=== PATIENT | male | born 1960 | race Two or more races ===

== ENCOUNTER 2025-03-27 11:31 | Inpatient (IN) | payer MEDICARE, SELFPAY ==
[2025-03-27] VITALS (13 sets, daily range): BP systolic 87–161; BP diastolic 63–97; PULSE 86–103; RESP 14–98; TEMP 36.4–36.8; O2SAT 95–99; BMI 26.6
--- NOTE | 2025-03-27 | XR_ITS ---
Examination: MRI brain without intravenous contrast. Date and time of exam: March 27, 2025 1407 hours INDICATIONS: Sudden onset weakness in the legs nausea altered mental status confusion decreased responsiveness today Technique: Multiple axial and sagittal images of the brain obtained. Siemens high-resolution 1.5 Maria Elena short bore scanners utilized. Sagittal sections, T1-weighted, TR 500, TE 14, are performed. Axial sections proton-density and T2-weighted have been obtained. Inversion recovery axial images, TR 9, 260, TE 111, TI 2500. Diffusion weighted images, axial sections, TR 4800, TE 128, B value 1000 Axial sections, ADC map, TR 4800, TE 128 Findings: Enlargement of the sella turcica is not present. The optic chiasm and infundibular are not remarkable. Prepontine and interpeduncular cisterns are not enlarged. There is no localized enlargement of the medulla or mary. Fourth ventricle and cerebellar tonsils appear normal in position. No subacute area of hemorrhage density is seen. Mass in the cerebellopontine angle region is not evident. Globes symmetrical. Orbital musculature including medial lateral rectus muscles do not exhibit abnormality. Diffusion-weighted images demonstrate 17 mm focus restricted diffusion right temporal lobe. Increased white matter signal present in the right temporal lobe Mass effect upon the ventricular system is not identified. Impression: 17 mm acute infarct right temporal lobe
--- NOTE | 2025-03-27 11:54 | EKG_ITS ---
[facility] Test Date: 2025-03-27 Pat Name: LUCIA PELAYO Department: Room: - Gender: Male [employer] Helper: : 1960 Requested By: Kristine Baptiste Order Number: [id number] Reading MD: Kristine Baptiste Measurements Intervals [place] Rate: 81 P: VA: QRS: 69 QRSD: 123 T: 54 QT: 347 QTc: 404 Interpretive Statements ATRIAL FIBRILLATION MODERATE INTRAVENTRICULAR CONDUCTION DELAY [110+ ms QRS DURATION] ABNORMAL RHYTHM ECG No previous ECG available for comparison /store/S0/[id number].pdf
--- NOTE | 2025-03-27 11:54 | XR_ITS ---
Examination: CTA carotids with intravenous contrast CTA brain, head with intravenous contrast. 2-D sagittal, coronal reconstructions. 3-D reconstructions. Exam date and time: March 27, 2025 1203 hours INDICATIONS: Generalized weakness beginning 6:00 AM this morning CTDI: vol (mGy) 27 DLP: (mGycm) 460 Technique: Multiple CTA axial brain, head carotid images post intravenous contrast injection 75 cc, Isovue-370. 2-D sagittal, coronal reconstructions. 3-D reconstructions, 3-D post processing including vascular maximum intensity projection images. Low dose protocols were performed. One or more of the following dose reduction techniques were used; automated exposure control, adjustment of the mA and/or KV according to patient size, use of iterative reconstruction technique. Findings: No significant common carotid carotid bifurcation or internal carotid artery stenoses Codominant vertebral arteries with no critical stenoses Juxtasellar supraclinoid portions both internal carotid arteries do fill Occlusion M1 segment right middle cerebral artery with decreased filling right middle cerebral artery trifurcation vessels Basilar artery posterior cerebral branches and anterior cerebral arteries fill IMPRESSION: No significant neck arterial stenoses Occlusion M1 segment right middle cerebral artery Consider MRI MRA without contrast Protocol follow-up
--- NOTE | 2025-03-27 11:58 | PD.EDAMS ---
Altered Mental Status RME/HPI General Chief Complaint: Altered Mental Status Stated Complaint: AMS Time Seen by Provider: 03/27/25 11:52 Source: patient and family Arrival date/time: 03/27/25 11:31 Mode of arrival: wheelchair Limitations: no limitations RME / HPI RME / HPI narrative: DR. HEAD MAIN ED EVALUATION: Patient was hiking and felt suddenly weak and could not walk anymore and felt nauseated but did not vomit. There was no fever. No cough. No fall or accident. Denies any chest pain or shortness of breath. This happened about an hour prior to the emergency room arrival. Patient came in with family by private vehicle. MD complaint: confusion, decreased responsiveness and weakness Onset (ago): minute(s) Time: 11:59 Timing confirmed by: spouse Severity: mild Consistency of symptoms: constant Associated symptoms: denies other symptoms Related Data Allergies Allergy/AdvReac Type Severity Reaction Status Date / Time No Known Allergies Allergy Verified 03/27/25 11:43 Review of Systems Review of Systems Systems Reviewed: All systems reviewed, normal except as documented Narrative Review of Systems: GEN: No fever, no chills, no weight loss EYES: No discharge, no visual changes, no pain HEENT: No ear pain, no congestion, no sore throat PULM: No shortness of breath, no cough, no congestion CV: No chest pain, no dyspnea on exertion, no palpitations GI: + nausea, no vomiting, no diarrhea, no pain, no constipation : No frequency, no urgency and no dysuria MUSC/SKEL: No joint pain, no back pain SKIN: No rash PSYCH: No hallucinations, no depression HEME/LYMPH: No easy bleeding or bruising tendencies NEURO: + confusion, + decreased responsiveness, + weakness (could not walk see HPI), no headache Past Medical History Social History SMOKING STATUS: Never smoker SUBSTANCE USE: does not use ALCOHOL: Never Past Medical History Comments PMH COMMENT: History of hypertension ED Exam Narrative Physical exam: General, patient is alert oriented x 4 Not in distress well-nourished Head and neck, atraumatic normocephalic Pupils equal reactive, ENT exam no mucous membranes Neck is supple tracheal stenosis was not large Chest, no chest tenderness Normal air entry bilaterally No added sounds Cardiovascular, normal heart sounds, no murmurs, no gallop, regular rate and rhythm Abdominal, soft nontender no enlarged organs Normal renal angles, bowel sounds are normal no organomegaly Genitourinary, no abdominal hernias, normal genitalia Lower extremity, no edema, no redness, no deformity Musculoskeletal, no joint effusion, no joint tenderness, Neuro, muscle power equal bilaterally, cranial nerves intact, no sensory deficits, no ataxia Skin, no rash no petechiae General Limitations: Present no limitations Course Quality Measures none Orders Category Date Time Status Patient Condition Routine Admission 03/27/25 11:53 Ordered Mule Spinner now Care 03/27/25 11:53 Active Continuous Pulse Oximetry QSHIFT Care 03/27/25 11:53 Completed MRI Screening NOW Care 03/27/25 11:54 Active MRI Screening NOW Care 03/27/25 12:20 Active NIH Stroke Scale NOW Care 03/27/25 11:53 Active Notify provider NEEDED Care 03/27/25 11:53 Active Nurse Swallow Screen x1 Care 03/27/25 11:53 Active Consult to Neurology / Tele-Neurology Stat Cons 03/27/25 11:[address] angio stroke protocol Stat Exams 03/27/25 11:[address] stroke protocol Stat Exams 03/27/25 12:00 Completed MR head/brain wo con Urgent Exams 03/27/25 Completed MR stroke protocol Stat Exams 03/27/25 11:54 Ordered B-Type Natriuretic Peptide Stat Lab 03/27/25 12:00 Completed Basic Metabolic Panel Stat Lab 03/27/25 12:00 Completed C-Reactive Protein Stat Lab 03/27/25 12:00 Completed CBC Stat Lab 03/27/25 12:00 Completed Glycohemoglobin w (eAG) Stat Lab 03/27/25 12:00 Completed Lipid Panel Stat Lab 03/27/25 12:00 Completed MHATP/TP-PA* Stat Lab 03/27/25 12:00 Received Magnesium Stat Lab 03/27/25 12:00 Completed Partial Thromboplastin Time Stat Lab 03/27/25 12:00 Completed Prothrombin Time with INR Stat Lab 03/27/25 12:00 Completed Sed Rate (ESR) Stat Lab 03/27/25 12:00 Completed Syphilis Stat Lab 03/27/25 12:00 Completed Troponin I Stat Lab 03/27/25 12:00 Completed Urinalysis Routine Lab 03/27/25 13:00 Completed Aspirin Med 03/27/25 12:20 Discontinued 325 mg PO X1 ONE Labetalol IV [Trandate IV] Med 03/27/25 11:53 Active 10 mg IVP Q15M PRN Ondansetron Inj [Zofran Inj] Med 03/27/25 11:53 Active 4 mg IV Q4HR PRN Sodium Chloride 0.9% 1000 ml [Ns] 1,000 ml Med 03/27/25 11:53 Active IV 100 mls/hr Code Status Routine Oth 03/27/25 11:53 Ordered EKG (RT) Stat RT 03/27/25 11:54 Draft Oxygen Delivery NOW RT 03/27/25 11:53 Active Referral Risk Developer NOW SS 03/27/25 11:53 Active Vital Signs Vital signs: Vital Signs Temperature 98.2 F 03/27/25 11:47 Pulse Rate 90 03/27/25 11:47 Respiratory Rate 18 03/27/25 11:47 Blood Pressure 157/83 H 03/27/25 11:47 Pulse Oximetry (%) 98 03/27/25 11:47 Oxygen Delivery Method Room Air 03/27/25 11:47 Procedures -ED EKG Interpretation #1: Date of EK03/27/25 Time of EK:22 Rate: 81 Interpretation: Interpreted by me Additional EKG comment: atrial fibrillation, rate 81, no ischemia Altered Mental Status MDM Narrative MDM Narrative:: I, Irma Jara, abraham scribing for and in the presence of Dr. Head. Syphilis is positive. Will wait on the MRI and consider LP if needed. Head CT is negative, see full report below. CT angio showed no significant neck arterial stenoses but there is an occlusion M1 segment right middle cerebral artery, see full report below. MRI shows 17 mm acute infarct right temporal lobe. Hospitalist admitted the patient for acute infarct right temporal lobe and neurologist consulted. patient had MRI which showed presence of right temporal lobe stroke Patient is right-handed however his stroke area does coincide with speech but it does not coincide with the correct dominance of hemisphere However he does not qualify for tPA or TNKase due to the fact that he is already almost 10 hours after the onset of his symptoms This started at 7 AM I spoke with the teleneurologist about her possibility of doing thrombectomy and he is also not in the right NIH score to obtain this intervention as is her NIH score barely makes him at 2 and it should be 4 and above Patient will be admitted to the hospital medicine team for management of stroke and further workup Patient vital signs were normal Final assessment Right temporal stroke acute Plan Admit to the hospital medicine team Patient data External records reviewed:: None (no previous visits) Clinical information provided by:: patient Social determinants that could affect healthcare access:: none Patient has the following chronic illnesses:: No known PMHx, surgeries, daily medications, or known allergies. How is presenting disease/condition affected by chronic disease/condition?: no chronic disease Evaluation data The following diagnostics were reviewed and interpreted by me:: lab results and radiology exam(s) Lab and/or radiology exams considered but not ordered:: none Interpretation Summary: See above under MDM narrative. RADIOLOGY Procedure(s): CT stroke protocol Accession Number(s): [id number] cc: Neel Martinez DO; Brad Young MD~ Examination: CT brain head without contrast. 2-D sagittal coronal reconstructions Date and time of exam:March 27, 2025 1126 hours INDICATIONS: Stroke alert, onset focal neurologic deficit today Technique: Multiple CT axial sections of the brain have been obtained, 5 mm slice thickness. Contrast has not been administered. 2-D sagittal, coronal reconstructions have been obtained Low dose protocols were performed. One or more of the following dose reduction techniques were used; automated exposure control, adjustment of the mA and/or KV according to patient size, use of iterative reconstruction technique. Findings: No significant ventricular enlargement. Intra-axial or extra-axial hemorrhage density is not seen. No mass effect or midline shift Basal cisterns are not remarkable. Fourth ventricle is midline. Cranial vault intact. Impression: Negative for acute hemorrhage, mass effect or midline shift Dictated By: Brad Young MD Procedure(s): CT angio stroke protocol Accession Number(s): [id number] cc: Neel Martinez DO; Brad Young MD; Jigar Hurley MD~ Examination: CTA carotids with intravenous contrast CTA brain, head with intravenous contrast. 2-D sagittal, coronal reconstructions. 3-D reconstructions. Exam date and time: March 27, 2025 1203 hours INDICATIONS: Generalized weakness beginning 6:00 AM this morning CTDI: vol (mGy) 27 DLP: (mGycm) 460 Technique: Multiple CTA axial brain, head carotid images post intravenous contrast injection 75 cc, Isovue-370. 2-D sagittal, coronal reconstructions. 3-D reconstructions, 3-D post processing including vascular maximum intensity projection images. Low dose protocols were performed. One or more of the following dose reduction techniques were used; automated exposure control, adjustment of the mA and/or KV according to patient size, use of iterative reconstruction technique. Findings: No significant common carotid carotid bifurcation or internal carotid artery stenoses Codominant vertebral arteries with no critical stenoses Juxtasellar supraclinoid portions both internal carotid arteries do fill Occlusion M1 segment right middle cerebral artery with decreased filling right middle cerebral artery trifurcation vessels Basilar artery posterior cerebral branches and anterior cerebral arteries fill IMPRESSION: No significant neck arterial stenoses Occlusion M1 segment right middle cerebral artery Consider MRI MRA without contrast Protocol follow-up Dictated By: Brad Young MD Procedure(s): MR head/brain wo con Accession Number(s): [id number] cc: Neel Martinez DO; Brad Young MD; Jigar Hurley MD~ Examination: MRI brain without intravenous contrast. Date and time of exam: March 27, 2025 1407 hours INDICATIONS: Sudden onset weakness in the legs nausea altered mental status confusion decreased responsiveness today Technique: Multiple axial and sagittal images of the brain obtained. Siemens high-resolution 1.5 Maria Elena short bore scanners utilized. Sagittal sections, T1-weighted, TR 500, TE 14, are performed. Axial sections proton-density and T2-weighted have been obtained. Inversion recovery axial images, TR 9, 260, TE 111, TI 2500. Diffusion weighted images, axial sections, TR 4800, TE 128, B value 1000 Axial sections, ADC map, TR 4800, TE 128 Findings: Enlargement of the sella turcica is not present. The optic chiasm and infundibular are not remarkable. Prepontine and interpeduncular cisterns are not enlarged. There is no localized enlargement of the medulla or mary. Fourth ventricle and cerebellar tonsils appear normal in position. No subacute area of hemorrhage density is seen. Mass in the cerebellopontine angle region is not evident. Globes symmetrical. Orbital musculature including medial lateral rectus muscles do not exhibit abnormality. Diffusion-weighted images demonstrate 17 mm focus restricted diffusion right temporal lobe. Increased white matter signal present in the right temporal lobe Mass effect upon the ventricular system is not identified. Impression: 17 mm acute infarct right temporal lobe Dictated By: Brad Young MD Medications / Prescriptions Medications or Prescriptions considered but not ordered:: none Medication administrations:: Medication Administration History Sodium Chloride (Ns) 1,000 mls @ 100 mls/hr IV .Q10H ONE Stop: 03/27/25 21:52 Last Admin: 03/27/25 12:36 Dose: 100 mls/hr Documented By: KIMBERLY Labetalol HCl (Labetalol Inj 5 Mg/Ml Vial 20 Ml) 10 mg IVP Q15M PRN PRN Reason: HYPER Ondansetron HCl (Ondansetron Inj 2 Mg/Ml Inj 2 Ml) 4 mg IV Q4HR PRN PRN Reason: NAUSEA OR VOMITING Stop: 04/26/25 11:52 Discontinued Medications Aspirin (Aspirin 325 Mg Tablet) 325 mg PO X1 ONE Stop: 03/27/25 12:21 Last Admin: 03/27/25 12:36 Dose: 325 mg Documented By: KIMBERLY see above Consultations Consultation(s) initiated? (list below): Yes Consultation #1 (Physician, Specialty, Details): Discussed test HPI, PMHx, lab, radiology results and/or management with teleneurologist Dr Neel Martinez. No TPA recommended. Recommends ASA. Time: 12:30 Consultation #2 (Physician, Specialty, Details): Discussed test HPI, PMHx, lab, radiology results and/or management with hospitalist. Will admit for further evaluation and management. Accepts patient for admission. Time: 15:55 Consultation #3 (Physician, Specialty, Details): Discussed test HPI, PMHx, lab, radiology results and/or management with teleneurologist Dr Neel Martinez. Same recommendations after MRI results, ASA and plavix to be given but no TPA. Time: 16:20 Diagnosis Differential diagnosis altered mental status: altered mental status, dementia and other (TIA, CVA) Most likely diagnosis given after review of the tests above:: Acute infarct right temporal lobe Admission Indicated Admission indicated?: indicated Admission Request Was there a request for admission?: Yes Admission Attestation Admission request attestation: Discussed case with [] from Hospitalist service regarding admission. Discussed patients ED course, exam findings, labs, and radiology results. The Hospitalist [agrees,declines] to accept the patient for admission. Disposition Plan Disposition Plan: Admit Critical Care Time Critical Care Time Critical Care Time: Yes Total Critical Care Time (min.): 60 Attestation: The high probability of sudden, clinically significant deterioration in the patient?s condition required the highest level of my preparedness to intervene urgently. The services I provided to this patient were to treat and/or prevent clinically significant deterioration. Services included the following: chart data review, reviewing nursing notes and/or old charts, documentation time, device sales consultant collaboration regarding findings and treatment options, medication orders and management, direct patient care, vital sign assessments and ordering, interpreting and reviewing diagnostic studies and lab tests. Aggregate critical care time includes only time during which I was engaged in work directly related to the patient?s care, as described above, whether at bedside or elsewhere in the Emergency Department. It did not include time spent performing other reported procedures or the services of residents, students, nurses or physician assistants. Discharge Plan Plan Patient Disposition: Admit Acute Care w/in Hospital Prescriptions/Referrals Referrals: Jigar Hurley([facility])MD [Primary Care Provider] - In 1 week Problem List Clinical Impression: Right temporal lobe infarction Patient/Caregiver Discharge Instructions Print Language: Serbian Stand Alone Forms: Mimi Award Info., Patient Portal Info Letter
[2025-03-27 12:13] LABS: Basophils # (Auto) 0.1 Thou/mm3 (0.0-0.2); Basophils % (Auto) 1 % (0-2.5); Eosinophils # (Auto) 0.1 Thou/mm3 (0.0-0.5); Eosinophils % (Auto) 1 % (0-10); Hematocrit 47.7 % (41.0-53.0); Hemoglobin 16.8 g/dL (13.5-16.0); Immature Granulocytes % (Auto) 0 % (0-0); Immature Granulocytes Auto 0.01 Thou/mm3 (0.00-0.00); Lymphocytes # (Auto) 1.5 Thou/mm3 (1.0-4.8); Lymphocytes % (Auto) 21 % (10-50); Mean Corpuscular HGB Conc 35.2 g/dl (31.0-37.0); Mean Corpuscular Hemoglobin 28.9 pg (25.0-35.0); Mean Corpuscular Volume 82 fL (80-100); Monocytes # (Auto) 0.7 Thou/mm3 (0.0-0.8); Monocytes % (Auto) 9 % (0-12); Neutrophils % (Auto) 68 % (37-80); Nucleated Red Blood Cell % 0 /100 WBC (0); Platelet Count 233 Thou/mm3 (140-440); RDW Standard Deviation 38.3 fL (35.1-43.9); Red Blood Count 5.82 Miln/mm3 (4.50-5.90); White Blood Count 7.4 Thou/mm3 (3.8-10.6)
[2025-03-27 12:25] LABS: Partial Thromboplastin Time 24.7 Seconds (22.0-36.0); Prothrombin Time 10.6 Seconds (9.0-12.2); Sed Rate (ESR) 14 mm/hr (0-20)
[2025-03-27 12:26] LABS: B-Type Natriuretic Peptide 92 pg/mL (0-100)
--- NOTE | 2025-03-27 12:28 | ESCONSULT_ITS ---
Tele Neuro Consultation Consultation Date 03/27/25 Most Recent Vital Signs Last Vital Signs Temp 98.2 F 03/27/25 11:47 Pulse 90 03/27/25 11:47 Resp 18 03/27/25 11:47 BP 157/83 H 03/27/25 11:47 Pulse Ox 98 03/27/25 11:47 O2 Del Method Room Air 03/27/25 11:47 Laboratory-Coagulation Panel PT 10.6 Seconds (9.0-12.2) 03/27/25 12:00 INR 1.0 (0.9-1.3) 03/27/25 12:00 APTT 24.7 Seconds (22.0-36.0) 03/27/25 12:00 Consultation Narrative [facility] Tele[facility]urology Consult Services Patient Name:???Lawrence Flores Date of :???1960 Identification Number:??? Date of Service:???03/27/2025 11:46:36 Diagnosis:?G93.41 - Encephalopathy Metabolic Impression: ?65YOM with a PMHx of HTN presenting to the [facility] ED in the setting of acute onset blurred vision, lethargy, and word finding difficulty. Exam grossly nonfical with subtle difficulty describing scene card yet able to name objects and with no focal lateralizing deficit. In setting of presentation, suspect acute encephalopathy, unclear as far as source, with a low suspicion for an acute ischemic process, yet would recommend obtaining MRI brain to definitively exclude a small vessel ischemic abnormality prompting subtle aphasia. Our recommendations are outlined below. Recommendations: ? Stroke/Telemetry Floor ? Neuro Checks ? Bedside Swallow Eval ? DVT Prophylaxis ? IV Fluids, Normal Saline ? Head of Bed 30 Degrees ? Euglycemia and Avoid Hyperthermia (PRN Acetaminophen) ? Initiate or continue Aspirin 325 MG daily ?-f/u CTA head/neck, CTP ?-obtain MRI brain w/o contrast (routine) ? --if + for acute stroke = will need full stroke workup (including MRA head/neck w/o contrast, lipid panel, A1c, TTE, asa/atorvastatin, etc) ? --allow for permissive HTN up to 180 systolic while MRI brain pending ? --if MRI negative for stroke = goal of normotension per primary team (if positive for stroke would adjust permissive HTN goal for systolic up to 220) ?-obtain B12, folate, TSH, ammonia ?-obtain UA, CXR ?-obtain UDS, EtOH Level ?-obtain CMP, CBC if not already done ?-When possible, avoid benzodiazepines, opioid pain medications, and anticholinergic medications ?-dvt ppx per primary team ?-PT/OT/ST consults ?-call neurology immediately with significant change in exam Sign Out: ? Discussed with Emergency Department Provider Advanced Imaging: Advanced Imaging Deferred because: Stroke not suspected with clinical presentation and exam Metrics: Last Known Well: 03/27/2025 11:00:00 Dispatch Time: 03/27/2025 11:46:36 Arrival Time: 03/27/2025 11:31:00 Initial Response Time: 03/27/2025 11:47:40Symptoms: Slow responsiveness, word finding difficulty, blurred vision. Initial patient interaction: 03/27/2025 11:56:28 NIHSS Assessment Completed: 03/27/2025 11:56:21Patient is not a candidate for Thrombolytic. Thrombolytic Medical Decision: 03/27/2025 11:56:22Patient was not deemed candidate for Thrombolytic because of following reasons: other diagnosis suspected Suspect metabolic encephalopathy in setting of exam. Stroke severity too mild (non-disabling) . I personally Reviewed the CT Head and it Showed no blood products or early ischemic changes Primary Provider Notified of Diagnostic Impression and Management Plan on: 03/27/2025 12:18:56 History of Present Illness:Patient is a 65 year old Male. Patient was brought by private transportation with symptoms of Slow responsiveness, word finding difficulty, blurred vision. 65YOM with a PMHx of HTN presenting with acute onset of word finding difficulty, confusion, and blurred vision. Per staff an per family, patient was out on a hike with his sister this morning when at 0700 he suddenly became confused, complaining of blurred vision and with slow responses. Family noticed that he was having difficulty getting his words out at that time, and patient complained of mild lightheadedness and nausea. Symptoms resolved after 15-30 minutes; however, they recurred at appx 11am today. Per family, no recent falls or head trauma, and no known history of strokes or seizures. Past Medical History: ?Hypertension ?There is no history of Atrial Fibrillation ?There is no history of Stroke ?There is no history of Seizures Medications: No Anticoagulant use? Antiplatelet use:?Yes?[id number] Reviewed EMR for current medications Allergies:? Reviewed Social History: Drug Use: No Family History: There is no family history of premature cerebrovascular disease pertinent to this consultation ROS : 14 Points Review of Systems was performed and was negative except mentioned in HPI. Past Surgical History: There Is No Surgical History Contributory To Today?s Visit Examination: BP(162/90),?Pulse(102),?Blood Glucose(110) 1A: Level of Consciousness - Alert; keenly responsive?+ 0 1B: Ask Month and Age - Both Questions Right?+ 0 1C: Blink Eyes & Squeeze Hands - Performs Both Tasks?+ 0 2: Test Horizontal Extraocular Movements - Normal?+ 0 3: Test Visual Brice - No Visual Loss?+ 0 4: Test Facial Palsy (Use Grimace if Obtunded) - Normal symmetry?+ 0 5A: Test Left Arm Motor Drift - No Drift for 10 Seconds?+ 0 5B: Test Right Arm Motor Drift - No Drift for 10 Seconds?+ 0 6A: Test Left Leg Motor Drift - No Drift for 5 Seconds?+ 0 6B: Test Right Leg Motor Drift - No Drift for 5 Seconds?+ 0 7: Test Limb Ataxia (FNF/Heel-Sharma) - No Ataxia?+ 0 8: Test Sensation - Normal; No sensory loss?+ 0 9: Test Language/Aphasia - Mild-Moderate Aphasia: Some Obvious Changes, Without Significant Limitation?+ 1 10: Test Dysarthria - Normal?+ 0 11: Test Extinction/Inattention - No abnormality?+ 0 NIHSS Score:?1 NIHSS Free Text :?Some subtle difficulty with describing objects on scene card, yet able to name and repeat with little difficulty Pre-Morbid Modified Barren Scale:1 Points = No significant disability despite symptoms; able to carry out all usual duties and activities Spoke with :?Dr Baptiste This consult was conducted in real time using interactive audio and video technology. Patient was informed of the technology being used for this visit and agreed to proceed. Patient located in hospital and provider located at home/office setting. Patient is being evaluated for possible acute neurologic impairment and high probability of imminent or life-threatening deterioration. I spent total of 25 minutes providing care to this patient, including time for face to face visit via telemedicine, review of medical records, imaging studies and discussion of findings with providers, the patient and/or family. Dr Neel Martinez [facility] For Inpatient follow-up with [facility] physician please call [facility] at . As we are not an outpatient service for any post hospital discharge needs please contact the hospital for assistance. If you have any questions for the [facility] physicians or need to reconsult for clinical or diagnostic changes please contact us via [facility] at .
[2025-03-27 12:33] LABS: Anion Gap 7 (7-16); BUN/Creatinine Ratio 9 Ratio (12-20); Blood Urea Nitrogen 9 mg/dL (9-23); Calcium 9.5 mg/dL (8.3-10.6); Carbon Dioxide 25.9 mMol/L (20.0-31.0); Chloride 105 mMol/L (98-107); Estimated Creatinine Clearance 68.9 mL/min (>60); Glucose 104 mg/dL (74-106); Magnesium 2.2 mg/dL (1.6-2.6); Osmolality,Calculated 274 (275-295); Potassium 3.7 mMol/L (3.4-5.1); Sodium 138 mMol/L (136-145); Troponin I < 0.002 ng/mL (0.0-0.045); eGFR > 60 See Note
[2025-03-27] MEDS: Aspirin 325 MG TABLET PO (12:36)
[2025-03-27] MEDS: SODIUM CHLORIDE 0.9% 1000 ML 1,000 ML 100 ML IV (12:36)
[2025-03-27 12:52] LABS: MHATP/TP-PA* See Sep Rpt; Syphilis Reactive (Nonreactive)
[2025-03-27 13:18] LABS: Collection Type, Urine Clean Catch; Squamous Epithelial Cell,Urine 0 /hpf (0-5); WBC,Urine 0 /hpf (0-5)
[2025-03-27 13:27] LABS: Bilirubin,Urine Negative (Negative); Blood,Urine Negative (Negative); Clarity,Urine Clear (Clear/Hazy); Color,Urine Colorless (Lt Yel-Yel); Glucose, Urine Negative (Negative); Ketones,Urine Negative (Negative); Leukocyte Esterase,Urine Negative (Negative); Nitrite,Urine Negative (Negative); Protein,Urine Negative (Neg - Trace); RBC,Urine < 1 /hpf (0-3); Urobilinogen,Urine Negative mg/dL (0.0-1.0)
[2025-03-27 15:55] LABS: Glucose Estimated Average 114 mg/dL (80-131); Hemoglobin A1C 5.6 % Hgb (4.8-6.0)
[2025-03-27 16:17] LABS: C-Reactive Protein < 0.5 mg/dL (0.0-0.9); Cardiac Risk Estimate 5.3 RATIO (4.0-6.7); Cholesterol 227 mg/dL (132-200); HDL Cholesterol 43 mg/dL (40-60); LDL Cholesterol,Calculated 135 mg/dL (0-130); Triglycerides 243 mg/dL (30-150)
--- NOTE | 2025-03-27 16:25 | PC.NURSE ---
STATED THAT PT WAS GETTING ANXIOUS AND MOVING AROUND IN BED WHEN HE SAT ON HIS IV LINE AND ACCIDENTALLY PULLED OUT IV. IV RESTARTED AT THIS TIME. STATES THAT PT'S SEEMS CONFUSED AND ANXIOUS. PT IS ANSWERING QUESTIONS BUT DOES SEEMS SLOW TO RESPOND. WILL INFORM ER DOCTOR.
--- NOTE | 2025-03-27 16:27 | PC.NURSE ---
DR BOONE INFORMED OF 'S CONCERNED THAT PT IS CONFUSED AND ANXIOUS. HE WILL BE IN TO SEE PT
--- NOTE | 2025-03-27 16:30 | PC.NURSE ---
RESIDENT BISHOP AT BEDSIDE TO SEE PT
--- NOTE | 2025-03-27 18:07 | PD.RESHP ---
Documentation for date of: 03/27/25 HPI History of Present Illness Chief complaint: Difficulty finding words and abnormal behavior History of present illness: HPI: A 65-year-old male patient with past medical history of hypertension, hyperlipidemia, was brought to the ED by his after he was noticed to be having difficulty finding words, abnormal facial expression, and not able to follow command. At 7 AM the patient and his were hiking however has noticed that he was unable to follow command. And when she was asking him and the question he would hesitate to answer and has difficulty to find the word to answer. She also reported that his facial expression changed as he always smiling. However, now he seems unaware of fluid surrounding. However, sometimes he respond to some questions with yes or no or simple questions. She thought that she was having hypoglycemia because he had been hiking at that time and she gave him a glass of water however was unable to hold and dropped it to the floor.?When she decided to bring him to the hospital and noticed when he was walking to the car he was unable to get up into the car. She denied any mouth deviation, however she reported that she give him gum and noticed that there was having drooling of saliva from the left side. Home medications: Pending med reconciliation ED course:NIHSS score was 1 at the ED patient was noticed to have blood pressure of 157/83, pulse rate of 90, respiratory rate of 18, temperature of 98.2, telehealth specialist recommended MRI, CT scan, CTA,. Brain CT scan was negative for any hemorrhage or mass effect MRI showed that the patient has 17 mm acute infarct of the right temporal lobe. 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 Teleneurologist recommended to admit the patient on aspirin and Plavix as his NIHSS score less than 4 no need for thrombectomy at this time. However he recommended that the patient symptoms worsen consider referring for thrombectomy. PMH: As above Social hx: Alcohol: Denied Tobacco: Denied Illicit drugs: Denied Allergies: No known allergies Review of Systems Review of Systems Systems Reviewed: All systems reviewed, normal except as documented Exam Vital Signs Temp Pulse Resp BP Pulse Ox O2 Del Method 98.3 F 88 17 161/97 H 97 Room Air 03/27/25 16:18 03/27/25 16:18 03/27/25 16:18 03/27/25 16:18 03/27/25 16:18 03/27/25 16:18 Narrative Exam GEN: AOx3, No facial asymmetry, HEENT: NC/AC, PERRLA, oral mucosa moist, neck supple CVS: RRR, S1-S2 present, no murmurs appreciated RESP: CTAB GI: soft,non distended, non tender, NBS MSK: able to move all 4 limbs, no lower extremity edema SKIN: warm and dry RECREATION OFFICER: NIH SS score 1, for the aphasia, however it was limited because of patient inability to follow commands. Results: Labs 03/28/25 01:08 03/28/25 05:19 Labs: Short CBC 03/27/25 Range/Units 12:00 WBC 7.4 (3.8-10.6) Thou/mm3 Hgb 16.8 H (13.5-16.0) g/dL Hct 47.7 (41.0-53.0) % Plt Count 233 (140-440) Thou/mm3 BMP 03/27/25 12:00 Sodium 138 Potassium 3.7 Chloride 105 Carbon Dioxide 25.9 BUN 9 Creatinine 1.0 Glucose 104 Calcium 9.5 Cardiac Enzymes 03/27/25 Range/Units 12:00 Troponin I < 0.002 (0.0-0.045) ng/mL Urine 03/27/25 Range/Units 13:00 Urine Color Colorless A (Lt Yel-Yel) Urine Clarity Clear (Clear/Hazy) Urine pH 7.0 (5.0-7.0) Ur Specific Drexel 1.020 (1.001-1.035) Urine Protein Negative (Neg - Trace) Urine Glucose (UA) Negative (Negative) Quality Measures Quality Measures none Advance care planning discussed with:: patient and spouse Medications Home Medications and Allergies Home Medications ?Medication ?Instructions ?Recorded ?Confirmed ?Type amlodipine 10 mg tablet (Norvasc) 10 mg PO QDAY 03/28/25 03/28/25 History ascorbic acid (vitamin C) 1,000 mg 1 g PO QDAY 03/28/25 03/28/25 History tablet (C-1000) aspirin 81 mg tablet 81 mg PO QDAY 03/28/25 03/28/25 History losartan 100 mg tablet 100 mg PO QDAY 03/28/25 03/28/25 History testosterone 100 mg/mL 200 mg .Route .[id number] 03/28/25 03/28/25 History intramuscular suspension Allergies Allergy/AdvReac Type Severity Reaction Status Date / Time No Known Allergies Allergy Verified 03/27/25 11:43 Visit Medications Acetaminophen (Acetaminophen 325 Mg Tablet) 650 mg PO Q6H PRN PRN Reason: Fever >101.5 Stop: 04/26/25 17:55 Acetaminophen (Acetaminophen 325 Mg Tablet) 650 mg PO Q6H PRN PRN Reason: PAIN SCALE 1-3 (mild Stop: 04/26/25 17:55 Aspirin (Aspirin 325 Mg Tablet) 325 mg PO QDAY YU Stop: 04/27/25 08:59 Atorvastatin Calcium (Atorvastatin Calcium 20 Mg Tablet) 80 mg PO HS [facility] Stop: 04/26/25 20:59 Clopidogrel Bisulfate (Clopidogrel Bisulfate 75 Mg Tablet) 75 mg PO QDAY [facility] Stop: 04/26/25 18:14 Docusate Sodium (Docusate Sod 100 Mg Capsule) 100 mg PO QDAY PRN; Protocol PRN Reason: CONSTIPATION Stop: 04/26/25 17:55 Sodium Chloride (Ns) 1,000 mls @ 100 mls/hr IV .Q10H ONE Stop: 03/27/25 21:52 Last Admin: 03/27/25 12:36 Dose: 100 mls/hr Sodium Chloride (Ns) 1,000 mls @ 75 mls/hr IV .[id number] [facility] Stop: 03/28/25 07:19 Labetalol HCl (Labetalol Inj 5 Mg/Ml Vial 20 Ml) 10 mg IVP Q2H PRN PRN Reason: SBP >180 Stop: 04/26/25 18:14 Ondansetron HCl (Ondansetron Inj 2 Mg/Ml Inj 2 Ml) 4 mg IV Q4HR PRN PRN Reason: NAUSEA OR VOMITING Stop: 04/26/25 11:52 Ondansetron HCl (Ondansetron Inj 2 Mg/Ml Inj 2 Ml) 4 mg IV Q6H PRN; Protocol PRN Reason: NAUSEA OR VOMITING Stop: 04/26/25 17:55 Pantoprazole Sodium (Pantoprazole Inj 40 Mg Vial) 40 mg IVP QDAY [facility] [place] Stop: 04/27/25 08:59 Discontinued Medications Aspirin (Aspirin 325 Mg Tablet) 325 mg PO X1 ONE Stop: 03/27/25 12:21 Last Admin: 03/27/25 12:36 Dose: 325 mg Labetalol HCl (Labetalol Inj 5 Mg/Ml Vial 20 Ml) 10 mg IVP Q15M PRN PRN Reason: HYPER Assessment & Plan Plan Summary:A 65-year-old male patient with past medical history of hypertension, hyperlipidemia, was brought to the ED by his after he was noticed to be having difficulty finding words, abnormal facial expression, and not able to follow command. Patient found to have acute ischemic stroke on the left temporal lobe and was admitted for stroke treatment. Assessment and plan #Acute ischemic stroke of the left temporal lobe Patient presented with expressive aphasia, unable to follow complex commands telehealth specialist recommended MRI, CT scan, CTA,. Brain CT scan was negative for any hemorrhage or mass effect MRI showed that the patient has 17 mm acute infarct of the right temporal lobe. 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 Plan ? Admit patient to telemetry ? Echocardiogram ? Seizures precautions ? HOB more than 30 degrees all the time ? PT and speech therapy evaluation ? Start the patient on aspirin 325 mg daily ? Start patient on Plavix 75 mg daily ? Start the patient on atorvastatin 80 mg at bedtime ? Neurochecks every 4 hours ? Monitor patient symptoms of continue to worsen consider thrombectomy option ? Neurologist consultation in house Dr Wheat was ordered, pending recommendation ? Resume diet if the patient passes bedside swallow eval ? TSH, A1c, B12 level tests #Positive syphilis test There was suspicion of associated acute encephalopathy, patient was tested positive for syphilis screening, Plan ? Follow-up on the confirmatory results ? HIV test #History of hypertension Plan ? Will allow permissive hypertension at this time as per neurology's recommendation start the patient on labetalol 10 mg every 2 hours as needed if SBP more than 180 mmHg ?Consider resuming home medications after 24 hours of permissive hypertension and after med reconciliation #History of hyperlipidemia Plan ? Atorvastatin as above Hospital Maintenance: FEN: Resume after passing bedside swallow eval, dysphagia 2 DVT ppx: SCDs GI ppx: Protonix IV lines: PIV Brian: None Code status: Full code Dispo: Telemetry - Patient's plan and care discussed with my attending, Dr. Patricio Trevizo MD Internal Medicine PGY-2 Attending Provider Attestation/Addendum I attest that I was physically present for the evaluation, physical examination, lab and imaging review of the patient with the residents. I discussed the case with the residents and agree with the findings and plans of care as documented above. Patient is a 65 years old male with past medical history of hypertension, hyperlipidemia who presented to the ED after his noticed that he is having difficulty finding words and was not able to follow commands. While patient was hiking this morning with his , she noticed that he was hesitant to answer questions and was having difficulty finding the words to answer. At bedside, patient is alert and awake, but was having hard time understanding and following commands. Also noted to have lower facial droop on left side, decreased sensation on left side. He was not answering questions every time it was asked and was just smiling most of the time. In the ED, stroke alert was called, patient underwent head CT which was negative for acute hemorrhage, mass effect or midline shift. Patient also underwent CTA head/neck which showed occlusion of M1 segment of the right middle cerebral artery. MRI brain was obtained which showed 17 mm acute infarct of the right temporal lobe. Teleneurology was consulted by ED, patient had NIHSS score of 1 on his evaluation, recommended starting statin, antiplatelets. Stated that there is no indication for mechanical thrombectomy at this time. We will admit the patient for management of acute CVA, we will start him on dual antiplatelets, high-dose statin. We will continue with frequent neurochecks, physical therapy and speech therapy. We will obtain TSH, hemoglobin A1c, vitamin B12 levels, echocardiogram and in-house neurology consult. Patient also tested positive for syphilis, we will obtain confirmatory test along with HIV serology. We will allow permissive hypertension at this time, as needed labetalol for systolic blood pressure more than 180. Ramos Gant MD
[2025-03-27 18:51] LABS: Ammonia < 10 uMol/L (11-32)
[2025-03-27] MEDS: CLOPIDOGREL BISULFATE 75 MG TABLET PO (19:01)
[2025-03-27 19:17] LABS: Vitamin B12 441 pg/mL (211-911)
[2025-03-27] MEDS: SODIUM CHLORIDE 0.9% 1000 ML 1,000 ML 75 ML IV (20:30)
[2025-03-27] MEDS: ATORVASTATIN CALCIUM 20 MG TABLET 80 MG PO (23:55)
[2025-03-28] VITALS (7 sets, daily range): BP systolic 129–152; BP diastolic 85–99; PULSE 79–97; RESP 16–98; TEMP 36.1–36.5; O2SAT 97–99; BMI 26.9
[2025-03-28 06:20] LABS: Basophils % (Auto) 1 % (0-2.5); Eosinophils # (Auto) 0.1 Thou/mm3 (0.0-0.5); Eosinophils % (Auto) 2 % (0-10); Hematocrit 49.1 % (41.0-53.0); Hemoglobin 16.6 g/dL (13.5-16.0); Immature Granulocytes % (Auto) 0 % (0-0); Immature Granulocytes Auto 0.01 Thou/mm3 (0.00-0.00); Lymphocytes # (Auto) 1.5 Thou/mm3 (1.0-4.8); Lymphocytes % (Auto) 22 % (10-50); Mean Corpuscular HGB Conc 33.8 g/dl (31.0-37.0); Mean Corpuscular Hemoglobin 28.6 pg (25.0-35.0); Mean Corpuscular Volume 85 fL (80-100); Monocytes # (Auto) 0.7 Thou/mm3 (0.0-0.8); Monocytes % (Auto) 10 % (0-12); Neutrophils # (Auto) 4.5 Thou/mm3 (1.8-7.7); Neutrophils % (Auto) 65 % (37-80); Nucleated Red Blood Cell % 0 /100 WBC (0); Platelet Count 227 Thou/mm3 (140-440); RDW Standard Deviation 39.6 fL (35.1-43.9); White Blood Count 6.9 Thou/mm3 (3.8-10.6)
[2025-03-28 07:13] LABS: Partial Thromboplastin Time 25.9 Seconds (22.0-36.0); Prothrombin Time 11.3 Seconds (9.0-12.2)
[2025-03-28 07:27] LABS: Alanine Aminotransferase 24 U/L (10-49); Albumin, Serum 4.6 gm/dL (3.4-4.8); Albumin/Globulin Ratio 1.8 (1.2-2.2); Alkaline Phosphatase 76 U/L (46-116); Anion Gap 11 (7-16); Aspartate Amino Transferase 22 U/L (0-34); BUN/Creatinine Ratio 8 Ratio (12-20); Bilirubin,Total 0.9 mg/dL (0.3-1.2); Blood Urea Nitrogen 7 mg/dL (9-23); Calcium 8.8 mg/dL (8.3-10.6); Calcium (Corrected) 8.8 mg/dL (8.5-10.1); Chloride 108 mMol/L (98-107); Creatinine (Component) 0.9 mg/dL (0.6-1.3); Estimated Creatinine Clearance 76.5 mL/min (>60); Globulin 2.6 gm/dL (2.3-3.5); Glucose 98 mg/dL (74-106); Osmolality,Calculated 281 (275-295); Phosphorous 2.6 mg/dL (2.4-5.1); Potassium 3.6 mMol/L (3.4-5.1); Sodium 142 mMol/L (136-145); Thyroid Stimulating Hormone 0.48 uIU/mL (0.55-4.78); Total Protein 7.2 gm/dL (5.7-8.2); eGFR > 60 See Note
[2025-03-28] MEDS: ONDANSETRON INJ 2 MG/ML INJ 2 ML 4 MG IV (08:04)
[2025-03-28 08:42] LABS: HIV (1&2) Antibody Rapid Non-Reactive
--- NOTE | 2025-03-28 09:03 | PC.SS ---
Follow up note: Pending neurology recommendations.
[2025-03-28] MEDS: PANTOPRAZOLE INJ 40 MG VIAL IVP (10:07)
[2025-03-28] MEDS: CLOPIDOGREL BISULFATE 75 MG TABLET PO (10:08)
[2025-03-28] MEDS: ASPIRIN EC 81 MG TABEC PO (10:08)
[2025-03-28 11:02] LABS: Free T4 (Free Thyroxine) 1.19 ng/dL (0.89-1.76)
[2025-03-28] MEDS: POTASSIUM CHLORIDE 20 mEq TABCR 40 MEQ PO (11:04)
--- NOTE | 2025-03-28 13:15 | ESPR_ITS ---
<Statement entered by Felix Trevizo MD - 03/29/25 17:07> Patient was seen and examined at bedside, agree on the assessment and plan on this note. - Patient's plan and care discussed with my attending, Dr. Patricio Trevizo MD Internal Medicine PGY-2 Documentation for date of: 03/28/25 Subjective Subjective Interval history: Patient examined at bedside today. No acute overnight events. Patient reports that he is feels awake and has energy. Of note, patient's family did confirm that the patient has been less responsive over the past couple of weeks but they did not think anything of it. They also noticed that part of his face has drooped and this is something new. No other complaints at this time. Exam Vital Signs Temp Pulse Resp BP Pulse Ox O2 Del Method 97.7 F 97 18 131/85 H 98 Room Air 03/28/25 08:00 03/28/25 08:23 03/28/25 08:23 03/28/25 08:00 03/28/25 08:00 03/28/25 08:00 Narrative Exam General: AAOx3, NAD, [place]onian-speaking male HEENT: Moist mucous membranes, conjunctiva clear, EOMI, PERRLA, Cardiovascular: S1, S2, radial pulses +2 bilat, irregularly irregular Pulmonary: CTAB bilat no cough, no wheezing GI: No tenderness to light or deep palpitation, no guarding, rigidity, rebound tenderness or distension Extremities: No presence of trace or pitting edema in lower extremities bilaterally, dorsalis pedis pulses +2 bilaterally Neuro: AAOx3, patient has some difficulty with following directions, he is slow to respond with some of his responses and actions, some possible facial droop that is residual on the left side, patient's motor strength in upper and lower extremities appears to be intact 5 out of 5, may be some response delay, also sensation appears to be intact in upper and lower extremities, patient able to discern sensation, able to smile, and move tongue, no apparent deficits with reflexes Objective Labs 03/29/25 05:45 03/29/25 05:45 Labs: Laboratory Results - last 24 hr 03/27/25 03/27/25 03/27/25 12:00 13:00 18:20 WBC RBC Hgb Hct MCV MCH MCHC RDW Std Deviation Plt Count Neut % (Auto) Lymph % (Auto) [place] % (Auto) Eos % (Auto) Baso % (Auto) Neut # (Auto) Lymph # (Auto) [place] # (Auto) Eos # (Auto) Baso # (Auto) Immature Gran # (Auto) Absolute Nucleated RBC Immature Gran % Nucleated RBC % PT INR APTT Sodium Potassium Chloride Carbon Dioxide Anion Gap BUN Creatinine Estim Creat Clear Calc eGFR BUN/Creatinine Ratio Glucose Estimated Ave Glu mg/dL 114 Hemoglobin A1c 5.6 Calculated Osmolality Calcium Corrected Calcium Phosphorus Magnesium Total Bilirubin AST ALT Alkaline Phosphatase Ammonia < 10 L C-Reactive Prot, Quant < 0.5 Total Protein Albumin Globulin Albumin/Globulin Ratio Triglycerides 243 H Cholesterol 227 H LDL Cholesterol, Calc 135 H HDL Cholesterol 43 Cholesterol/HDL Ratio 5.3 Vitamin B12 441 TSH Free T4 Ur Collection Type Clean Catch Urine Color Colorless A Urine Clarity Clear Urine pH 7.0 Ur Specific [place] 1.020 Urine Protein Negative Urine Glucose (UA) Negative Urine Ketones Negative Urine Blood Negative Urine Nitrite Negative Urine Bilirubin Negative Urine Urobilinogen (Auto) Negative Ur Leukocyte Esterase Negative Urine RBC < 1 Urine WBC 0 Ur Squamous Epith Cells 0 Ur Transition Epith Cell Ur Renal Epithelial Cell Calcium Carbonate Cryst Calcium Phosphate Cryst Calcium Oxalate Crystal Leucine Crystals Cystine Crystals Uric Acid Crystals Triple Phos Crystals Tyrosine Crystals Amorphous Crystals Urine Bacteria None Cellular Casts Epithelial Casts Fatty Casts Hyaline Casts Granular Casts Waxy Casts Broad Casts RBC Casts Urine Mucus Urine Trichomonas Ur Yeast w Hyphae Urine Yeast (Budding) Urine Sperm Ur Oval Fat Bodies HIV 1&2 Antibody Rapid 03/28/25 03/28/25 03/28/25 01:08 05:19 08:19 WBC 6.9 RBC 5.80 Hgb 16.6 H Hct 49.1 MCV 85 MCH 28.6 MCHC 33.8 RDW Std Deviation 39.6 Plt Count 227 Neut % (Auto) 65 Lymph % (Auto) 22 [place] % (Auto) 10 Eos % (Auto) 2 Baso % (Auto) 1 Neut # (Auto) 4.5 Lymph # (Auto) 1.5 [place] # (Auto) 0.7 Eos # (Auto) 0.1 Baso # (Auto) 0.0 Immature Gran # (Auto) 0.01 H Absolute Nucleated RBC 0.00 Immature Gran % 0 Nucleated RBC % 0 PT 11.3 INR 1.0 APTT 25.9 Sodium 142 Potassium 3.6 Chloride 108 H Carbon Dioxide 23.0 Anion Gap 11 BUN 7 L Creatinine 0.9 Estim Creat Clear Calc 76.5 eGFR > 60 BUN/Creatinine Ratio 8 L Glucose [address] Glu mg/dL Hemoglobin A1c Calculated Osmolality 281 Calcium 8.8 Corrected Calcium 8.8 Phosphorus 2.6 Magnesium 2.0 Total Bilirubin 0.9 AST 22 ALT 24 Alkaline Phosphatase 76 Ammonia C-Reactive Prot, Quant Total Protein 7.2 Albumin 4.6 Globulin 2.6 Albumin/Globulin Ratio 1.8 Triglycerides Cholesterol LDL Cholesterol, Calc HDL Cholesterol Cholesterol/HDL Ratio Vitamin B12 TSH 0.48 L Free T4 1.19 Ur Collection Type Cancelled Urine Color Cancelled Urine Clarity Cancelled Urine pH Cancelled Ur Specific [place] Cancelled Urine Protein Cancelled Urine Glucose (UA) Cancelled Urine Ketones Cancelled Urine Blood Cancelled Urine Nitrite Cancelled Urine Bilirubin Cancelled Urine Urobilinogen (Auto) Cancelled Ur Leukocyte Esterase Cancelled Urine RBC Cancelled Urine WBC Cancelled Ur Squamous Epith Cells Cancelled Ur Transition Epith Cell Cancelled Ur Renal Epithelial Cell Cancelled Calcium Carbonate Cryst Cancelled Calcium Phosphate Cryst Cancelled Calcium Oxalate Crystal Cancelled Leucine Crystals Cancelled Cystine Crystals Cancelled Uric Acid Crystals Cancelled Triple Phos Crystals Cancelled Tyrosine Crystals Cancelled Amorphous Crystals Cancelled Urine Bacteria Cancelled Cellular Casts Cancelled Epithelial Casts Cancelled Fatty Casts Cancelled Hyaline Casts Cancelled Granular Casts Cancelled Waxy Casts Cancelled Broad Casts Cancelled RBC Casts Cancelled Urine Mucus Cancelled Urine Trichomonas Cancelled Ur Yeast w Hyphae Cancelled Urine Yeast (Budding) Cancelled Urine Sperm Cancelled Ur Oval Fat Bodies Cancelled HIV 1&2 Antibody Rapid Non-Reactive Quality Measures Quality Measures none Advance care planning discussed with:: patient Assessment & Plan Assessment Current Active Medications: Generic Name Dose Route Start Last Admin Trade Name Freq PRN Reason Stop Dose Admin Acetaminophen 650 mg 03/27/25 17:56 Acetaminophen 325 Mg Tablet PO 04/26/25 17:55 Q6H PRN Fever >101.5 Acetaminophen 650 mg 03/27/25 17:56 Acetaminophen 325 Mg Tablet PO 04/26/25 17:55 Q6H PRN PAIN SCALE 1-3 (mild Aspirin 81 mg 03/28/25 09:00 03/28/25 10:08 Aspirin Ec 81 Mg Tabec PO 04/27/25 08:59 81 mg QDAY YU Administration Atorvastatin Calcium 80 mg 03/27/25 21:00 03/27/25 23:55 Atorvastatin Calcium 20 Mg Tablet PO 04/26/25 20:59 80 mg HS YU Administration Clopidogrel Bisulfate 75 mg 03/27/25 18:15 03/28/25 10:08 Clopidogrel Bisulfate 75 Mg Tablet PO 04/26/25 18:14 75 mg QDAY YU Administration Docusate Sodium 100 mg 03/27/25 17:56 Docusate Sod 100 Mg Capsule PO 04/26/25 17:55 QDAY PRN CONSTIPATION Protocol Labetalol HCl 10 mg 03/27/25 18:04 Labetalol Inj 5 Mg/Ml Vial 20 Ml IVP 04/26/25 18:14 Q2H PRN SBP >180 Ondansetron HCl 4 mg 03/27/25 17:56 03/28/25 08:04 Ondansetron Inj 2 Mg/Ml Inj 2 Ml IV 04/26/25 17:55 4 mg Q6H PRN Administration NAUSEA OR VOMITING Protocol Pantoprazole Sodium 40 mg 03/28/25 09:00 03/28/25 10:07 Pantoprazole Inj 40 Mg Vial IVP 04/27/25 08:59 40 mg QDAY YU Administration Plan Assessment 65-year-old male patient with past medical history of hypertension, hyperlipidemia, who is admitted for acute ischemic stroke on the left temporal lobe. #Acute ischemic stroke of the left temporal lobe Patient presented with expressive aphasia, unable to follow complex commands telehealth specialist recommended MRI, CT scan, CTA,. Brain CT scan was negative for any hemorrhage or mass effect MRI showed that the patient has 17 mm acute infarct of the right temporal lobe. CTA occlusion of the M1 segment of the right middle cerebral artery NIHSS score of 1 in the ED, teleneuro had recommended aspirin 325 and Plavix 75 mg daily, at that time no indication mechanical thrombectomy, however did recommend if patient had worsening neurologic symptoms and consider possible mechanical thrombectomy Spoke with in-house neurologist who recommends additional MRI with contrast as there is possible change for infarct, will continue with aspirin Plavix A1c 5.6, TSH 0.48, B12 unremarkable Patient could have had stroke due to new onset A-fib Plan: ? Admit patient to telemetry ? Follow-up read of echocardiogram ? Seizures precautions ? HOB more than 30 degrees all the time ? PT and speech therapy evaluation ? Continue aspirin 81 mg daily ? Continue Plavix 75 mg daily ? Continue Lipitor 80 mg daily ? Start the patient on atorvastatin 80 mg at bedtime ? Neurochecks every 4 hours ? Cardiac diet ? MRI head and brain with contrast #A-fib, new onset, rate controlled [id number]: 4 HAS-BLED: 3 Rate controlled this time, however still irregular Patient is also having ischemic stroke at this time, will follow-up with MRI brain before starting DOAC per neurology Plan: ? Cardiology consulted, appreciate recs ? Follow-up echo ? Potassium and magnesium above 4 and 2 respectively ? Will hold on adding rate control medicines at this time ? Telemetry #Subclinical hyperthyrodisim TSH 0.43, Free T4 1.1 No changes in vitals at this time, pt does not appear symptomatic Plan: ? Recheck TSH within 4-6 weeks outpatient #Positive syphilis test There was suspicion of associated acute encephalopathy, patient was tested positive for syphilis screening HIV negative Plan: ? Follow-up on the treponema pallidum Antibody #History of hypertension Plan: ? Between permissive hypertension #History of hyperlipidemia LDL 135; Total 227 Plan: ? Atorvastatin as above #Health Maintenance Disposition: Telemetry DVT prophylaxis: SCDs GI prophylaxis: Protonix Diet: Cardiac CODE STATUS: Full code Patient seen and care discussed with my senior resident, Dr. Trevizo, and my attending physician, Dr. Alfreda Heaton, PGY-1 Attending Provider Attestation/Addendum I attest that I was physically present for the evaluation, physical examination, lab and imaging review of the patient with the residents. I discussed the case with the residents and agree with the findings and plans of care as documented above. At bedside today, patient appears comfortable and denies any complaints. Family stated that he is speech has been improving and his talking more to the family members. Alert and oriented, has been having hard time following directions and comprehending instructions. Possible mild facial droop on left side, also while checking for touch sensation on left upper and lower extremity, unclear if has decreased sensation on left side as patient is unable to follow direction well. MRI shows 7 mm acute infarct in the right temporal lobe. Continues to be on aspirin and Plavix along with statin. Neurology following, recommended follow- up MRI brain with contrast, order placed. Patient also has new onset A-fib, cardiology consulted, recommended to start anticoagulation after neurology clearance. We will plan on restarting Eliquis after the follow-up brain MRI. Patient noted to have low TSH but free T4 came back at normal level. Confirmatory syphilis test is still pending. Ramos Gant MD
--- NOTE | 2025-03-28 13:45 | PC.CC ---
Pt entered into [facility]
--- NOTE | 2025-03-28 14:27 | PD.IMCONS ---
HPI Data of Consult Requesting Physician: Ramos Gant MD Primary Care Provider: Jigar Hurley MD Consult Narrative History of present illness: This is a 65-year-old male patient with past medical history of hypertension, hyperlipidemia, pt admitted with aphasia EKG afib ;[id number] cardiology conulted MRi showed R temporal acute infarct cc:: cc: Ramos Gant MD Meds Home Medications and Allergies Home Medications ?Medication ?Instructions ?Recorded ?Confirmed ?Type amlodipine 10 mg tablet (Norvasc) 10 mg PO QDAY 03/28/25 03/28/25 History ascorbic acid (vitamin C) 1,000 mg 1 g PO QDAY 03/28/25 03/28/25 History tablet (C-1000) aspirin 81 mg tablet 81 mg PO QDAY 03/28/25 03/28/25 History losartan 100 mg tablet 100 mg PO QDAY 03/28/25 03/28/25 History testosterone 100 mg/mL 200 mg .Route .[id number] 03/28/25 03/28/25 History intramuscular suspension Allergies Allergy/AdvReac Type Severity Reaction Status Date / Time No Known Allergies Allergy Verified 03/27/25 11:43 Exam Vital Signs Temp Pulse Resp BP Pulse Ox O2 Del Method 97.7 F 96 16 129/87 H 97 Room Air 03/28/25 12:00 03/28/25 12:00 03/28/25 12:00 03/28/25 12:00 03/28/25 12:00 03/28/25 12:00 Routine HEENT Exam Head: Present normocephalic and atraumatic Eye: Present EOMI and PERRL ENT: Present mucous membranes moist Routine Neck Exam Neck: Present supple and trachea midline Routine Respiratory Exam Respiratory: Present chest non-tender, lungs clear, normal breath sounds and no resp distress Routine Cardiovascular Exam Cardiovascular: Present RRR Routine Abdominal Exam Abdominal: Present soft and normoactive bowel sounds Routine Extremities Exam Extremities: Present full ROM Routine Skin Exam Skin: Present intact, dry and warm Routine Neurological Exam Neurological: Present alert, oriented X3 and CN II-XII intact Routine Psychiatric Exam Psychiatric: Present normal affect and normal thought process Results Labs 03/28/25 01:08 03/28/25 05:19 Labs: Short CBC 03/28/25 Range/Units 01:08 WBC 6.9 (3.8-10.6) Thou/mm3 Hgb 16.6 H (13.5-16.0) g/dL Hct 49.1 (41.0-53.0) % Plt Count 227 (140-440) Thou/mm3 BMP 03/28/25 05:19 Sodium 142 Potassium 3.6 Chloride 108 H Carbon Dioxide 23.0 BUN 7 L Creatinine 0.9 Glucose 98 Calcium 8.8 Liver Function 03/28/25 Range/Units 05:19 Total Bilirubin 0.9 (0.3-1.2) mg/dL AST 22 (0-34) U/L ALT 24 (10-49) U/L Alkaline Phosphatase 76 (46-116) U/L Albumin 4.6 (3.4-4.8) gm/dL Urine 03/28/25 Range/Units 01:08 Urine Color Cancelled Urine Clarity Cancelled Urine pH Cancelled Ur Specific [place] Cancelled Urine Protein Cancelled Urine Glucose (UA) Cancelled Assessment and Plan Assessment and plan (1) Right temporal lobe infarction: Status: Acute (2) Afib: Status: Acute Additional Assessment & Plan Additional Plan: pt will benefit form press tender long goods anticoagulation neurology clearance needef
--- NOTE | 2025-03-28 14:41 | ESCONSULT_ITS ---
HPI Data of Consult Requesting Physician: Ramos Gant MD Admitting Provider: Ramos Gant MD Attending Provider: Ramos Gant MD Primary Care Provider: Jigar Hurley MD Consult Narrative History of present illness: The patient is a 65-year-old male with a previous medical history of hypertension, hyperlipidemia on testosterone who was brought to the hospital due to difficulty finding words, blurry vision, confusion that started yesterday at approximately 7 AM when his symptoms started, they resolved after 15 to 30 minutes however reoccurred at 11 AM. In the ED he was hemodynamically stable, imaging showed distal right M1 severe occlusion with distal filling of the right MCA territory and 17 mm right temporal infarct. Teleneuro was consulted, NIHSS was 1, patient was recommended to be started on aspirin. EKG showed atrial fibrillation. Patient was admitted for acute stroke treatment and management. Labs were remarkable for erythrocytosis, positive VDRL. HIV rapid antigen test was negative. 03/28/25: Patient was seen and examined by the bedside. Family members providing translation. Patient still has aphasia, however family reports that it has improved. Follow-up commands after repeating. Denies chest pain, palpitations. Social history: former smoker, quit at 40, used to drink alcohol, quit in the 40s, denies recreations substances. Medications: reports taking testosterone prescribed by PCP due to borderline low testosterone levels. cc:: cc: Ramos Gant MD Review of Systems Review of Systems Systems Reviewed: All systems reviewed, normal except as documented Exam Vital Signs Temp Pulse Resp BP Pulse Ox O2 Del Method 97.7 F 96 16 129/87 H 97 Room Air 03/28/25 12:00 03/28/25 12:00 03/28/25 12:00 03/28/25 12:00 03/28/25 12:03/28/25 12:00 Narrative Exam Physical Exam General: Awake and in no acute distress. Conversational and non-toxic appearing. HEENT: Normocephalic, atraumatic, mucous membranes moist. Heart: Regular rate and rhythm, no murmurs. Lungs: Clear to auscultation with no wheezing or crackles. Abdomen: Soft, nondistended, nontender, positive bowel sounds. ?No guarding or rebound tenderness. Neurologic: Alert, awake and oriented x3. Cranial nerves: II through XII grossly intact. Speech and language: slow, aphasia. Motor system: Tone and bulk: Normal: Strength: 5 out of 5 in all 4 extremities; No pronator drift noted. Deep tendon reflexes: 2+ bilaterally symmetrical. Sensory system: Intact to all modalities of sensation bilaterally. Coordination: Intact to [id number] and [id number] test bilaterally. No ataxia, no dysmetria, or dysdiadochokinesia noted. No intention tremors noted. Gait: Not tested. [place]: Not tested. No signs of meningeal irritation noted. Extremities: No edema. Skin: No rash or ecchymoses. Results Labs 03/28/25 01:08 03/28/25 05:19 Labs: Short CBC 03/28/25 Range/Units 01:08 WBC 6.9 (3.8-10.6) Thou/mm3 Hgb 16.6 H (13.5-16.0) g/dL Hct 49.1 (41.0-53.0) % Plt Count 227 (140-440) Thou/mm3 BMP 03/28/25 05:19 Sodium 142 Potassium 3.6 Chloride 108 H Carbon Dioxide 23.0 BUN 7 L Creatinine 0.9 Glucose 98 Calcium 8.8 Liver Function 03/28/25 Range/Units 05:19 Total Bilirubin 0.9 (0.3-1.2) mg/dL AST 22 (0-34) U/L ALT 24 (10-49) U/L Alkaline Phosphatase 76 (46-116) U/L Albumin 4.6 (3.4-4.8) gm/dL Urine 03/28/25 Range/Units 01:08 Urine Color Cancelled Urine Clarity Cancelled Urine pH Cancelled Ur Specific [place] Cancelled Urine Protein Cancelled Urine Glucose (UA) Cancelled Quality Measures Quality Measures VTE prophylaxis Advance care planning discussed with:: other Medications Home Medications and Allergies Home Medications ?Medication ?Instructions ?Recorded ?Confirmed ?Type amlodipine 10 mg tablet (Norvasc) 10 mg PO QDAY 03/28/25 History ascorbic acid (vitamin C) 1,000 mg 1 g PO QDAY 5 03/28/25 History tablet (C-1000) aspirin 81 mg tablet 81 mg PO QDAY 03/28/2503/28 History losartan 100 mg tablet 100 mg PO QDAY 03/28/25 0506/15 History testosterone 100 mg/mL 200 mg .Route .[id number] 03/2803/28/25 History intramuscular suspension Allergies Allergy/AdvReac Type Severity Reaction Status Date / Time No Known Allergies Allergy Verified 03/27/25 11:43 Visit Medications Acetaminophen (Acetaminophen 325 Mg Tablet) 650 mg PO Q6H PRN PRN Reason: Fever >101.5 Stop: 04/26/25 17:55 Acetaminophen (Acetaminophen 325 Mg Tablet) 650 mg PO Q6H PRN PRN Reason: PAIN SCALE 1-3 (mild Stop: 04/26/25 17:55 Aspirin (Aspirin Ec 81 Mg Tabec) 81 mg PO QDAY [facility] Stop: 04/27/25 08:59 Last Admin: 03/28/25 10:08 Dose: 81 mg Atorvastatin Calcium (Atorvastatin Calcium 20 Mg Tablet) 80 mg PO HS [facility] Stop: 04/26/25 20:59 Last Admin: 03/27/25 23:55 Dose: 80 mg Clopidogrel Bisulfate (Clopidogrel Bisulfate 75 Mg Tablet) 75 mg PO QDAY [facility] Stop: 04/26/25 18:14 Last Admin: 03/28/25 10:08 Dose: 75 mg Docusate Sodium (Docusate Sod 100 Mg Capsule) 100 mg PO QDAY PRN; Protocol PRN Reason: CONSTIPATION Stop: 04/26/25 17:55 Labetalol HCl (Labetalol Inj 5 Mg/Ml Vial 20 Ml) 10 mg IVP Q2H PRN PRN Reason: SBP >180 Stop: 04/26/25 18:14 Ondansetron HCl (Ondansetron Inj 2 Mg/Ml Inj 2 Ml) 4 mg IV Q6H PRN; Protocol PRN Reason: NAUSEA OR VOMITING Stop: 04/26/25 17:55 Last Admin: 03/28/25 08:04 Dose: 4 mg Pantoprazole Sodium (Pantoprazole Inj 40 Mg Vial) 40 mg IVP QDAY [facility] Stop: 04/27/25 08:59 Last Admin: 03/28/25 10:07 Dose: 40 mg Discontinued Medications Aspirin (Aspirin 325 Mg Tablet) 325 mg PO X1 ONE Stop: 03/27/25 12:21 Last Admin: 03/27/25 12:36 Dose: 325 mg Aspirin (Aspirin 325 Mg Tablet) 325 mg PO QDAY [facility] Stop: 04/27/25 08:59 Sodium Chloride (Ns) 1,000 mls @ 100 mls/hr IV .Q10H ONE Stop: 03/27/25 21:52 Last Infusion: 03/27/25 23:54 Dose: Infused Sodium Chloride (Ns) 1,000 mls @ 75 mls/hr IV .[id number] Stop: 03/28/25 07:19 Last Admin: 03/27/25 20:30 Dose: 75 mls/hr Labetalol HCl (Labetalol Inj 5 Mg/Ml Vial 20 Ml) 10 mg IVP Q15M PRN PRN Reason: HYPER Ondansetron HCl (Ondansetron Inj 2 Mg/Ml Inj 2 Ml) 4 mg IV Q4HR PRN PRN Reason: NAUSEA OR VOMITING Stop: 04/26/25 11:52 Potassium Chloride (Potassium Chloride 20 Meq Tabcr) 40 meq PO X1 ONE Stop: 03/28/25 09:53 Last Admin: 03/28/25 11:04 Dose: 40 meq Assessment & Plan Plan The patient is a 65-year-old male with a previous medical history of hypertension, hyperlipidemia who was brought to the hospital due to difficulty finding words, blurry vision, confusion that started yesterday at approximately 7 AM when his symptoms started, they resolved after 15 to 30 minutes however reoccurred at 11 AM. #Acute stroke #Right MCA stroke #Hyperlipidemia 03/28/25: Patient was seen and examined by the bedside. Family members providing translation. Patient is still having aphasia. MRI showed 17 mm right temporal lesion, round in shape with hyperintensity of temporal gyri. Plan: -Telemetry Floor -Neuro Checks q4hr - DVT Prophylaxis -Head of Bed 30 Degrees -Euglycemia and Avoid Hyperthermia (PRN Acetaminophen) -Atorvastatin 80 mg qday -Start Eliquis 5 mg BID starting 03/29 - MRI with contrast - physical therapy, speech therapy - BP control - hold testosterone - Echo with bubble study - syphilis confirmatory testing pending #Afib #Polycytemia - management per primary team Plan of care discussed with attending Dr. Wheat. Lovely Aguilar MD, PGY 1. Attending Provider Attestation/Addendum I independently reviewed the patient chart and I agreed with resident's findings, assessment and plan of care. Will start him on Eliquis 5 mg twice a day from tomorrow after the repeat MRI brain with contrast. Noted he has new onset atrial fibrillation. He does not have any focal motor or sensory deficit.
--- NOTE | 2025-03-28 14:44 | PC.PT ---
Patient is safe to ambulate to the bathroom and in the halls with 1 staff and the IV pole. Patient is also safe to shower with a shower chair and family member inside the bathroom with him. RN made aware.
--- NOTE | 2025-03-28 15:45 | PC.SS ---
SS met with patient and regarding his d/c plan.? Pt is alert/oriented.? Pt was admitted for CVA.? confirmed patient's demographic and contact information is correct on facesheet.? Pt resides with .? Pt ambulates independently without assistance or DME.? Pt is ok with all ADLs.? Patient?s pharmacy [facility] choice [facility] [address] , Cinda Feng is patient's medical decision maker if he is unable.? SS spoke to and pt about d/c options. SS explained recommendations from PT to an Acute Rehab Facility or Out Patient PT.? refused SNF, Acute Rehab, and Out Patient PT.? 's choice is for pt to return home upon d/c with Home Health Services.? does not have preference for HH.? Pt followed up with PCP 1 month ago.? Pt does not have an advance directive, SS offered, and was receptive.? SS provided with Advance Directive and [facility]. D/C plan:? Return home with Home Health Next of Kin:? ?Cinda Feng, , phone# [phone] PCP:? Dr. Jason Gonzalez or Daryn Hurley from [facility] in [place] Address:? Correct on facesheet HH:? Does not have prefernce
--- NOTE | 2025-03-28 17:56 | ECHO_ITS ---
Transthoracic Echo Report Ht (in): 67 Wt (lb): 172 Exam Location: Portable Status: Inpatient Sharepoint Architect: KILEY Bartholomew^^^^ Indications: Procedure Performed: BP: / HR: 102 Rhythm: Atrial fibrillation Technical Quality: Fair MEASUREMENTS (Male / Female) Normal Values 2D ECHO LV Diastolic Diameter PLAX 4.5 cm 4.2 - 5.9 / 3.9 - 5.3 cm LV Systolic Diameter PLAX 2.9 cm IVS Diastolic Thickness 1.0 cm 0.6 - 1.0 / 0.6 - 0.9 cm LVPW Diastolic Thickness 0.9 cm 0.6 - 1.0 / 0.6 - 0.9 cm LV Relative Wall Thickness 0.4 LVOT Diameter 1.8 cm Aortic Root Diameter 3.9 cm LA Systolic Diameter LX 4.1 cm 3.0 - 4.0 / 2.7 - 3.8 cm LA Volume Index 47.8 cm?/m? 16 - 28 cm?/m? DOPPLER AV Peak Velocity 108.0 cm/s AV Peak Gradient 4.7 mmHg AV Mean Gradient 3.5 mmHg AV Velocity Time Integral 22.8 cm AI Peak Velocity 261.5 cm/s AI Peak Gradient 27.4 mmHg AI Pressure Half Time 411.5 ms LVOT Peak Velocity 108.0 cm/s LVOT Peak Gradient 4.7 mmHg LVOT Velocity Time Integral 18.1 cm LVOT Cardiac Index 2426.5 cm?/min?m? AV Area Cont Eq vti 2.0 cm? AV Area Cont Eq pk 2.5 cm? MV Peak Velocity 103.0 cm/s MV Peak Gradient 4.2 mmHg MV Mean Velocity 73.4 cm/s MV Mean Gradient 2.0 mmHg MV Area PHT 2.8 cm? MR Peak Velocity 467.0 cm/s MR Peak Gradient 87.2 mmHg Mitral E Point Velocity 81.1 cm/s LV E' Lateral Velocity 14.7 cm/s Mitral E to LV E' Lateral Ratio 5.5 LV E' Septal Velocity 12.3 cm/s Mitral E to LV E' Septal Ratio 6.6 TR Peak Velocity 286.3 cm/s TR Peak Gradient 32.8 mmHg PV Peak Velocity 94.7 cm/s PV Peak Gradient 3.6 mmHg RVOT Peak Velocity 68.0 cm/s FINDINGS Left Ventricle Normal left ventricular size, wall thickness, systolic function with no obvious regional wall motion abnormalities. The left ventricular ejection fraction is normal, estimated at 55-60%. There is grade I diastolic dysfunction of the left ventricle (impaired relaxation pattern). Right Ventricle The right ventricle is normal in size and systolic function. The estimated right ventricular systolic pressure, 35 mmHg. Left Atrium Mildly increased left atrial volume 47.8 mL/m?. Right Atrium The right atrium is normal by two-dimensional imaging, color flow and Doppler imaging with no structural abnormalities, no thrombus formation present. Atrial Septum The interatrial septum is normal to color flow Doppler and agitated saline imaging. Aorta The aorta is normal by two-dimensional, color flow and Doppler interrogation. Mitral Valve [id number] mitral regurgitation. Mild mitral annular calcification. Aortic Valve Mild thickening of the aortic valve leaflets. Aortic valve sclerosis. Tricuspid Valve There is mild tricuspid valve regurgitation. Pulmonic Valve Trivial pulmonic valve regurgitation. Vessels The pulmonary artery appears normal. The inferior vena cava pulmonary and hepatic veins appear normal. Pericardium The pericardium is normal by two-dimensional imaging. There is no significant pericardial effusion. CONCLUSIONS Indication: Stroke Bubble study negative for any PFO or ASD. Consider LUCRETIA if high clinical index of suspicion. Normal LV size and function with an estimated ejection fraction of 60 to 65%. Diastolic dysfunction stage I. Normal RV size and function. Mildly elevated RVSP 35 to 40 mmHg. Mild to moderate TR Mild aortic valve sclerosis without stenosis. Mild MAC. Mild MR. No evidence of any pericardial effusion. Brendan Boss (Electronically Signed) Final Date: 28 Mar 2025 16:41
[2025-03-28] MEDS: ATORVASTATIN CALCIUM 20 MG TABLET 80 MG PO (20:35)
[2025-03-29] VITALS (8 sets, daily range): BP systolic 123–150; BP diastolic 71–96; PULSE 61–102; RESP 16–98; TEMP 36.6–37.2; O2SAT 96–99; BMI 26.9
--- NOTE | 2025-03-29 | XR_ITS ---
Examination: MRI brain with intravenous contrast TECHNIQUE: Multiple axial sagittal coronal brain MRI images post intravenous ministration 13 cc gadolinium INDICATIONS: ER presentation March 27, 2025 slurred speech facial drooping, 17 mm acute infarct right temporal lobe Exam date and time: March 29, 2025 1004 hours FINDINGS: Ventricles normal in size and configuration No mass effect upon the ventricular system Acute infarct in the right temporal lobe noted No abnormal enhancement involving cerebellar region or cerebral hemispheres IMPRESSION: 17 mm acute infarct right temporal lobe No abnormal enhancing cerebellar or cerebral lesions
--- NOTE | 2025-03-29 05:30 | PC.NURSE ---
notified Dr. Leary of patients heart rate going to 43, did not sustain, afib. no new orders at this time
[2025-03-29 06:43] LABS: Basophils % (Auto) 1 % (0-2.5); Eosinophils # (Auto) 0.2 Thou/mm3 (0.0-0.5); Eosinophils % (Auto) 2 % (0-10); Hemoglobin 15.6 g/dL (13.5-16.0); Immature Granulocytes % (Auto) 0 % (0-0); Immature Granulocytes Auto 0.01 Thou/mm3 (0.00-0.00); Lymphocytes # (Auto) 1.7 Thou/mm3 (1.0-4.8); Lymphocytes % (Auto) 26 % (10-50); Mean Corpuscular HGB Conc 33.9 g/dl (31.0-37.0); Mean Corpuscular Hemoglobin 28.7 pg (25.0-35.0); Mean Corpuscular Volume 85 fL (80-100); Monocytes # (Auto) 0.8 Thou/mm3 (0.0-0.8); Monocytes % (Auto) 12 % (0-12); Neutrophils # (Auto) 3.8 Thou/mm3 (1.8-7.7); Neutrophils % (Auto) 60 % (37-80); Nucleated Red Blood Cell % 0 /100 WBC (0); Platelet Count 220 Thou/mm3 (140-440); Red Blood Count 5.43 Miln/mm3 (4.50-5.90); White Blood Count 6.4 Thou/mm3 (3.8-10.6)
[2025-03-29 07:15] LABS: Alanine Aminotransferase 21 U/L (10-49); Albumin, Serum 4.1 gm/dL (3.4-4.8); Albumin/Globulin Ratio 1.7 (1.2-2.2); Alkaline Phosphatase 67 U/L (46-116); Anion Gap 7 (7-16); Aspartate Amino Transferase 20 U/L (0-34); BUN/Creatinine Ratio 10 Ratio (12-20); Bilirubin,Total 0.8 mg/dL (0.3-1.2); Blood Urea Nitrogen 8 mg/dL (9-23); Calcium 8.6 mg/dL (8.3-10.6); Calcium (Corrected) 8.6 mg/dL (8.5-10.1); Carbon Dioxide 24.7 mMol/L (20.0-31.0); Chloride 108 mMol/L (98-107); Creatinine (Component) 0.8 mg/dL (0.6-1.3); Estimated Creatinine Clearance 86.1 mL/min (>60); Globulin 2.4 gm/dL (2.3-3.5); Glucose 90 mg/dL (74-106); Magnesium 1.9 mg/dL (1.6-2.6); Osmolality,Calculated 277 (275-295); Potassium 3.7 mMol/L (3.4-5.1); Sodium 140 mMol/L (136-145); Total Protein 6.5 gm/dL (5.7-8.2); eGFR > 60 See Note
--- NOTE | 2025-03-29 07:53 | PD.IMPROG ---
Documentation for date of: 03/29/25 Subjective Subjective Interval history: pt stable continue eliquis Exam Vital Signs Temp Pulse Resp BP Pulse Ox O2 Del Method 97.9 F 61 19 135/93 H 96 Room Air 03/29/25 00:00 03/29/25 04:00 03/29/25 04:00 03/29/25 00:00 03/29/25 04:00 03/29/25 04:00 Routine HEENT Exam Head: Present normocephalic and atraumatic Eye: Present EOMI and PERRL ENT: Present mucous membranes moist Routine Neck Exam Neck: Present supple and trachea midline Routine Respiratory Exam Respiratory: Present chest non-tender, lungs clear, normal breath sounds and no resp distress Routine Cardiovascular Exam Cardiovascular: Present RRR Routine Abdominal Exam Abdominal: Present soft and normoactive bowel sounds Routine Extremities Exam Extremities: Present full ROM Routine Skin Exam Skin: Present intact, dry and warm Routine Neurological Exam Neurological: Present alert, oriented X3 and CN II-XII intact Routine Psychiatric Exam Psychiatric: Present normal affect and normal thought process Objective Labs 03/29/25 05:45 03/29/25 05:45 Labs: Laboratory Results - last 24 hr 03/27/25 03/28/25 03/28/25 12:00 01:08 08:19 WBC RBC Hgb Hct MCV MCH MCHC RDW Std Deviation Plt Count Neut % (Auto) Lymph % (Auto) [place] % (Auto) Eos % (Auto) Baso % (Auto) Neut # (Auto) Lymph # (Auto) [place] # (Auto) Eos # (Auto) Baso # (Auto) Immature Gran # (Auto) Absolute Nucleated RBC Immature Gran % Nucleated RBC % Sodium Potassium Chloride Carbon Dioxide Anion Gap BUN Creatinine Estim Creat Clear Calc eGFR BUN/Creatinine Ratio Glucose Calculated Osmolality Calcium Corrected Calcium Phosphorus Magnesium Total Bilirubin AST ALT Alkaline Phosphatase Total Protein Albumin Globulin Albumin/Globulin Ratio Free T4 1.19 Ur Collection Type Cancelled Urine Color Cancelled Urine Clarity Cancelled Urine pH Cancelled Ur Specific [place] Cancelled Urine Protein Cancelled Urine Glucose (UA) Cancelled Urine Ketones Cancelled Urine Blood Cancelled Urine Nitrite Cancelled Urine Bilirubin Cancelled Urine Urobilinogen (Auto) Cancelled Ur Leukocyte Esterase Cancelled Urine RBC Cancelled Urine WBC Cancelled Ur Squamous Epith Cells Cancelled Ur Transition Epith Cell Cancelled Ur Renal Epithelial Cell Cancelled Calcium Carbonate Cryst Cancelled Calcium Phosphate Cryst Cancelled Calcium Oxalate Crystal Cancelled Leucine Crystals Cancelled Cystine Crystals Cancelled Uric Acid Crystals Cancelled Triple Phos Crystals Cancelled Tyrosine Crystals Cancelled Amorphous Crystals Cancelled Urine Bacteria Cancelled Cellular Casts Cancelled Epithelial Casts Cancelled Fatty Casts Cancelled Hyaline Casts Cancelled Granular Casts Cancelled Waxy Casts Cancelled Broad Casts Cancelled RBC Casts Cancelled Urine Mucus Cancelled Urine Trichomonas Cancelled Ur Yeast w Hyphae Cancelled Urine Yeast (Budding) Cancelled Urine Sperm Cancelled Ur Oval Fat Bodies Cancelled T.pallidum Ab (MHA) See Jul Rpt HIV 1&2 Antibody Rapid Non-Reactive 03/29/25 05:45 WBC 6.4 RBC 5.43 Hgb 15.6 Hct 46.0 MCV 85 MCH 28.7 MCHC 33.9 RDW Std Deviation 40.0 Plt Count 220 Neut % (Auto) 60 Lymph % (Auto) 26 [place] % (Auto) 12 Eos % (Auto) 2 Baso % (Auto) 1 Neut # (Auto) 3.8 Lymph # (Auto) 1.7 [place] # (Auto) 0.8 Eos # (Auto) 0.2 Baso # (Auto) 0.0 Immature Gran # (Auto) 0.01 H Absolute Nucleated RBC 0.00 Immature Gran % 0 Nucleated RBC % 0 Sodium 140 Potassium 3.7 Chloride 108 H Carbon Dioxide 24.7 Anion Gap 7 BUN 8 L Creatinine 0.8 Estim Creat Clear Calc 86.1 eGFR > 60 BUN/Creatinine Ratio 10 L Glucose 90 Calculated Osmolality 277 Calcium 8.6 Corrected Calcium 8.6 Phosphorus 3.0 Magnesium 1.9 Total Bilirubin 0.8 AST 20 ALT 21 Alkaline Phosphatase 67 Total Protein 6.5 Albumin 4.1 D Globulin 2.4 Albumin/Globulin Ratio 1.7 Free T4 Ur Collection Type Urine Color Urine Clarity Urine pH Ur Specific [place] Urine Protein Urine Glucose (UA) Urine Ketones Urine Blood Urine Nitrite Urine Bilirubin Urine Urobilinogen (Auto) Ur Leukocyte Esterase Urine RBC Urine WBC Ur Squamous Epith Cells Ur Transition Epith Cell Ur Renal Epithelial Cell Calcium Carbonate Cryst Calcium Phosphate Cryst Calcium Oxalate Crystal Leucine Crystals Cystine Crystals Uric Acid Crystals Triple Phos Crystals Tyrosine Crystals Amorphous Crystals Urine Bacteria Cellular Casts Epithelial Casts Fatty Casts Hyaline Casts Granular Casts Waxy Casts Broad Casts RBC Casts Urine Mucus Urine Trichomonas Ur Yeast w Hyphae Urine Yeast (Budding) Urine Sperm Ur Oval Fat Bodies T.pallidum Ab (MHA) HIV 1&2 Antibody Rapid Assessment & Plan A&P Narrative continue eliquis Time Spent With Patient Time: Total time spent is greater than 50% in coordination of care (as documented) at patient's floor/unit and/or counseling patient:
[2025-03-29] MEDS: POTASSIUM CHLORIDE 20 mEq TABCR 40 MEQ PO (09:01)
[2025-03-29] MEDS: Magnesium Sulfate 2 GM Ivpb 2 GM/50 ML BAG IV (09:01)
[2025-03-29] MEDS: PANTOPRAZOLE 40 MG TABLET PO (09:11)
--- NOTE | 2025-03-29 11:03 | PD.RESPRO ---
Documentation for date of: 03/29/25 Subjective Subjective Interval history: Patient was seen and examined by the bedside. No acute overnight events. Patient's speech has improved, but still continues to have elements of aphasia. MRI with contrast was negative for ring enhabncing lesions. RPR was negative, TP-PA test was inconclusive. HIV rapid antigen negative. Will start Eliquis. Exam Vital Signs Temp Pulse Resp BP Pulse Ox O2 Del Method 97.8 F 96 18 147/87 H 98 Room Air 03/29/25 07:59 03/29/25 09:40 03/29/25 09:40 03/29/25 07:59 03/29/25 07:59 03/29/25 07:59 Narrative Exam Physical Exam General: Awake and in no acute distress. Conversational and non-toxic appearing. HEENT: Normocephalic, atraumatic, mucous membranes moist. Heart: Irregular rate and rhythm, no murmurs. Lungs: Clear to auscultation with no wheezing or crackles. Abdomen: Soft, nondistended, nontender, positive bowel sounds. ?No guarding or rebound tenderness. Neurologic: Alert, awake and oriented x3. Cranial nerves: II through XII grossly intact. Speech and language: elements of aphasia. Motor system: Tone and bulk: Normal: Strength: 5 out of 5 in all 4 extremities; No pronator drift noted. Deep tendon reflexes: 2+ bilaterally symmetrical. Coordination: Intact to [id number] and [id number] test bilaterally. No ataxia, no dysmetria, or dysdiadochokinesia noted. No intention tremors noted. Gait: Normal. Toe, heel, tandem walk all are normal. Romberg: Negative. No signs of meningeal irritation noted. Extremities: No edema. Skin: No rash or ecchymoses. Objective Labs 03/29/25 05:45 03/29/25 05:45 Labs: Laboratory Results - last 24 hr 03/27/25 03/28/25 03/29/25 12:00 01:08 05:45 WBC 6.4 RBC 5.43 Hgb 15.6 Hct 46.0 MCV 85 MCH 28.7 MCHC 33.9 RDW Std Deviation 40.0 Plt Count 220 Neut % (Auto) 60 Lymph % (Auto) 26 [place] % (Auto) 12 Eos % (Auto) 2 Baso % (Auto) 1 Neut # (Auto) 3.8 Lymph # (Auto) 1.7 [place] # (Auto) 0.8 Eos # (Auto) 0.2 Baso # (Auto) 0.0 Immature Gran # (Auto) 0.01 H Absolute Nucleated RBC 0.00 Immature Gran % 0 Nucleated RBC % 0 Sodium 140 Potassium 3.7 Chloride 108 H Carbon Dioxide 24.7 Anion Gap 7 BUN 8 L Creatinine 0.8 Estim Creat Clear Calc 86.1 eGFR > 60 BUN/Creatinine Ratio 10 L Glucose 90 Calculated Osmolality 277 Calcium 8.6 Corrected Calcium 8.6 Phosphorus 3.0 Magnesium 1.9 Total Bilirubin 0.8 AST 20 ALT 21 Alkaline Phosphatase 67 Total Protein 6.5 Albumin 4.1 D Globulin 2.4 Albumin/Globulin Ratio 1.7 Ur Collection Type Cancelled Urine Color Cancelled Urine Clarity Cancelled Urine pH Cancelled Ur Specific [place] Cancelled Urine Protein Cancelled Urine Glucose (UA) Cancelled Urine Ketones Cancelled Urine Blood Cancelled Urine Nitrite Cancelled Urine Bilirubin Cancelled Urine Urobilinogen (Auto) Cancelled Ur Leukocyte Esterase Cancelled Urine RBC Cancelled Urine WBC Cancelled Ur Squamous Epith Cells Cancelled Ur Transition Epith Cell Cancelled Ur Renal Epithelial Cell Cancelled Calcium Carbonate Cryst Cancelled Calcium Phosphate Cryst Cancelled Calcium Oxalate Crystal Cancelled Leucine Crystals Cancelled Cystine Crystals Cancelled Uric Acid Crystals Cancelled Triple Phos Crystals Cancelled Tyrosine Crystals Cancelled Amorphous Crystals Cancelled Urine Bacteria Cancelled Cellular Casts Cancelled Epithelial Casts Cancelled Fatty Casts Cancelled Hyaline Casts Cancelled Granular Casts Cancelled Waxy Casts Cancelled Broad Casts Cancelled RBC Casts Cancelled Urine Mucus Cancelled Urine Trichomonas Cancelled Ur Yeast w Hyphae Cancelled Urine Yeast (Budding) Cancelled Urine Sperm Cancelled Ur Oval Fat Bodies Cancelled T.pallidum Ab ([facility]) See Sep Rpt Quality Measures Quality Measures VTE prophylaxis Advance care planning discussed with:: other Assessment & Plan Assessment Current Active Medications: Generic Name Dose Route Start Last Admin Trade Name Freq PRN Reason Stop Dose Admin Acetaminophen 650 mg 03/27/25 17:56 Acetaminophen 325 Mg Tablet PO 04/26/25 17:55 Q6H PRN Fever >101.5 Acetaminophen 650 mg 03/27/25 17:56 Acetaminophen 325 Mg Tablet PO 04/26/25 17:55 Q6H PRN PAIN SCALE 1-3 (mild Atorvastatin Calcium 80 mg 03/27/25 21:00 03/28/25 20:35 Atorvastatin Calcium 20 Mg Tablet PO 04/26/25 20:59 80 mg HS YU Administration Docusate Sodium 100 mg 03/27/25 17:56 Docusate Sod 100 Mg Capsule PO 04/26/25 17:55 QDAY PRN CONSTIPATION Protocol Labetalol HCl 10 mg 03/27/25 18:04 Labetalol Inj 5 Mg/Ml Vial 20 Ml IVP 04/26/25 18:14 Q2H PRN SBP >180 Ondansetron HCl 4 mg 03/27/25 17:56 03/28/25 08:04 Ondansetron Inj 2 Mg/Ml Inj 2 Ml IV 04/26/25 17:55 4 mg Q6H PRN Administration NAUSEA OR VOMITING Protocol Pantoprazole Sodium 40 mg 03/29/25 09:00 03/29/25 09:11 Pantoprazole 40 Mg Tablet PO 04/28/25 08:59 40 mg QDAY YU Administration Plan #Acute stroke #Right MCA stroke #Hyperlipidemia #Afib 03/28/25: Patient was seen and examined by the bedside. Family members providing translation. Patient is still having aphasia. MRI showed 17 mm right temporal lesion, round in shape with hyperintensity of temporal gyri. 03/29/25 repeat MRI negative for ring enhancing lesions. Right temporal infarct. Echo with bubble study was negative for PFO, EF 60-65%. RPR negative, TP-PA incunclusive. HIV rapid antigen negative. Plan: -Telemetry Floor -Neuro Checks q4hr - DVT Prophylaxis -Head of Bed 30 Degrees -Euglycemia and Avoid Hyperthermia (PRN Acetaminophen) -Atorvastatin 80 mg qday -Start Eliquis 5 mg BID - physical therapy, speech therapy - BP control - hold testosterone #Mild polycytemia - management per primary team Plan of care discussed with attending Dr. Wheat. Lovely Aguilar MD, PGY 1. Attending Provider Attestation/Addendum I have seen and examined the patient at the bedside and agree with resident's findings, assessment and plan of care patient is stable for discharge on Eliquis and statin. Will decide about the lumbar puncture as an outpatient to evaluate for neurosyphilis as the RPR was reactive and Treponema pallidum immobilization test was inconclusive.
--- NOTE | 2025-03-29 11:33 | PC.SS ---
Walkers? The diagnosis creates mobility limitation that significantly impairs ability to participate in the patients activities of daily living either in their entirety, or in a reasonable time frame. Also the patient is able to safely use the walker and the patient?s mobility is sufficiently resolved with the use of the walker and cane has been ruled out.?
--- NOTE | 2025-03-29 11:46 | PC.SS ---
SS has faxed DME order for walker using [employer]. Stoke assessment is completed
[2025-03-29] MEDS: APIXABAN 2.5 MG TABLET 5 MG PO (14:03)
--- NOTE | 2025-03-29 16:16 | PC.SS ---
SS received call from [facility] who explained pt and were open to Acute Rehab and requesting more information. SS met with pt and to confirm d/c plan to home or acute rehab.Pt and refused Acute Rehab and their request is for pt to return home with HH for PT. Transfer nurse, Eri is aware. Augustin from PT is aware. SS also received phone call from Shantell from [facility] who states they will reach out to to deliver walker. SS provided Shantell with 's phone#.
--- NOTE | 2025-03-29 16:48 | ESDS_ITS ---
<Statement entered by Felix Trevizo MD - 03/29/25 17:18> Patient is seen and examined at bedside, patient was cleared from neurological standpoint for discharge. Cardiology consultation was ordered for Dr. Koenig secondary to new onset of A-fib. He recommended to continue the patient on Eliquis. Agree on the rest of the assessment and plan in this note. - Patient's plan and care discussed with my attending, Dr. Patricio Trevizo MD Internal Medicine PGY-2 Planned Discharge Date 03/29/25 DS: Providers Provider Date of admission: 03/27/25 17:54 Primary care physician: Jigar Hurley MD Admitting Provider: Ramos Gant MD Attending Provider on Admission: Ramos Gant MD Consults: 03/27/25 11:53 Consult to Neurology / Tele-Neurology Stat Comment: Consulting Provider: Kristine Baptiste 03/27/25 17:59 Referral Physical Therapy Stat Comment: Physician Instructions: 03/27/25 18:00 Consult to Neurology / Tele-Neurology Stat Comment: Dysphagia Consulting Provider: Michael Wheat 03/28/25 10:18 Consult to Cardiology Routine Comment: New onset afib Consulting Provider: Edvin Koenig Attending Provider on DC: Ramos Gant MD Discharging Provider: Ramos Gant MD DS: Diagnosis Problem List Completed Was Problem List Reviewed/Reconciled?: Yes Hospital Course Hospital Course Hospital course: 65-year-old male patient with past medical history of hypertension, hyperlipidemia who was admitted to [facility] on March 27, 2025 for acute ischemic stroke of the left temporal lobe. Patient's NIHSS score was 1 in the ED, and vitals had shown blood pressure 157/83, rate of 90, respiratory rate of 18, temperature 98.2. Teleneurologist was consulted who recommended admission including MRI CT scan and CTA. Head CT was negative for any hemorrhage or mass effect. CTA showed occlusion of the M1 segment of the right MCA. MRI had also shown 17 mm acute infarct of the right temporal lobe. Teleneurologist recommended to admit patient and to start him on aspirin and Plavix and lipitor and did not recommend thrombectomy at the time due to his N IHSS score being below 4. While admitted patient had atrial fibrillation in which she was rate controlled. Manual Control Auger Press Operator was consulted who had evaluated the patient and recommended to start patient on Eliquis. Neurology was consulted who had recommended further imaging including MRI with contrast which did not show any changes on the initial infarct. Neurology then recommended to start patient on just Eliquis and to stop the aspirin and Plavix. Patient was recommended to follow-up with neurology, cardiology both within 1 week. Patient was also recommended to follow-up with their primary care doctor. Inpatient PT had recommended SNF placement however patient refused and wanted home health PT. 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 Patient was recommended to follow-up outpatient in regards to this lab results and to also check TSH as this was low inpatient, likely subclinical hyperthyroidism. Patient was informed to take medicines as prescribed as well. I also held patient's testosterone as this was on the patient's med list and patient just had a stroke and will need to have a discussion with PCP in determining if he will resume it. Discharge Instructions: Follow-up with your PCP within 1 week Follow-up with a engineer intern within 1 week, Dr. Koenig Take your new medicine called Eliquis 5 mg twice a day as this is a blood thinner to prevent any future strokes Follow-up with the neurologist within 1 week as you just had a stroke Take medicines as prescribed Return to ER if symptoms worsen or return I am holding your testosterone, speak with PCP to resume this medicine as you just had a stroke Continue to work with home health PT You tested positive for an infection called syphillis, the confirmatory test came back inconclusive, follow up with your PCP for further testing Follow up with your TSH level outpatient with your PCP as this was low in the hospital Take your cholesterol medicine, Atorvastatin 80 mg as this a medicine after you had a stroke Problem list: #Acute ischemic stroke of the left temporal lobe #A-fib, new onset, rate controlled #Subclinical hyperthyrodisim #Positive syphilis test #History of hypertension #History of hyperlipidemia Discharge summary was reviewed with my attending Dr. Gant and my senior resident Dr. Santhosh Heaton, PGY-1 Time Spent with Patient Time attestation: Total time spent providing and/or coordinating discharge services: Time spent: Greater than 30 minutes Home Health Home Health Referral Orders: 03/28/25 13:25 Home Health Referral Routine Reason For Exam: CVA Home-Bound The patient must either because of illness or injury, need the aid of supportive devices such as crutches, canes, wheelchairs, and walkers; the use of special transportation; or the assistance of another person in order to leave their place of residence; OR have a condition such that leaving his or her home is medically contraindicated. In addition, the patient also meets the following criteria: patient is normally unable to leave the home and leaving home requires considerable taxing effort. Addendum to Home Health Certification Practitioner's Certification: I certify that the patient has been under my care in the hospital and the care of attending physician (see below). We had a vggm-or-epmf encounter on (see date below). My clinical findings indicate that the patient is home bound per the above criteria and the Home Health Services noted in these orders are medically necessary. The primary reason for the roxr-ga-qtry encounter is related to the fact that the patient requires home health services. Date Certifying Vclz-zu-Fyfy Physician Encounter: 03/27/25 Physician's Name who will Assume Oversight for Services: [facility] Mei Physician's Phone No.who will Assume Oversight for Service: TRUCK SALES MANAGER - Community Resources: No PT to Evaluate: Yes: PT/OT and ST PT to evaluate and provide a treatmnet plan to increase patient's mobility and strength. Wound Care: No IV Therapy: No RN Safety Evaluation: Yes RN to evaluate and create a plan of care that will produce positive outcomes. Palliative Treatment: No Palliative treatment and evaluate the need for hospice. Home Health Aide - Personal Care: No Home Health Aide to assist with any ADL's. Exam Vital Signs Temp Pulse Resp BP Pulse Ox O2 Del Method 98.1 F 96 18 136/83 H 98 Room Air 03/29/25 12:00 03/29/25 12:00 03/29/25 12:00 03/29/25 12:00 03/29/25 12:00 03/29/25 12:00 Narrative Exam General: AAOx3, NAD, Citizen Of [place]-speaking male HEENT: Moist mucous membranes, conjunctiva clear, EOMI, PERRLA, Cardiovascular: S1, S2, radial pulses +2 bilat, irregularly irregular Pulmonary: CTAB bilat no cough, no wheezing GI: No tenderness to light or deep palpitation, no guarding, rigidity, rebound tenderness or distension Extremities: No presence of trace or pitting edema in lower extremities bilaterally, dorsalis pedis pulses +2 bilaterally Neuro: AAOx3, patient has some difficulty with following directions, he is slow to respond with some of his responses and actions, some possible facial droop that is residual on the left side, patient's motor strength in upper and lower extremities appears to be intact 5 out of 5, may be some response delay, also sensation appears to be intact in upper and lower extremities, patient able to discern sensation, able to smile, and move tongue, no apparent deficits with reflexes Discharge Plan Plan Patient Disposition: Home w/HOME HEALTH Patient condition on transfer: Stable Care Plan Goals: Discharge Instructions: Follow-up with your PCP within 1 week Follow-up with a engineer intern within 1 week, Dr. Koenig Take your new medicine called Eliquis 5 mg twice a day as this is a blood thinner to prevent any future strokes Follow-up with the neurologist within 1 week as you just had a stroke Take medicines as prescribed Return to ER if symptoms worsen or return I am holding your testosterone, speak with PCP to resume this medicine as you just had a stroke Continue to work with home health PT You tested positive for an infection called syphillis, the confirmatory test came back inconclusive, follow up with your PCP for further testing Follow up with your TSH level outpatient with your PCP as this was low in the hospital Take your cholesterol medicine, Atorvastatin 80 mg as this a medicine after you had a stroke Instrucciones para el mely: Visite cartagena m?dico de cabecera dentro de margo semana. Visite cartagena cardi?logo de cabecera dentro de margo semana, Dr. Koenig. [place] cartagena nuevo medicamento llamado Eliquis 5 mg dos veces al d?a, ya que es un anticoagulante para prevenir futuros accidentes cerebrovasculares. Visite cartagena neur?logo de cabecera dentro de margo semana, ya que acaba de sufrir un accidente cerebrovascular. [place] los medicamentos seg?n lo prescrito. Regrese a urgencias si los s?ntomas empeoran o regresan. Estoy suspendiendo cartagena testosterona; hable con cartagena m?dico de cabecera para reanudar abdirizak medicamento, ya que acaba de sufrir un accidente cerebrovascular. Contin?e trabajando con el fisioterapeuta de atenci?n domiciliaria. Saurav positivo para margo infecci?n llamada s?filis, la prueba de confirmaci?n no fue concluyente; mitch un seguimiento con cartagena m?dico de cabecera para realizar m?s pruebas. Realice un seguimiento con margo prueba de laboratorio de TSH con cartagena m?dico de cabecera, ya que abdirizak nivel era bajo en el hospital [place] cartagena medicamento para el colesterol, Atorvastatina 80 mg, ya que es un medicamento que se bill despu?s de kam sufrido un derrame cerebral. Prescriptions/Referrals Prescriptions/Med Rec: New Eliquis 5 mg tablet 5 mg PO BID 30 Days Qty: 60 2RF Rx Instructions: Take one tablet by mouth twice a day everyday atorvastatin 80 mg tablet 80 mg PO QDAY Qty: 30 3RF Continued losartan 100 mg tablet 100 mg PO QDAY amlodipine [Norvasc] 10 mg tablet 10 mg PO QDAY ascorbic acid (vitamin C) [C-1000] 1,000 mg tablet 1 g PO QDAY Held testosterone 100 mg/mL suspension 200 mg .Route .[id number] Hold Instructions: Resume upon decision with PCP in the setting of recent stroke Rx Instructions: im shot given once every 2 weeks Discontinued aspirin 81 mg tablet 81 mg PO QDAY Referrals: Jigar Hurley([facility])MD [Primary Care Provider] - Patient/Caregiver Discharge Instructions Discharge Activity: as per physical therapy Other Discharge Activity Instructions:: Follow-up with your PCP within 1 week Follow-up with a engineer intern within 1 week, Dr. Koenig Take your new medicine called Eliquis 5 mg twice a day as this is a blood thinner to prevent any future strokes Follow-up with the neurologist within 1 week as you just had a stroke Take medicines as prescribed Return to ER if symptoms worsen or return I am holding your testosterone, speak with PCP to resume this medicine as you just had a stroke Continue to work with home health PT You tested positive for an infection called syphillis, the confirmatory test came back inconclusive, follow up with your PCP for further testing Follow up with your TSH level outpatient with your PCP as this was low in the hospital Take your cholesterol medicine, Atorvastatin 80 mg as this a medicine after you had a stroke Education Materials: Stroke: Taking Medicines, Stroke: Self-Care, ED Atrial Fibrillation, ED Stroke, Completed, Tests to Diagnose a Stroke Print Language: Irish Stand Alone Forms: Mimi Award Info., Patient Portal Info Letter Discharge Order Discharge Orders: Discharge (Routine); Ordered 03/29/25 Ordered By: Jagdish Heaton Quality Discharge Quality Measures VTE prophylaxis (Eliquis) Attestestation Attestation I attest that I was physically present for the evaluation, physical examination, lab and imaging review of the patient with the residents. I discussed the case with the residents and agree with the findings and plans of care as documented above. Ramos Gant MD
--- NOTE | 2025-03-30 10:27 | PC.CC ---
Addendum entered by Black Joseph RN 03/30/25 15:15: [facility] start of care date 04/02/25 Addendum entered by Black Joseph RN 03/30/25 12:22: [facility] accepted pt. Booked [facility], pending insurance auth and start of care date Original Note: HH referral sent, awaiting response, pt has no preference
== END 2025-03-29 18:40 | disposition home health service (06) | DRG 66 ==
LOC: SERX 16:14 → SERHOLD 18:50 → S2NX 23:05
PROVIDERS: Student in an Organized Health Care Education/Training Program; Admitting Provider Student in an Organized Health Care Education/Training Program; Emergency Provider Emergency Medicine; PCP Family Medicine; Visit Provider Student in an Organized Health Care Education/Training Program
DX: I63.511 Cerebral infarction due to unspecified occlusion or stenosis of right middle cerebral artery (principal); A53.0 Latent syphilis, unspecified as early or late; I10 Essential (primary) hypertension; E78.5 Hyperlipidemia, unspecified; R29.701 NIHSS score 1; R47.01 Aphasia; I48.91 Unspecified atrial fibrillation
CPT/HCPCS: 36415; 70450; 70496; 70498; 70551; 70552; 80048; 80053; 80061; 81001; 82140; 82607; 83036; 83735; 83880; 84100; 84439; 84443; 84484; 85025; 85610; 85652; 85730; 86140; 86703; 86780; 92610; 93005; 93306; 97162; 99291; A4649; A9579; J2405; J2470; J3475; J7030; Q9967; A9270

== ENCOUNTER 2025-04-04 13:44 | Inpatient (IN) | payer MEDICARE, MEDICAID, SELFPAY ==
[2025-04-04] VITALS (11 sets, daily range): BP systolic 98–148; BP diastolic 60–98; PULSE 83–101; RESP 12–19; TEMP 36.6–36.8; O2SAT 89–98; BMI 24.5
--- NOTE | 2025-04-04 13:53 | EKG_ITS ---
[facility] Test Date: 2025-04-04 Pat Name: LUCIA PELAYO Department: Room: - Gender: Male Page Designer: : 1960 Requested By: Viola Ha Order Number: [id number] Reading MD: Viola Ha Measurements Intervals [place] Rate: 82 P: NE: QRS: 38 QRSD: 105 T: 70 QT: 348 QTc: 407 Interpretive Statements ATRIAL FIBRILLATION ABNORMAL RHYTHM ECG Compared to ECG 03/27/2025 12:22:34 Intraventricular conduction delay no longer present /store/S0/[id number]/ecg/[id number].pdf
--- NOTE | 2025-04-04 14:01 | XR_ITS ---
Examination: CT brain head without contrast. 2-D sagittal coronal reconstructions Date and time of exam:April 04, 2025 1435 hours Comparison March 27, 2025 INDICATIONS: Stroke alert March 27, 2025, onset focal neurologic deficit, altered mental status today CTDI: vol (mGy):48.4 DLP: (mGycm):963 Technique: Multiple CT axial sections of the brain have been obtained, 5 mm slice thickness. Contrast has not been administered. 2-D sagittal, coronal reconstructions have been obtained Low dose protocols were performed. One or more of the following dose reduction techniques were used; automated exposure control, adjustment of the mA and/or KV according to patient size, use of iterative reconstruction technique. Findings: No significant ventricular enlargement. Infarct in the right posterior temporal right parietal lobe, noted on the MR brain study 03/29/2025 Intra-axial or extra-axial hemorrhage density is not seen. No mass effect or midline shift Basal cisterns are not remarkable. Fourth ventricle is midline. Cranial vault intact. Impression: Infarct in the right middle cerebral artery distribution, noted on the brain MRI March 29, 2025, without hemorrhagic transformation
--- NOTE | 2025-04-04 14:10 | PC.NURSE ---
Upon ems arrival, Kathe BAKING FACTORY WORKER assessed patient and no stroke alert called.
[2025-04-04 15:10] LABS: Basophils # (Auto) 0.1 Thou/mm3 (0.0-0.2); Basophils % (Auto) 1 % (0-2.5); Eosinophils # (Auto) 0.1 Thou/mm3 (0.0-0.5); Eosinophils % (Auto) 1 % (0-10); Hematocrit 50.6 % (41.0-53.0); Hemoglobin 17.3 g/dL (13.5-16.0); Immature Granulocytes % (Auto) 0 % (0-0); Immature Granulocytes Auto 0.01 Thou/mm3 (0.00-0.00); Lymphocytes # (Auto) 1.2 Thou/mm3 (1.0-4.8); Lymphocytes % (Auto) 15 % (10-50); Mean Corpuscular HGB Conc 34.2 g/dl (31.0-37.0); Mean Corpuscular Hemoglobin 28.9 pg (25.0-35.0); Mean Corpuscular Volume 85 fL (80-100); Monocytes # (Auto) 0.7 Thou/mm3 (0.0-0.8); Monocytes % (Auto) 8 % (0-12); Neutrophils # (Auto) 6.1 Thou/mm3 (1.8-7.7); Neutrophils % (Auto) 75 % (37-80); Nucleated Red Blood Cell % 0 /100 WBC (0); Platelet Count 233 Thou/mm3 (140-440); RDW Standard Deviation 39.4 fL (35.1-43.9); Red Blood Count 5.98 Miln/mm3 (4.50-5.90); White Blood Count 8.2 Thou/mm3 (3.8-10.6)
[2025-04-04 15:25] LABS: Collection Type, Urine Clean Catch
[2025-04-04 15:28] LABS: B-Type Natriuretic Peptide 65 pg/mL (0-100)
[2025-04-04 15:32] LABS: Alanine Aminotransferase 32 U/L (10-49); Albumin, Serum 4.5 gm/dL (3.4-4.8); Albumin/Globulin Ratio 1.6 (1.2-2.2); Alkaline Phosphatase 87 U/L (46-116); Anion Gap 9 (7-16); Aspartate Amino Transferase 22 U/L (0-34); BUN/Creatinine Ratio 12 Ratio (12-20); Bilirubin,Total 0.8 mg/dL (0.3-1.2); Blood Urea Nitrogen 12 mg/dL (9-23); Calcium 8.7 mg/dL (8.3-10.6); Calcium (Corrected) 8.7 mg/dL (8.5-10.1); Carbon Dioxide 25.5 mMol/L (20.0-31.0); Chloride 107 mMol/L (98-107); Estimated Creatinine Clearance 78.4 mL/min (>60); Globulin 2.8 gm/dL (2.3-3.5); Glucose 93 mg/dL (74-106); Magnesium 2.2 mg/dL (1.6-2.6); Osmolality,Calculated 280 (275-295); Potassium 4.1 mMol/L (3.4-5.1); Sodium 141 mMol/L (136-145); Total Protein 7.3 gm/dL (5.7-8.2); Troponin I < 0.002 ng/mL (0.0-0.045); eGFR > 60 See Note
[2025-04-04 15:33] LABS: INR 1.1 (0.9-1.3); Partial Thromboplastin Time 27.1 Seconds (22.0-36.0); Prothrombin Time 11.6 Seconds (9.0-12.2)
[2025-04-04 15:42] LABS: Bacteria,Urine Rare; Bilirubin,Urine Negative (Negative); Blood,Urine Negative (Negative); Clarity,Urine Clear (Clear/Hazy); Color,Urine Yellow (Lt Yel-Yel); Glucose, Urine Negative (Negative); Ketones,Urine Negative (Negative); Leukocyte Esterase,Urine Negative (Negative); Nitrite,Urine Negative (Negative); PH,Urine 6.5 (5.0-7.0); Protein,Urine Negative (Neg - Trace); RBC,Urine 2 /hpf (0-3); Specific Gravity,Urine 1.019 (1.001-1.035); Squamous Epithelial Cell,Urine 2 /hpf (0-5); Urobilinogen,Urine Negative mg/dL (0.0-1.0); WBC,Urine 1 /hpf (0-5)
[2025-04-04 15:52] LABS: Amphetamine/Methamp Scrn,U Negative (Negative); Barbiturate Screen,Urine Negative (Negative); Benzodiazepines Screen,Urine Negative (Negative); Benzoylecgonine Screen, Ur Negative (Negative); Fentanyl Screen,Urine Negative (Negative); Opiate Screen,Urine Negative (Negative); THC Screen,Urine Negative (Negative)
--- NOTE | 2025-04-04 19:48 | PC.NURSE ---
report recieved from Adrian ANDRE. pt appears in no distress. family at bedside Pt is A&Ox 4. PERRLA, face is symmetrical. Hand vinyl installer are strong and equal. Speach is normal. family at bedside.
--- NOTE | 2025-04-04 20:14 | PD.EDNEURO ---
Neuro Symptoms Deficit-RME/HPI General Chief Complaint: Neuro Symptoms/Deficit Stated Complaint: POSSIBLE STROKE Time Seen by Provider: 04/04/25 13:52 Arrival date/time: 04/04/25 13:44 65-year-old male presents to the ED via EMS with a complaint of altered mental status, expressive aphasia, and difficulty walking. Family states he had a stroke last week and was recently discharged home. He had been doing much better and then today noticed him to have increased confusion, difficulties speaking as well as difficulty walking and difficulty following commands. Last known well time 1300 today. Mode of arrival: EMS Limitations: altered mental status Related Data Home Medications ?Medication ?Instructions ?Recorded ?Confirmed amlodipine 10 mg tablet (Norvasc) 10 mg PO QDAY 03/28/25 03/28/25 ascorbic acid (vitamin C) 1,000 mg 1 g PO QDAY 03/28/25 03/28/25 tablet (C-1000) losartan 100 mg tablet 100 mg PO QDAY 03/28/25 03/28/25 testosterone 100 mg/mL 200 mg .Route .[id number] 03/28/25 03/28/25 intramuscular suspension Held on 03/29/25. Instructions: Resume upon decision with PCP in the setting of recent stroke Previous Rx's ?Medication ?Instructions ?Recorded apixaban 5 mg tablet (Eliquis) 5 mg PO BID 1 month #60 tabs 03/29/25 atorvastatin 80 mg tablet 80 mg PO QDAY #30 tabs 03/29/25 Allergies Allergy/AdvReac Type Severity Reaction Status Date / Time No Known Allergies Allergy Verified 03/27/25 11:43 Review of Systems Review of Systems Systems Reviewed: All systems reviewed, normal except as documented Past Medical History Social History SMOKING STATUS: Never smoker SUBSTANCE USE: does not use ALCOHOL: Never Past Medical History Comments PMH COMMENT: History of hypertension, hyperlipidemia ED Exam Narrative Physical exam: Alert 65-year-old male, alert but unable to answer questions or follow simple commands, left-sided neglect. He is alert with altered mental status. Head is atraumatic and normocephalic. PERRL, unable to perform EOMs due to confusion. Lung sounds are clear, equal chest rise and fall, no respiratory distress noted. Cardiovascular regular rate with irregularly irregular rhythm. Abdomen is soft and nontender. He is unable to perform or understand sensory or motor exams. He is also unable to perform neuro exam including EOMs, cranial nerves, sensory or motor tests, heel-corea, pronator or Romberg. General Limitations: Present altered mental status General appearance: Present alert; Absent in distress Head Head exam: Present atraumatic and normocephalic Eye Eye exam: Present normal appearance and PERRL; Absent EOMI Chest Chest inspection: Present normal inspection Respiratory Respiratory exam: Present normal lung sounds bilaterally; Absent respiratory distress Cardiovascular Cardiovascular exam: Present regular rate, irregular rhythm and normal heart sounds Abdominal Exam Abdominal exam: Present soft; Absent distention Neurological Exam Neurological exam: Present alert, CN II-XII intact (Unable to follow simple commands for evaluation.), normal gait (Not tested) and motor sensory deficit (Unable to follow simple commands for motor or sensory exam.); Absent oriented X3 Expanded Neurological Exam Speech: Present total aphasia Upper motor neuron exam: Abnormal Left: vanna neglect Coma scale eye opening: spontaneous Coma scale motor response: localizes to pain Coma scale verbal response: confused Coma scale total: 13 Psychiatric Psychiatric exam: Present flat affect Skin Skin exam: Present warm, dry, intact and normal color Course Course Course Narrative: 04/04/25 13:44 65-year-old male presents to the ED via EMS with a complaint of altered mental status, expressive aphasia, and difficulty walking. Family states he had a stroke last week and was recently discharged home. He had been doing much better and then today noticed him to have increased confusion, difficulties speaking as well as difficulty walking and difficulty following commands. Last known well time 1300 today. Alert 65-year-old male, alert but unable to answer questions or follow simple commands, left-sided neglect. He is alert with altered mental status. Head is atraumatic and normocephalic. PERRL, unable to perform EOMs due to confusion. Lung sounds are clear, equal chest rise and fall, no respiratory distress noted. Cardiovascular regular rate with irregularly irregular rhythm. Abdomen is soft and nontender. He is unable to perform or understand sensory or motor exams. He is also unable to perform neuro exam including EOMs, cranial nerves, sensory or motor tests, heel-corea, pronator or Romberg. Initial blood pressure 129/75, P90, RR 16, T97.9, O2 sat 98% on room air. Discussed initial exam with attending physician, does not feel it necessary to call a stroke alert on initial presentation due to patient's recent stroke last week Labs reveal normal white count of 8.2, elevated hemoglobin of 17.3 coags are normal, comprehensive metabolic panel is normal, troponin is less than 0.002, and BNP is normal at 65. Urinalysis and drug screen is normal. Head CT per Dr. Foster: Findings: No significant ventricular enlargement. Infarct in the right posterior temporal right parietal lobe, noted on the MR brain study 03/29/2025. Intra-axial or extra-axial hemorrhage density is not seen. No mass effect or midline shift. Basal cisterns are not remarkable. Fourth ventricle is midline. Cranial vault intact. Impression: Infarct in the right middle cerebral artery distribution, noted on the brain MRI March 29, 2025, without hemorrhagic transformation. Quality Measures Suspected type of Stroke: Acute Ischemic Last known well (date): 04/04/25 Last known well (time): 13:00 Tenecteplase given: Reason(s) TPA not given: Use of NOAC (eliquis, xarelto, or pradaxa) not given stroke Orders Category Date Time Status Bedside Blood Glucose NOW Care 04/04/25 13:[address] Screening NOW Care 04/04/25 21:28 Active Ski Instructor NOW Care 04/04/25 13:53 Active Continuous Pulse Oximetry NOW Care 04/04/25 13:53 Completed EKG (ED ONLY) *Do not use* NOW Care 04/04/25 13:53 Completed In and Out Catheter NEEDED Care 04/04/25 13:53 Active Insert IV NOW Care 04/04/25 13:53 Active Miscellaneous Nursing Order NOW Care 04/04/25 21:12 Active NIH Stroke Scale now Care 04/04/25 13:53 Active NPO NOW Care 04/04/25 13:53 Active Neuro Check Q15MIN Care 04/04/25 13:53 Active Nurse Swallow Screen x1 Care 04/04/25 13:53 Active Consult to Neurology / Tele-Neurology Routine Cons 04/04/25 13:[address] angio carotid w head w Stat Exams 04/04/25 21:[address] head/brain wo con Stat Exams 04/04/25 14:01 Completed EKG (ED Only) Stat Exams 04/04/25 13:53 Draft MR brain wwo MRA brn wo lopez w Stat Exams 04/04/25 Ordered B-Type Natriuretic Peptide Stat Lab 04/04/25 15:03 Completed CBC Stat Lab 04/04/25 15:03 Completed Comprehensive Metabolic Panel Stat Lab 04/04/25 15:03 Completed Drug Screen,Urine Stat Lab 04/04/25 15:14 Completed Magnesium Stat Lab 04/04/25 15:03 Completed Partial Thromboplastin Time Stat Lab 04/04/25 15:03 Completed Prothrombin Time with INR Stat Lab 04/04/25 15:03 Completed Troponin I Stat Lab 04/04/25 15:03 Completed Urinalysis Stat Lab 04/04/25 15:14 Completed Urine Culture Stat Lab 04/04/25 13:53 Received Aspirin Med 04/04/25 21:15 Discontinued 325 mg PO X1 ONE Oxygen Delivery NOW RT 04/04/25 13:53 Active Vital Signs Vital signs: Vital Signs Temperature 97.9 F 04/04/25 13:57 Pulse Rate 90 04/04/25 13:57 Respiratory Rate 16 04/04/25 13:57 Blood Pressure 129/75 04/04/25 13:57 Pulse Oximetry (%) 98 04/04/25 13:57 Oxygen Delivery Method Room Air 04/04/25 13:57 Neuro Symptoms / Deficit MDM Narrative MDM Narrative:: 65-year-old male presents to the ED via EMS with a complaint of altered mental status, expressive aphasia, and difficulty walking. Family states he had a stroke last week and was recently discharged home. He had been doing much better and then today noticed him to have increased confusion, difficulties speaking as well as difficulty walking and difficulty following commands. Last known well time 1300 today. Alert 65-year-old male, alert but unable to answer questions or follow simple commands, left-sided neglect. He is alert with altered mental status. Head is atraumatic and normocephalic. PERRL, unable to perform EOMs due to confusion. Lung sounds are clear, equal chest rise and fall, no respiratory distress noted. Cardiovascular regular rate with irregularly irregular rhythm. Abdomen is soft and nontender. He is unable to perform or understand sensory or motor exams. He is also unable to perform neuro exam including EOMs, cranial nerves, sensory or motor tests, heel-corea, pronator or Romberg. Initial blood pressure 129/75, P90, RR 16, T97.9, O2 sat 98% on room air. Discussed initial exam with attending physician, does not feel it necessary to call a stroke alert on initial presentation due to patient's recent stroke last week Labs reveal normal white count of 8.2, elevated hemoglobin of 17.3 coags are normal, comprehensive metabolic panel is normal, troponin is less than 0.002, and BNP is normal at 65. Urinalysis and drug screen is normal. Head CT per Dr. Foster: Findings: No significant ventricular enlargement. Infarct in the right posterior temporal right parietal lobe, noted on the MR brain study 03/29/2025. Intra-axial or extra-axial hemorrhage density is not seen. No mass effect or midline shift. Basal cisterns are not remarkable. Fourth ventricle is midline. Cranial vault intact. Impression: Infarct in the right middle cerebral artery distribution, noted on the brain MRI March 29, 2025, without hemorrhagic transformation. MRI/MRA ordered for further evaluation. Contacted Admitting physician. He would like a stroke alert initiated to enable faster response by MRI. Unable to have MRI/MRA until tomorrow. TeleNeuro Exam: On my exam patient has no gaze preference, he is awake/alert, follows 1-step commands, able to participate in exam, mild ataxia LUE and LLE, he has left sided neglect as demonstrated by sensory extinction with simultaneous double stimulation.? ?ED PA notes that on arrival he had severe left sided neglect, could not understand commands even with his daughter translating, and that he has now improved significantly.? ?On my review of CT, patient now has a much larger R MCA territory infarct than was present on MRI brain last admission.? ?I suspect patient has fluctuating symptoms due to relative hypoperfusion of collaterals of previously seen occluded R MCA? ?Presentation consistent with new larger acute R MCA infarct with fluctuating symptoms. Patient data External records reviewed:: [facility] previous records Clinical information provided by:: EMS and family Social determinants that could affect healthcare access:: none Patient has the following chronic illnesses:: Atrial fibrillation, right temporal lobe infarction How is presenting disease/condition affected by chronic disease/condition?: caused by Evaluation data The following diagnostics were reviewed and interpreted by me:: lab results and radiology exam(s) Lab and/or radiology exams considered but not ordered:: N/A Interpretation Summary: Labs reveal normal white count of 8.2, elevated hemoglobin of 17.3 coags are normal, comprehensive metabolic panel is normal, troponin is less than 0.002, and BNP is normal at 65. Urinalysis and drug screen is normal. Head CT per Dr. Foster: Findings: No significant ventricular enlargement. Infarct in the right posterior temporal right parietal lobe, noted on the MR brain study 03/29/2025. Intra-axial or extra-axial hemorrhage density is not seen. No mass effect or midline shift. Basal cisterns are not remarkable. Fourth ventricle is midline. Cranial vault intact. Impression: Infarct in the right middle cerebral artery distribution, noted on the brain MRI March 29, 2025, without hemorrhagic transformation. Medications / Prescriptions Medications or Prescriptions considered but not ordered:: N/A Medication administrations:: Medication Administration History Discontinued Medications Aspirin (Aspirin 325 Mg Tablet) 325 mg PO X1 ONE Stop: 04/04/25 21:16 Last Admin: 04/04/25 21:51 Dose: 325 mg Documented By: MADISYN Aspirin 325 mg p.o. Consultations Consultation(s) initiated? (list below): Yes Consultation #1 (Physician, Specialty, Details): Teleneurologist: Reviewed new CT films. She feels the right sided infarction is much larger than on previous CT or MRI or 03/29/25, as well as on previous CT read from today. Recommendations include head of bed flat, hold Eliquis until MRI is complete tomorrow, give aspirin 325 mg if he passes bedside swallow exam otherwise give NH, permissive hypertension up to 180 systolic, hold all hypertensive medications. Impression: ?65M with PMHx HTN, HLD, afib on Eliquis recent stroke presents with abrupt onset aphasia, nausea, unsteady gait. Patient is Urdu-speaking. and daughter and son are at bedside. His tells me he was recovering well from his stroke, then today at 1pm she sat him down and left for a moment, when she came back he was unable to speak, then was nauseous, and his face looked like it was being pulled to the right. She notes with his stroke last Wednesday he had trouble with his speech and would drop things with his left hand. He is on Eliquis, last dose this morning at 0900. ?She notes he is on megace and now seems more depressed, anxious. ?MR brain from 03/29 shows 17mm acute R temporal lobe infarct. CTA showed occlusion of R M1 segment with decreased filling of R MCA trifurcation vessels. He had NIHSS =1 in ED on 03/28. Subsequent note mention aphasia. ? ?On my exam patient has no gaze preference, he is awake/alert, follows 1-step commands, able to participate in exam, mild ataxia LUE and LLE, he has left sided neglect as demonstrated by sensory extinction with simultaneous double stimulation. ? ?ED PA notes that on arrival he had severe left sided neglect, could not understand commands even with his daughter translating, and that he has now improved significantly. ? ?On my review of CT, patient now has a much larger R MCA territory infarct than was present on MRI brain last admission. ? ?I suspect patient has fluctuating symptoms due to relative hypoperfusion of collaterals of previously seen occluded R MCA ? ?Presentation consistent with new larger acute R MCA infarct with fluctuating symptoms. ? Our recommendations are outlined below. Recommendations: ? Stroke/Telemetry Floor ? Neuro Checks (Q4) ? Bedside Swallow Eval ? DVT Prophylaxis ? IV Fluids, Normal Saline ? Head of Bed 30 Degrees ? Euglycemia and Avoid Hyperthermia (PRN Acetaminophen) ?HOB flat; ?Hold Eliquis - reconsult Neuro after MR brain resulted to discuss when it can safely be resumed; ?ASA 325mg PO if passes bedside swallow otherwise ASA 300mg NH; ?MRI brain w/o, this can take place tomorrow; ?Needs repeat CTA head/neck; ?Permissive HTN up 180/100; ?PT/OT/ST; Diagnosis Neuro Differential Diagnosis: subarachnoid hemorrhage, cerebrovascular accident and transient cerebral ischemia Most likely diagnosis given after review of the tests above:: CVA Admission Indicated Admission indicated?: indicated Explain why admission is indicated or not indicated:: Worsening Right MCA Infarct Admission Request Was there a request for admission?: Yes Admission Attestation Admission request attestation: Discussed case with [] from Hospitalist service regarding admission. Discussed patients ED course, exam findings, labs, and radiology results. The Hospitalist [agrees,declines] to accept the patient for admission. Disposition Plan Disposition Plan: Admit Discharge Plan Plan Patient Disposition: Admit Acute Care w/in Hospital Discharge Disposition comment: Stable, mildly Improved Prescriptions/Referrals Prescriptions/Med Rec: No Action losartan 100 mg tablet 100 mg PO QDAY amlodipine [Norvasc] 10 mg tablet 10 mg PO QDAY ascorbic acid (vitamin C) [C-1000] 1,000 mg tablet 1 g PO QDAY testosterone 100 mg/mL suspension 200 mg .Route .[id number] Rx Instructions: im shot given once every 2 weeks Eliquis 5 mg tablet 5 mg PO BID 30 Days Qty: 60 2RF Rx Instructions: Take one tablet by mouth twice a day everyday atorvastatin 80 mg tablet 80 mg PO QDAY Qty: 30 3RF Referrals: Jason Gonzalez [Primary Care Provider] - In 1 week Problem List Clinical Impression: Right temporal lobe infarction, Afib, AMS (altered mental status) Patient/Caregiver Discharge Instructions Print Language: Urdu Stand Alone Forms: Mimi Award Info., Patient Portal Info Letter
--- NOTE | 2025-04-04 20:34 | PC.NURSE ---
Case Consult 04/04/2025 20:34:17 [facility] Case # [id number] has been created.
--- NOTE | 2025-04-04 20:56 | PC.NURSE ---
NATACHA BLAIR CONSULTED WITH PT.
--- NOTE | 2025-04-04 21:19 | ESCONSULT_ITS ---
Tele Neuro Consultation Consultation Date 04/04/25 Most Recent Vital Signs Last Vital Signs Temp 98.2 F 04/04/25 18:00 Pulse 83 04/04/25 21:00 Resp 17 04/04/25 21:00 BP 139/98 H 04/04/25 21:00 Pulse Ox 96 04/04/25 21:00 O2 Del Method Room Air 04/04/25 18:00 Laboratory-Coagulation Panel PT 11.6 Seconds (9.0-12.2) 04/04/25 15:03 INR 1.1 (0.9-1.3) 04/04/25 15:03 APTT 27.1 Seconds (22.0-36.0) 04/04/25 15:03 Consultation Narrative [facility] Tele[facility]urology Consult [facility] Patient Name:???Lawrence Betancur Date of :???1960 Identification Number:??? Date of Service:???04/04/2025 20:34:17 Diagnosis:?R29.818 - Transient neurological symptoms Impression: ?65M with PMHx HTN, HLD, afib on Eliquis recent stroke presents with abrupt onset aphasia, nausea, unsteady gait. Patient is Indonesian-speaking. and daughter and son are at bedside. His tells me he was recovering well from his stroke, then today at 1pm she sat him down and left for a moment, when she came back he was unable to speak, then was nauseous, and his face looked like it was being pulled to the right. She notes with his stroke last Wednesday he had trouble with his speech and would drop things with his left hand. He is on Eliquis, last dose this morning at 0900. ?She notes he is on megace and now seems more depressed, anxious. ?MR brain from 03/29 shows 17mm acute R temporal lobe infarct. CTA showed occlusion of R M1 segment with decreased filling of R MCA trifurcation vessels. He had NIHSS =1 in ED on 03/28. Subsequent note mention aphasia. ? ?On my exam patient has no gaze preference, he is awake/alert, follows 1-step commands, able to participate in exam, mild ataxia LUE and LLE, he has left sided neglect as demonstrated by sensory extinction with simultaneous double stimulation. ? ?ED PA notes that on arrival he had severe left sided neglect, could not understand commands even with his daughter translating, and that he has now improved significantly. ? ?On my review of CT, patient now has a much larger R MCA territory infarct than was present on MRI brain last admission. ? ?I suspect patient has fluctuating symptoms due to relative hypoperfusion of collaterals of previously seen occluded R MCA ? ?Presentation consistent with new larger acute R MCA infarct with fluctuating symptoms. ? Our recommendations are outlined below. Recommendations: ? Stroke/Telemetry Floor ? Neuro Checks (Q4) ? Bedside Swallow Eval ? DVT Prophylaxis ? IV Fluids, Normal Saline ? Head of Bed 30 Degrees ? Euglycemia and Avoid Hyperthermia (PRN Acetaminophen) ?HOB flat; ?Hold Eliquis - reconsult Neuro after MR brain resulted to discuss when it can safely be resumed; ?ASA 325mg PO if passes bedside swallow otherwise ASA 300mg ME; ?MRI brain w/o, this can take place tomorrow; ?Needs repeat CTA head/neck; ?Permissive HTN up 180/100; ?PT/OT/ST; Sign Out: ? Discussed with Emergency Department Provider Advanced Imaging:Advanced Imaging Deferred because: large established infarct Metrics: Last Known Well: 04/04/2025 13:00:00 Dispatch Time: 04/04/2025 20:34:17 Arrival Time: 04/04/2025 13:44:00 Initial Response Time: 04/04/2025 20:39:07Symptoms: aphasia, face contorted, nausea. Initial patient interaction: 04/04/2025 20:39:52 NIHSS Assessment Completed: 04/04/2025 20:52:00Patient is not a candidate for Thrombolytic. Thrombolytic Medical Decision: 04/04/2025 20:52:30Patient was not deemed candidate for Thrombolytic because of following reasons: LKW outside 4.5 hr window. . Use of NOAC in last 48 hrs. . Significant head trauma or stroke in previous [address] Head: I personally reviewed all the CT images that were available to me and it showed: large right MCA infarct, more extensive than seen previously Primary Provider Notified of Diagnostic Impression and Management Plan on: 03/22 21:05:10 History of Present Illness:Patient is a 65 year old Male. Patient was brought by EMS for symptoms of aphasia, face contorted, nausea. 65M with PMHx HTN, HLD, afib on Eliquis recent stroke presents with abrupt onset aphasia, nausea, unsteady gait. Patient is Indonesian-speaking. and daughter and son are at bedside. His tells me he was recovering well from his stroke, then today at 1pm she sat him down and left for a moment, when she came back he was unable to speak, then was nauseous, and his face looked like it was being pulled to the right. She notes with his stroke last Wednesday he had trouble with his speech and would drop things with his left hand. He is on Eliquis, last dose this morning at 0900. She notes he is on megace and now seems more depressed, anxious. MR brain from 03/29 shows 17mm acute R temporal lobe infarct. CTA showed occlusion of R M1 segment with decreased filling of R MCA trifurcation vessels. He had NIHSS =1 in ED on 03/28. Subsequent note mention aphasia. ? Past Medical History: ?Atrial Fibrillation ?Stroke Medications: Anticoagulant use:??Yes?Eliquis No Antiplatelet use Reviewed EMR for current medications Allergies:? Reviewed Social History: Smoking: Former Family History: There is no family history of premature cerebrovascular disease pertinent to this consultation ROS : 14 Points Review of Systems was performed and was negative except mentioned in HPI. Past Surgical History: There Is No Surgical History Contributory To Today?s Visit ? Examination: BP(120/77),?Pulse(93), 1A: Level of Consciousness - Alert; keenly responsive?+ 0 1B: Ask Month and Age - Both Questions Right?+ 0 1C: Blink Eyes & Squeeze Hands - Performs Both Tasks?+ 0 2: Test Horizontal Extraocular Movements - Normal?+ 0 3: Test Visual Brice - Partial Hemianopia?+ 1 4: Test Facial Palsy (Use Grimace if Obtunded) - Normal symmetry?+ 0 5A: Test Left Arm Motor Drift - No Drift for 10 Seconds?+ 0 5B: Test Right Arm Motor Drift - No Drift for 10 Seconds?+ 0 6A: Test Left Leg Motor Drift - No Drift for 5 Seconds?+ 0 6B: Test Right Leg Motor Drift - No Drift for 5 Seconds?+ 0 7: Test Limb Ataxia (FNF/Heel-Sharma) - Ataxia in 2 Limbs?+ 2 8: Test Sensation - Normal; No sensory loss?+ 0 9: Test Language/Aphasia - Normal; No aphasia?+ 0 10: Test Dysarthria - Normal?+ 0 11: Test Extinction/Inattention - Visual/tactile/auditory/spatial/personal inattention?+ 1 NIHSS Score:?4 NIHSS Free Text :?LUE and LLE ataxia, L sided neglect Pre-Morbid Modified Wilfrid Scale:3 Points = Moderate disability; requiring some help, but able to walk without assistance Spoke with :?Viola MOLINA This consult was conducted in real time using interactive audio and video technology. Patient was informed of the technology being used for this visit and agreed to proceed. Patient located in hospital and provider located at home/office setting. Patient is being evaluated for possible acute neurologic impairment and high probability of imminent or life-threatening deterioration. I spent total of 35 minutes providing care to this patient, including time for face to face visit via telemedicine, review of medical records, imaging studies and discussion of findings with providers, the patient and/or family. Dr Yessica [place] [facility] For Inpatient follow-up with [facility] physician please call [facility] at . As we are not an outpatient service for any post hospital discharge needs please contact the hospital for assistance. If you have any questions for the [facility] physicians or need to reconsult for clinical or diagnostic changes please contact us via [facility] at .
--- NOTE | 2025-04-04 21:28 | XR_ITS ---
Examination: CTA carotids with intravenous contrast CTA brain, head with intravenous contrast. 2-D sagittal, coronal reconstructions. 3-D reconstructions. Exam date and time: April 04, 2025 2158 hours INDICATIONS: CVA one week ago, infarct in the right middle cerebral artery distribution on CT brain scan today CTDI: vol (mGy) 10.7 DLP: (mGycm) 411 Technique: Multiple CTA axial brain, head carotid images post intravenous contrast injection 75 cc, [id number]. 2-D sagittal, coronal reconstructions. 3-D reconstructions, 3-D post processing including vascular maximum intensity projection images. Low dose protocols were performed. One or more of the following dose reduction techniques were used; automated exposure control, adjustment of the mA and/or KV according to patient size, use of iterative reconstruction technique. Findings: No significant common carotid carotid bifurcation or internal carotid artery stenoses Codominant vertebral arteries with no critical stenoses Intracranial vertebral arteries artery posterior cerebral branches show no large vessel occlusions [place] alert internal carotid arteries are intact Occlusion M1 segment right middle cerebral artery with minimal filling of right middle cerebral artery trifurcation vessels M1 segment left middle cerebral artery and trifurcation vessels intact as well as anterior cerebral branches IMPRESSION: No significant neck arterial stenoses Occlusion M1 segment right middle cerebral artery with marked decreased filling of right middle cerebral artery trifurcation vessels
[2025-04-04] MEDS: Aspirin 325 MG TABLET PO (21:51)
[2025-04-05] VITALS (11 sets, daily range): BP systolic 108–142; BP diastolic 66–93; PULSE 67–111; RESP 12–98; TEMP 36.2–37.2; O2SAT 97–99; BMI 22.6
--- NOTE | 2025-04-05 | XR_ITS ---
Examinations: MRI Brain without intravenous contrast. MRA brain without intravenous contrast. MRA carotids without intravenous contrast 3-D vascular reconstructions Date and time of exam: 07/06/2025 0852 hours indications Slurred speech left-sided body weakness beginning today Technique: Multiple axial and sagittal images of the brain have been obtained MRA brain carotid images without contrast obtained, including 3-D postprocessing, vascular maximum intensity projection images Findings: [place] is not enlarged. The optic chiasm and infundibular stalk are not remarkable. Prepontine and interpeduncular cisterns are not enlarged. No localized enlargement of the medulla or mary. Fourth ventricle and cerebellar tonsils normal in position. Subacute hemorrhage is not seen. Fourth ventricle is midline. Mass in the cerebellopontine angle region is not evident. 7th and 8th nerve complexes exhibits symmetry. Globes are symmetrical with no retro-orbital mass. Increased white matter signal prominent in the right middle cerebral artery distribution Diffusion-weighted images demonstrate large foci restricted diffusion in the right temporal lobe right posterior parietal lobe Impression: Extensive acute infarcts in the right temporal lobe right parietal lobe
[2025-04-05 00:49] LABS: Cardiac Risk Estimate 3.1 RATIO (4.0-6.7); Cholesterol 137 mg/dL (132-200); HDL Cholesterol 44 mg/dL (40-60); LDL Cholesterol,Calculated 69 mg/dL (0-130); Triglycerides 121 mg/dL (30-150)
--- NOTE | 2025-04-05 01:39 | PD.RESHP ---
Documentation for date of: 04/05/25 HPI History of Present Illness Chief complaint: weakness History of present illness: Lawrence Betancur is 65 yr male with PMH of HTN, HLD, Afib on Eliquis who is presenting to ED by ambulance after experiencing weakness, slurred speech, and left side weakness. Symptoms started earlier this afternoon around 1 PM while at home. Patient was sitting outside when his noticed some slurred speech and left facial dropping. was also at bedside who said it appeared as if his face was getting pulled to the right. Patient tried getting up from his chair when he felt heaviness in b/L LE, also noticing that he was having slurred speech. At that time, family called 911. stated that patient had left hand weakness when paramedics were testing for strength. He was recently discharged from hospital on 03/29/25 after found to have Acute ischemic stroke of the left temporal lobe and new onset atrial fibrillation. Patient was started on Eliquis at that time. He as been getting PT at home. He denies checking his BP regulary since last discharge but is compliant with all medications. stated that these symptoms seemed worse than from last admission. He denies any headache, chest pain, SOB, blurry vision, or difficulty swallowing. In ED, BP stable 129/75, HR 90, RR 16, afebrile. CBC unremarkable. Glucose 93, Cr 1.0. UA negative, Utox negative. Stroke alert was called. CT head showed right MCA infarct (same location from last CT head), CTA head neck showed No significant neck arterial stenoses. Occlusion M1 segment right middle cerebral artery with marked decreased filling of right middle cerebral artery trifurcation vessels (also on previous imaging). EKG showed atrial fibrillation with rate 82, QTc 407. MRI head pending. Teleneuro was consulted. NIHSS score 4, patient not candidate for thrombolytic. Eliquis was held. He received aspirin 325 mg in the ED. Will admit patient for workup of acute CVA. PMH: As above PSH: none Social hx: Denied etoh, Denied smoking, Denied drug use. Allergies: No known drug allergies Meds: Amlodipine 10 mg, Eliquis 5 mg twice daily, atorvastatin 80 mg, losartan 100 mg Review of Systems Review of Systems Systems Reviewed: All systems reviewed, normal except as documented Exam Vital Signs Temp Pulse Resp BP Pulse Ox O2 Del Method 98.2 F 83 17 139/98 H 96 Room Air 04/04/25 18:00 04/04/25 21:00 04/04/25 21:00 04/04/25 21:00 04/04/25 21:00 04/04/25 18:00 Narrative Exam General: Male, well kempt, No acute distress, cooperative HEENT: NCAT, No JVD noted. Mucosa moist. Pupils are equal and reactive to light bilaterally Cardiovascular: Normal S1 and S2. Regular rate and rhythm. Respiratory: Lungs are clear to auscultation bilaterally. No wheezing or crackles heard. Abdomen: Soft, nontender, not distended, normal bowel sounds. Skin: Warm to touch, dry, no rashes noted Musculoskeletal: No gross injuries. Able to move all 4 extremities. No pitting edema Neuro: Alert and oriented x3. No focal neuro deficits. Strength 5 out of 5 upper and lower extremity. No loss in sensation in face or UE/LE. Psych: Normal affect and mood Results: Labs 04/04/25 15:03 04/04/25 15:03 Labs: Short CBC 04/04/25 Range/Units 15:03 WBC 8.2 (3.8-10.6) Thou/mm3 Hgb 17.3 H (13.5-16.0) g/dL Hct 50.6 (41.0-53.0) % Plt Count 233 (140-440) Thou/mm3 BMP 04/04/25 15:03 Sodium 141 Potassium 4.1 Chloride 107 Carbon Dioxide 25.5 BUN 12 Creatinine 1.0 Glucose 93 Calcium 8.7 Cardiac Enzymes 04/04/25 Range/Units 15:03 Troponin I < 0.002 (0.0-0.045) ng/mL Liver Function 04/04/25 Range/Units 15:03 Total Bilirubin 0.8 (0.3-1.2) mg/dL AST 22 (0-34) U/L ALT 32 (10-49) U/L Alkaline Phosphatase 87 (46-116) U/L Albumin 4.5 (3.4-4.8) gm/dL Urine 04/04/25 Range/Units 15:14 Urine Color Yellow (Lt Yel-Yel) Urine Clarity Clear (Clear/Hazy) Urine pH 6.5 (5.0-7.0) Ur Specific [place] 1.019 (1.001-1.035) Urine Protein Negative (Neg - Trace) Urine Glucose (UA) Negative (Negative) Quality Measures Quality Measures stroke Suspected type of Stroke: Acute Ischemic Last known well (date): 04/04/25 Last known well (time): 13:00 Tenecteplase given: Reason(s) Tenecteplase not given: Use of NOAC (eliquis, xarelto, or pradaxa) not given Rehab services: PT evaluation ordered VTE Prophylaxis: mechanical Antithrombotic by day 2:: ordered and contraindicated (describe) Statin ordered: >75 y/o moderate or high intensity dose Anticoagulation ordered for A-fib or flutter (current or hx): ordered Advance care planning discussed with:: patient Medications Home Medications and Allergies Home Medications ?Medication ?Instructions ?Recorded ?Confirmed ?Type amlodipine 10 mg tablet (Norvasc) 10 mg PO QDAY 03/28/25 04/05/25 History ascorbic acid (vitamin C) 1,000 mg 1 g PO QDAY 03/28/25 03/28/25 History tablet (C-1000) losartan 100 mg tablet 100 mg PO QDAY 03/28/25 04/05/25 History testosterone 100 mg/mL 200 mg .Route .[id number] 03/28/25 03/28/25 History intramuscular suspension Held on 03/29/25. Instructions: Resume upon decision with PCP in the setting of recent stroke megestrol 20 mg tablet 20 mg PO BID 04/05/25 04/05/25 History omeprazole 20 mg capsule,delayed 20 mg PO QDAY 04/05/25 04/05/25 History release Allergies Allergy/AdvReac Type Severity Reaction Status Date / Time ondansetron (From Zofran) Allergy Severe Anxiety, Verified 04/05/25 03:24 restlessness, depression megestrol (From Megace) Allergy Intermediate suicidal Verified 04/05/25 03:54 ideation, depression Visit Medications Acetaminophen (Acetaminophen 325 Mg Tablet) 650 mg PO Q6H PRN PRN Reason: Fever >100.3 or pain Stop: 05/04/25 23:57 Ondansetron HCl (Ondansetron Inj 2 Mg/Ml Inj 2 Ml) 4 mg IV Q6H PRN; Protocol PRN Reason: NAUSEA OR VOMITING Stop: 05/04/25 23:57 Sennosides (Senna Tablet) 1 tab PO QDAY PRN; Protocol PRN Reason: constipation Stop: 05/04/25 23:57 Discontinued Medications Aspirin (Aspirin 325 Mg Tablet) 325 mg PO X1 ONE Stop: 04/04/25 21:16 Last Admin: 04/04/25 21:51 Dose: 325 mg Assessment & Plan Plan Lawrence Betancur is 65 yr male with PMH of HTN, HLD, Afib on Eliquis who is presenting to ED by ambulance after experiencing weakness, slurred speech, and left side weakness. Patient was sitting outside when his noticed some slurred speech and left facial dropping. Will admit patient for workup of acute CVA. #r/o acute CVA #Hx right MCA stroke Symptoms started yesterday afternoon around 1 PM while at home. Patient was sitting outside when his noticed some slurred speech and left facial dropping. Tele neuro consulted. NIHSS score 5, patient not candidate for thrombolytic. Eliquis was held. He received aspirin 325 mg in the ED. CT head showed right MCA infarct (same location from last CT head), CTA head neck showed No significant neck arterial stenoses. Occlusion M1 segment right middle cerebral artery with marked decreased filling of right middle cerebral artery trifurcation vessels (also on previous imaging). -Dr. Wheat consulted -MRI pending -Neuro Checks (Q4) -Bedside Swallow Eval (passed) -Head of Bed 30 Degrees -Euglycemia and Avoid Hyperthermia (PRN Acetaminophen) -HOB flat -Hold Eliquis - reconsult Neuro after MR brain resulted to discuss when it can safely be resumed -Permissive HTN up 180/100 -PT eval #Hx HTN #Hx Atrial fibrillation, rate controlled -med rec pending -held Eliquis 5 BID while neuro recs pending ? Potassium >4, and magnesium >2 Health maintenance: Dispo: tele for r/o CVA FEN: cardiac DVT prophylaxis: SCDs CODE STATUS: Full code The patient's management plan was discussed with my attending physician Dr. Bertrand. Neris Leary, PGY-1 Attending Provider Attestation/Addendum I discussed with and supervised the resident physician who took care of this patient. I agree with the assessment and plan as above. This is a 65-year-old male patient with atrial fibrillation, history of CVA was admitted for left-sided weakness and slurred speech. Most likely had TIA. Symptoms have improved since. This morning the patient is able to move his arms and legs equally. He has comprehensible speech. Continue to monitor. Follow teleneuro recommendations.
--- NOTE | 2025-04-05 03:17 | PC.NURSE ---
REPORT CALLED TO NIKUNJ Garcia. PT TAKEN TO [id number] ON PHOTO JOURNALIST.
--- NOTE | 2025-04-05 04:22 | PC.NURSE ---
Pt's Cinda said pt has a bad side effect on zofran and megace, pt has Zofran order PRN for nausea and vomiting, MD Hampton made aware, discontinued Zofran.
[2025-04-05 05:54] LABS: Basophils % (Auto) 1 % (0-2.5); Eosinophils # (Auto) 0.2 Thou/mm3 (0.0-0.5); Eosinophils % (Auto) 2 % (0-10); Hematocrit 45.7 % (41.0-53.0); Hemoglobin 16.1 g/dL (13.5-16.0); Immature Granulocytes % (Auto) 0 % (0-0); Immature Granulocytes Auto 0.02 Thou/mm3 (0.00-0.00); Lymphocytes # (Auto) 1.4 Thou/mm3 (1.0-4.8); Lymphocytes % (Auto) 16 % (10-50); Mean Corpuscular HGB Conc 35.2 g/dl (31.0-37.0); Mean Corpuscular Hemoglobin 29.1 pg (25.0-35.0); Mean Corpuscular Volume 83 fL (80-100); Monocytes # (Auto) 0.9 Thou/mm3 (0.0-0.8); Monocytes % (Auto) 10 % (0-12); Neutrophils # (Auto) 6.1 Thou/mm3 (1.8-7.7); Neutrophils % (Auto) 71 % (37-80); Nucleated Red Blood Cell % 0 /100 WBC (0); Platelet Count 222 Thou/mm3 (140-440); RDW Standard Deviation 38.3 fL (35.1-43.9); Red Blood Count 5.54 Miln/mm3 (4.50-5.90); White Blood Count 8.5 Thou/mm3 (3.8-10.6)
[2025-04-05 06:12] LABS: Alanine Aminotransferase 28 U/L (10-49); Albumin, Serum 4.1 gm/dL (3.4-4.8); Albumin/Globulin Ratio 1.6 (1.2-2.2); Alkaline Phosphatase 80 U/L (46-116); Anion Gap 11 (7-16); Aspartate Amino Transferase 22 U/L (0-34); BUN/Creatinine Ratio 11 Ratio (12-20); Bilirubin,Total 0.9 mg/dL (0.3-1.2); Blood Urea Nitrogen 10 mg/dL (9-23); Calcium 8.7 mg/dL (8.3-10.6); Calcium (Corrected) 8.7 mg/dL (8.5-10.1); Chloride 108 mMol/L (98-107); Creatinine (Component) 0.9 mg/dL (0.6-1.3); Estimated Creatinine Clearance 85.2 mL/min (>60); Globulin 2.6 gm/dL (2.3-3.5); Glucose 87 mg/dL (74-106); Magnesium 2.1 mg/dL (1.6-2.6); Osmolality,Calculated 281 (275-295); Phosphorous 3.5 mg/dL (2.4-5.1); Potassium 3.6 mMol/L (3.4-5.1); Sodium 142 mMol/L (136-145); Total Protein 6.7 gm/dL (5.7-8.2); eGFR > 60 See Note
[2025-04-05] MEDS: ASPIRIN EC 81 MG TABEC PO (08:29)
[2025-04-05] MEDS: PANTOPRAZOLE 40 MG TABLET PO (08:29)
[2025-04-05] MEDS: POTASSIUM CHLORIDE 10% 20 MEQ/15 ML UDC 40 MEQ PO (08:29)
[2025-04-05 08:55] LABS: Misc Send Out* See Sep Rpt
--- NOTE | 2025-04-05 11:30 | PC.SS ---
Patient Lawrence Feng is a 65 Year old male admitted for CVA Workup. Patient lives at home with .? Pt ambulates independently without any DME. Patient is able to complete all ADL's independently.? .0Patient?s [facility] choice [facility] [address] , Cinda Feng is patient's medical decision maker if he is unable.? SS spoke to and pt about d/c options. SS explained recommendations from PT to an Acute Rehab Facility or Out Patient PT.? refused SNF, Acute Rehab, and Out Patient PT.? 's choice is for pt to return home upon d/c with Home Health Services D/C plan:? Return home with Home Health Next of Kin:? ?Cinda Feng, , phone# [phone] PCP:? Dr. Jason Gonzalez or Daryn Hurley from [facility] in [place] Address:? Correct on facesheet HH:? Does not have prefernce
--- NOTE | 2025-04-05 11:37 | PC.SS ---
Patient Lawrence Feng is a 65 Year old male admitted for CVA Workup. Patient lives at home with .? Pt ambulates independently and does not utilize any source of DME. Patient is able to complete all ADL's independently. [facility] [address] , Cinda Feng is patient's medical decision maker. SS spoke to and pt about d/c options. SS explained recommendations from PT to an Acute Rehab Facility or Out Patient PT.? refused SNF, Acute Rehab.? 's choice is for pt to return home upon d/c with Home Health Services D/C plan:? Return home with Home Health Next of Kin:? ?Cinda Feng, , phone# [phone] PCP:? Dr. Jason Gonzalez or Daryn Hurley HH:? Does not have prefernce
--- NOTE | 2025-04-05 13:12 | PD.RESPRO ---
Documentation for date of: 04/05/25 Subjective Subjective Interval history: Patient examined at bedside today. No acute overnight events. Patient reports that he is doing fine. Family reports that he is a bit slower with some of his responses. He does report that some of his weakness has resolved, however he walks with a cane. His son reports that he tested positive for herpes back in the day and got treatment for it, however has ever tested positive for syphilis. No other complaints at this time. Exam Vital Signs Temp Pulse Resp BP Pulse Ox O2 Del Method 97.2 F 92 20 111/81 97 Room Air 04/05/25 08:00 04/05/25 12:00 04/05/25 08:00 04/05/25 08:00 04/05/25 08:00 04/05/25 08:00 Narrative Exam General: AAOx3, NAD, German-speaking male HEENT: Moist mucous membranes, conjunctiva clear, EOMI, PERRLA, Cardiovascular: S1, S2, radial pulses +2 bilat, irregularly irregular Pulmonary: CTAB bilat no cough, no wheezing GI: No tenderness to light or deep palpitation, no guarding, rigidity, rebound tenderness or distension Extremities: No presence of trace or pitting edema in lower extremities bilaterally, dorsalis pedis pulses +2 bilaterally Neuro: Alert, awake and oriented x3. Cranial nerves: II through XII grossly intact. Speech and language: impaired comprehension. Motor system: Tone and bulk: Normal: Strength: 5 out of 5 in all 4 extremities; No pronator drift noted. Deep tendon reflexes: 2+ bilaterally symmetrical. Coordination: Intact to [id number]. No ataxia, no dysmetria, or dysdiadochokinesia noted. No intention tremors noted. Gait: Normal. Romberg: not tested. No signs of meningeal irritation noted. Has cane Objective Labs 04/06/25 04:44 04/06/25 04:44 Labs: Laboratory Results - last 24 hr 04/04/25 04/04/25 04/05/25 15:03 15:14 04:59 WBC 8.2 8.5 RBC 5.98 H 5.54 Hgb 17.3 H 16.1 H Hct 50.6 45.7 MCV 85 83 MCH 28.9 29.1 MCHC 34.2 35.2 RDW Std Deviation 39.4 38.3 Plt Count 233 222 Neut % (Auto) 75 71 Lymph % (Auto) 15 16 Angelina % (Auto) 8 10 Eos % (Auto) 1 2 Baso % (Auto) 1 1 Neut # (Auto) 6.1 6.1 Lymph # (Auto) 1.2 1.4 Angelina # (Auto) 0.7 0.9 H Eos # (Auto) 0.1 0.2 Baso # (Auto) 0.1 0.0 Immature Gran # (Auto) 0.01 H 0.02 H Absolute Nucleated RBC 0.00 0.00 Immature Gran % 0 0 Nucleated RBC % 0 0 PT 11.6 INR 1.1 APTT 27.1 Sodium 141 142 Potassium 4.1 3.6 D Chloride 107 108 H Carbon Dioxide 25.5 23.0 Anion Gap 9 11 BUN 12 10 Creatinine 1.0 0.9 Estim Creat Clear Calc 78.4 85.2 eGFR > 60 > 60 BUN/Creatinine Ratio 12 11 L Glucose 93 87 Calculated Osmolality 280 281 Calcium 8.7 8.7 Corrected Calcium 8.7 8.7 Phosphorus 3.5 Magnesium 2.2 2.1 Total Bilirubin 0.8 0.9 AST 22 22 ALT 32 28 Alkaline Phosphatase 87 80 Troponin I < 0.002 B-Natriuretic Peptide 65 Total Protein 7.3 6.7 Albumin 4.5 4.1 Globulin 2.8 2.6 Albumin/Globulin Ratio 1.6 1.6 Triglycerides 121 Cholesterol 137 LDL Cholesterol, Calc 69 HDL Cholesterol 44 Cholesterol/HDL Ratio 3.1 L Ur Collection Type Clean Catch Urine Color Yellow Urine Clarity Clear Urine pH 6.5 Ur Specific [place] 1.019 Urine Protein Negative Urine Glucose (UA) Negative Urine Ketones Negative Urine Blood Negative Urine Nitrite Negative Urine Bilirubin Negative Urine Urobilinogen (Auto) Negative Ur Leukocyte Esterase Negative Urine RBC 2 Urine WBC 1 Ur Squamous Epith Cells 2 Urine Bacteria Rare Urine Opiates Screen Negative Urine Fentanyl Screen Negative Ur Barbiturates Screen Negative U Amphetamin/Meth Scrn Negative U Benzodiazepines Scrn Negative U Cocaine Metab Screen Negative U Marijuana (THC) Screen Negative Quality Measures Quality Measures stroke Suspected type of Stroke: Acute Ischemic Last known well (date): 04/04/25 Last known well (time): 13:00 Tenecteplase given: Reason(s) Tenecteplase not given: Use of NOAC (eliquis, xarelto, or pradaxa) not given Rehab services: PT evaluation ordered and Speech Language Pathology eval ordered VTE Prophylaxis: pharmaceutical Antithrombotic by day 2:: not indicated (describe) Statin ordered: >75 y/o moderate or high intensity dose Anticoagulation ordered for A-fib or flutter (current or hx): ordered Advance care planning discussed with:: patient Assessment & Plan Assessment Current Active Medications: Generic Name Dose Route Start Last Admin Trade Name Freq PRN Reason Stop Dose Admin Acetaminophen 650 mg 04/04/25 23:58 Acetaminophen 325 Mg Tablet PO 05/04/25 23:57 Q6H PRN Fever >100.3 or pain Aspirin 81 mg 04/05/25 09:00 04/05/25 08:29 Aspirin Ec 81 Mg Tabec PO 05/05/25 08:59 81 mg QDAY YU Administration Atorvastatin Calcium 80 mg 04/05/25 21:00 Atorvastatin Calcium 20 Mg Tablet PO 05/05/25 20:59 HS YU Pantoprazole Sodium 40 mg 04/05/25 09:00 04/05/25 08:29 Pantoprazole 40 Mg Tablet PO 05/05/25 08:59 40 mg QDAY YU Administration Sennosides 1 tab 04/04/25 23:58 Senna Tablet PO 05/04/25 23:57 QDAY PRN constipation Protocol Plan Assessment 65-year-old male patient with past medical history of hypertension, hyperlipidemia, who is admitted for acute ischemic stroke on the left temporal lobe. #Acute ischemic stroke of the R parietal lobe #History of recent ischemic stroke of the R temporal lobe Symptoms started yesterday afternoon around 1 PM while at home [employer]. Patient was sitting outside when his noticed some slurred speech and left facial dropping. Tele neuro consulted. NIHSS score 5, patient not candidate for thrombolytic. Eliquis was held. He received aspirin 325 mg in the ED. Head neck CTA shows no significant stenoses however occlusion of the M1 right MCA with decreased filling deficits Patient's MRI on March 29, 2025 shows a 17 mm acute right sided infarct in the temporal lobe Head CT did not show any hemorrhagic conversion from patient's stroke last week Today patient's MRI does show extensive acute infarcts in the right temporal and parietal lobe Due to patient having new stroke within 1 week since last stroke, there could be a possibility that there might be an embolic component to this as this patient has atrial fibrillation PFO was not detected on TTE, and LUCRETIA is definitive to rule out PFO. However this would not exchange underwriting consultant at this time as patient will still need to continue with aspirin, Eliquis and vascular surgery referral outpatient Will have neuro see patient to decide if LUCRETIA is necessary TTE will not be done at this time as this was done on last admission in early March 2025 and did not show PFO Physical therapy recommended acute rehab, however patient's family is refusing this at this time. Recovery improvement with acute rehab was expressed to patient and patient's family, however they are still refusing at this time. Patient will likely need home health with PT Speech therapy is allowing for patient to have oral diet Plan: ? Neurology consulted, appreciate recs ? Telemetry ? Seizures precautions ? HOB more than 30 degrees all the time ? Continue aspirin 81 mg daily ? Continue Lipitor 80 mg daily ? Neurochecks every 4 hours ? Cardiac diet ? Permissive hypertension ? Cardiology consulted for possible LUCRETIA #A-fib, rate controlled [id number]: 4 HAS-BLED: 3 Rate controlled this time, however still irregular Patient was newly diagnosed A-fib last week Plan: ? Cardiology consulted, appreciate recs ? Potassium and magnesium above 4 and 2 respectively ? Will hold on adding rate control medicines at this time ? Telemetry ? Eliquis 5 mg twice daily ? Cardiology consulted for possible LUCRETIA #Positive syphilis test There was suspicion of associated acute encephalopathy, patient was tested positive for syphilis screening HIV negative Patient's RPR was nonreactive, however his confirmatory treponema palladium antibody was inconclusive, will reorder Low suspicion for syphilis as there is multiple stages to syphilis, patient is not presenting with presenting symptoms at this time Plan: ? Syphilis antibody #History of hypertension Plan: ? Permissive hypertension #History of hyperlipidemia LDL 135; Total 227 Plan: ? Atorvastatin as above #Health Maintenance Disposition: Telemetry DVT prophylaxis: Eliquis GI prophylaxis: Protonix Diet: Cardiac CODE STATUS: Full code Patient seen and care discussed with my attending physician, Dr. Dino Heaton, PGY-1 Attending Provider Attestation/Addendum I have examined the patient, reviewed labs and imaging findings, discussed the case with the resident(s), and reviewed entered orders. I agree with the plan of care as outlined in this note, with these additional summaries/recommendations: Patient seen at bedside. Patient reports improvement in his aphasia, nausea, and unsteady gait although he does not feel quite back to baseline. MRI brain completed which showed extensive acute infract's in the right temporal lobe and right parietal lobe. Continue aspirin and Eliquis. In-house neurology following and appreciate recs of patient would benefit from transesophageal echocardiogram. Patient completed transthoracic echocardiogram on 03/28/2025 with negative bubble study and we will defer repeat TTE. Patient was seen by physical therapy who recommends SNF placement although patient and family declined. We will order home health. Continue high intensity statin. Hypokalemia present and replacement given. Patient had a syphilis panel ordered in the emergency room on previous admission as there was concern of altered mental status. Syphilis RPR returned nonreactive and syphilis TP?PA was inconclusive. Low suspicion for syphilis at this time and patient can follow-up for repeat testing if desired or develops symptoms. Patient and family updated at bedside and in agreement. Repeat hematology and chemistry panel in AM. Please see residents note for additional details and management. Dr. Dino MD
--- NOTE | 2025-04-05 13:14 | ESCONSULT_ITS ---
HPI Data of Consult Requesting Physician: Rebel Boyle MD Admitting Provider: Tomás Mathew MD Attending Provider: Rebel Boyle MD Primary Care Provider: Jason Salmeron Consult Narrative Reason for consult: aphasia, facial droop History of present illness: The patient is a 65-year-old male with a previous medical history of hypertension, hyperlipidemia, recent stroke on 03/27/2025, A-fib on Eliquis who was brought in by ambulance on 04/04/2025 with chief complaint of speech impairment, left-sided facial droop and difficulty walking. His symptoms started approximately at 1 PM. He was also reported to experience depression and anxiety. initial vitals were blood pressure 129/75, pulse 90, respiratory rate 16, afebrile, saturating well on room air. Stroke alert was called head CT was negative for hemorrhage, showed subacute infarct in the right middle cerebral artery distribution. Head and neck CTA showed occlusion of M1 segment right middle cerebral artery with decreased filling of right middle cerebral artery trifurcation vessels. Labs showed WBC count 8.5, hemoglobin 16.1, platelets 222, INR 1.1, sodium 142, potassium 3.6, chloride 108 BUN 10, creatinine 0.9. UA was negative for signs of UTI. U tox was negative. Teleneuro was consulted, the clinical picture and review of the CT scanning of the head is consistent with a new large acute right MCA infarct with fluctuating symptoms. NIHSS score initially was 4. Eliquis was held until the results of MRI brain, he was given aspirin 325 mg. Speech therapy evaluated the patient, mild oral phase dysphagia, mechanical dysphagia diet was recommended. Neurology was consulted for acute stroke workup and management. cc:: cc: Rebel Boyle MD Review of Systems Review of Systems Systems Reviewed: All systems reviewed, normal except as documented Exam Vital Signs Temp Pulse Resp BP Pulse Ox O2 Del Method 97.2 F 92 20 111/81 97 Room Air 04/05/25 08:00 04/05/25 12:00 04/05/25 08:00 04/05/25 08:00 04/05/25 08:00 04/05/25 08:00 Narrative Exam Physical Exam General: Awake and in no acute distress. Conversational and non-toxic appearing. HEENT: Normocephalic, atraumatic, mucous membranes moist. Heart: Irregular rate and rhythm, no murmurs. Lungs: Clear to auscultation with no wheezing or crackles. Abdomen: Soft, nondistended, nontender, positive bowel sounds. ?No guarding or rebound tenderness. Neurologic: Alert, awake and oriented x3. Cranial nerves: II through XII grossly intact. Speech and language: impaired comprehension. Motor system: Tone and bulk: Normal: Strength: 5 out of 5 in all 4 extremities; No pronator drift noted. Deep tendon reflexes: 2+ bilaterally symmetrical. Coordination: Intact to [id number]. No ataxia, no dysmetria, or dysdiadochokinesia noted. No intention tremors noted. Gait: Normal. Romberg: not tested. No signs of meningeal irritation noted. Extremities: No edema. Skin: No rash or ecchymoses. Results Labs 04/06/25 04:44 04/06/25 04:44 Labs: Short CBC 04/04/25 04/05/25 Range/Units 15:03 04:59 WBC 8.2 8.5 (3.8-10.6) Thou/mm3 Hgb 17.3 H 16.1 H (13.5-16.0) g/dL Hct 50.6 45.7 (41.0-53.0) % Plt Count 233 222 (140-440) Thou/mm3 BMP 04/04/25 04/05/25 15:03 04:59 Sodium 141 142 Potassium 4.1 3.6 D Chloride 107 108 H Carbon Dioxide 25.5 23.0 BUN 12 10 Creatinine 1.0 0.9 Glucose 93 87 Calcium 8.7 8.7 Cardiac Enzymes 04/04/25 Range/Units 15:03 Troponin I < 0.002 (0.0-0.045) ng/mL Liver Function 04/04/25 04/05/25 Range/Units 15:03 04:59 Total Bilirubin 0.8 0.9 (0.3-1.2) mg/dL AST 22 22 (0-34) U/L ALT 32 28 (10-49) U/L Alkaline Phosphatase 87 80 (46-116) U/L Albumin 4.5 4.1 (3.4-4.8) gm/dL Urine 04/04/25 Range/Units 15:14 Urine Color Yellow (Lt Yel-Yel) Urine Clarity Clear (Clear/Hazy) Urine pH 6.5 (5.0-7.0) Ur Specific [place] 1.019 (1.001-1.035) Urine Protein Negative (Neg - Trace) Urine Glucose (UA) Negative (Negative) Quality Measures Quality Measures stroke Suspected type of Stroke: Acute Ischemic Last known well (date): 04/04/25 Last known well (time): 13:00 Tenecteplase given: Reason(s) Tenecteplase not given: Use of NOAC (eliquis, xarelto, or pradaxa) not given Rehab services: PT evaluation ordered VTE Prophylaxis: pharmaceutical Antithrombotic by day 2:: ordered Statin ordered: <75 y/o high intensity dose Anticoagulation ordered for A-fib or flutter (current or hx): ordered Advance care planning discussed with:: other Medications Home Medications and Allergies Home Medications ?Medication ?Instructions ?Recorded ?Confirmed ?Type amlodipine 10 mg tablet (Norvasc) 10 mg PO QDAY 04/05/25 History Held on 04/06/25. Instructions: resume with PCP, your blood pressure has been low in hospital losartan 100 mg tablet 100 mg PO QDAY 03/28/2503/22 History megestrol 20 mg tablet 20 mg PO BID 04/05/25 History omeprazole 20 mg capsule,delayed 20 mg PO QDAY 04/05/25 History release Allergies Allergy/AdvReac Type Severity Reaction Status Date / Time ondansetron (From Zofran) Allergy Severe Anxiety, Verified 04/05/25 03:24 restlessness, depression megestrol (From Megace) Allergy Intermediate suicidal Verified 04/05/25 03:54 ideation, depression Visit Medications Acetaminophen (Acetaminophen 325 Mg Tablet) 650 mg PO Q6H PRN PRN Reason: Fever >100.3 or pain Stop: 05/04/25 23:57 Aspirin (Aspirin Ec 81 Mg Tabec) 81 mg PO QDAY YU Stop: 05/05/25 08:59 Last Admin: 04/05/25 08:29 Dose: 81 mg Atorvastatin Calcium (Atorvastatin Calcium 20 Mg Tablet) 80 mg PO HS [facility] Stop: 05/05/25 20:59 Pantoprazole Sodium (Pantoprazole 40 Mg Tablet) 40 mg PO QDAY YU Stop: 05/05/25 08:59 Last Admin: 04/05/25 08:29 Dose: 40 mg Sennosides (Senna Tablet) 1 tab PO QDAY PRN; Protocol PRN Reason: constipation Stop: 05/04/25 23:57 Discontinued Medications Aspirin (Aspirin 325 Mg Tablet) 325 mg PO X1 ONE Stop: 04/04/25 21:16 Last Admin: 04/04/25 21:51 Dose: 325 mg Lorazepam (Lorazepam 2 Mg/Ml Vial) 0.5 mg IVP X1 ONE Stop: 04/05/25 09:07 Ondansetron HCl (Ondansetron Inj 2 Mg/Ml Inj 2 Ml) 4 mg IV Q6H PRN; Protocol PRN Reason: NAUSEA OR VOMITING Stop: 05/04/25 23:57 Potassium Chloride (Potassium Chloride 10% 20 Meq/15 Ml Udc) 40 meq PO X1 ONE Stop: 04/05/25 08:20 Last Admin: 04/05/25 08:29 Dose: 40 meq Potassium Chloride (Potassium Chloride 20 Meq Tabcr) 40 meq PO X1 ONE Stop: 04/05/25 08:45 Assessment & Plan Plan The patient is a 65-year-old male with a previous medical history of hypertension, hyperlipidemia, recent stroke on 03/27/2025, A-fib on Eliquis who was brought in by ambulance on 04/04/2025 with chief complaint of speech impairment, left-sided facial droop and difficulty walking. #Acute stroke #Subacute stroke 03/27/25 #Right MCA M1 stenosis DDx: new onset stroke vs stroke recrudescence 04/04/25: Head CT was negative for hemorrhage, showed subacute infarct in the right middle cerebral artery distribution. Head and neck CTA showed occlusion of M1 segment right middle cerebral artery with decreased filling of right middle cerebral artery trifurcation vessels. MRI 04/05/25: Extensive acute infarcts in the right temporal lobe right parietal lobe. Negative for hemorrhagic transformation. Plan: - telemetry - restart Eliquis 5 mg BID - aspirin 81 mg qday - physical, speech therapy - BP control - euglycemia and euthermia - Follow-up with Dr. Wheat in 2 weeks - Patient can benefit from endovascular neurology consult for possible revascularization, obtain referral outpatient after following up with Dr. Wheat #HTN #Atrial fibrillation, rate controlled - management per primary team Plan of care discussed with attending Dr. Wheat. Lovely Aguilar MD, PGY 1. Attending Provider Attestation/Addendum I personally have seen and examined the patient at the bedside and agree with resident's findings, assessment and plan of care. Continue with Eliquis and aspirin for now Will see him as an outpatient to decide about referral to interventional for M1 stenosis
--- NOTE | 2025-04-05 14:21 | PC.PT ---
PT eval only. Patient is safe to ambulate to the bathroom and in the halls with a single point cane and 1 person assist either staff or family. RN made aware.
[2025-04-05] MEDS: APIXABAN 2.5 MG TABLET 5 MG PO ×2 (14:58→20:47)
--- NOTE | 2025-04-05 16:42 | PD.RESCONSUL ---
HPI Data of Consult Requesting Physician: Rebel Boyle MD Admitting Provider: Tomás Mathew MD Attending Provider: Rebel Boyle MD Primary Care Provider: Jason Salmeron Consult Narrative History of present illness: This is 65 year-old male with PMHx HTN, HLD, A-fib on ELIQUIS, recently admitted for acute stroke, returning to ER with slurred speech and left-sided weakness. On 04/10/2025, he was admitted for acute ischemic stroke of left lower lobe. Workup then showed occlusion of the M1 segment of the right MCA on CT. MRI showed 70 mm acute infarct of the right temporal lobe. Head/neck CTA showed occlusion of M1 segment of right MCA, no significant neck arterial stenosis. He was found to have new onset atrial fibrillation, rate controlled, he was discharged on ELIQUIS which he is currently taking. TTE then was negative for PFO or ASD, showed normal LV/RV size and function, EF 60-65%, diastolic dysfunction stage I, no evidence of pericardial effusion. His symptoms reportedly improved with physical therapy discharge. However this morning, he was sitting outside his house when his noted he was having speech difficulty, specifically slurred speech, and left facial droop. He reported feeling weak and heaviness in both extremities, unable to get up from chair. On admission workup showed NIHSS score of 5. BP 120/75, HR 90, RR 16. CT head showed right MCA infarct, without evidence of hemorrhagic transformation of previous stroke. CTA head and neck showed occlusion of M1 segment right MCA, no significant neck arterial stenosis. Brain MRI showed extensive acute infarct of the right temporal lobe and right parietal lobe. CHEM panel relatively unremarkable. CBC showed hemoglobin 17.3 > 16.1, otherwise unremarkable. Coag panel WNL. UA and U tox negative. EKG showed a-fib, HR 82. Neurology team is following. He continued on stroke protocol, ELIQUIS 5 mg BID, ASPIRIN 81 mg, and ATORVASTATIN 80 mg. Cardiology team was consulted for LUCRETIA to rule out potential cardiac source of embolism or thrombus, given history of A-fib. PMH: As above PSH: none Social hx: Denied etoh, Denied smoking, Denied drug use. Allergies: No known drug allergies. Meds: AMLODIPINE 10 mg, ELIQUIS 5 mg twice daily, ATORVASTATIN 80 mg, LOSARTAN 100 mg. cc:: cc: Rebel Boyle MD Exam Vital Signs Temp Pulse Resp BP Pulse Ox O2 Del Method 97.5 F 95 23 H 117/69 98 Room Air 04/05/25 12:00 04/05/25 12:00 04/05/25 12:00 04/05/25 12:00 04/05/25 12:00 04/05/25 12:00 Narrative Exam GENERAL Normal appearing, adult male, NAD, ORA HEENT NCAT.?ELOISA. Oral mucosa is moist. Patent Nares NECK Supple, nontender, no thyromegaly, no meningismus, no JVD, no step offs CHEST Irregularly irregular, no m/g/r CTAB, no w/r/r. Symmetrical chest rise. No intercostal subcostal retraction Atraumatic, nontender, no crepitus, symmetrical expansion. ABDOMEN Soft, flat, nontender. No guarding/rebound tenderness/masses. Bowel sounds presents EXTREMITIES No edema/cyanosis.? SKIN Warm and dry, no jaundice/rashes. NEUROMUSCULAR No lumbar or midline, no CVA, no paraspinal muscle spasm or tenderness. Moves all 4 extremities well, with full ROM and good CSM. MALLOY x4, CN II-XII grossly intact. No focal neurologic deficits. PSYCHIATRY Normal mood and affect, cooperative, no SI or HI or hallucinations. Results Labs 04/06/25 04:44 04/06/25 04:44 Labs: Short CBC 04/05/25 Range/Units 04:59 WBC 8.5 (3.8-10.6) Thou/mm3 Hgb 16.1 H (13.5-16.0) g/dL Hct 45.7 (41.0-53.0) % Plt Count 222 (140-440) Thou/mm3 BMP 04/05/25 04:59 Sodium 142 Potassium 3.6 D Chloride 108 H Carbon Dioxide 23.0 BUN 10 Creatinine 0.9 Glucose 87 Calcium 8.7 Liver Function 04/05/25 Range/Units 04:59 Total Bilirubin 0.9 (0.3-1.2) mg/dL AST 22 (0-34) U/L ALT 28 (10-49) U/L Alkaline Phosphatase 80 (46-116) U/L Albumin 4.1 (3.4-4.8) gm/dL Quality Measures Quality Measures stroke Suspected type of Stroke: Acute Ischemic Last known well (date): 04/04/25 Last known well (time): 13:00 Tenecteplase given: Reason(s) Tenecteplase not given: Use of NOAC (eliquis, xarelto, or pradaxa) not given Rehab services: PT evaluation ordered VTE Prophylaxis: pharmaceutical Antithrombotic by day 2:: ordered Statin ordered: >75 y/o moderate or high intensity dose Anticoagulation ordered for A-fib or flutter (current or hx): ordered Advance care planning discussed with:: patient Medications Home Medications and Allergies Home Medications ?Medication ?Instructions ?Recorded ?Confirmed ?Type amlodipine 10 mg tablet (Norvasc) 10 mg PO QDAY 03/28/25 04/05/25 History Held on 04/06/25. Instructions: resume with PCP, your blood pressure has been low in hospital losartan 100 mg tablet 100 mg PO QDAY 03/28/25 04/05/25 History megestrol 20 mg tablet 20 mg PO BID 04/05/25 04/05/25 History omeprazole 20 mg capsule,delayed 20 mg PO QDAY 04/05/25 04/05/25 History release Allergies Allergy/AdvReac Type Severity Reaction Status Date / Time ondansetron (From Zofran) Allergy Severe Anxiety, Verified 04/05/25 03:24 restlessness, depression megestrol (From Megace) Allergy Intermediate suicidal Verified 04/05/25 03:54 ideation, depression Visit Medications Acetaminophen (Acetaminophen 325 Mg Tablet) 650 mg PO Q6H PRN PRN Reason: Fever >100.3 or pain Stop: 05/04/25 23:57 Apixaban (Apixaban 2.5 Mg Tablet) 5 mg PO BID [facility] Stop: 05/05/25 14:29 Last Admin: 04/05/25 14:58 Dose: 5 mg Aspirin (Aspirin Ec 81 Mg Tabec) 81 mg PO QDAY YU Stop: 05/05/25 08:59 Last Admin: 04/05/25 08:29 Dose: 81 mg Atorvastatin Calcium (Atorvastatin Calcium 20 Mg Tablet) 80 mg PO HS [facility] Stop: 05/05/25 20:59 Pantoprazole Sodium (Pantoprazole 40 Mg Tablet) 40 mg PO QDAY YU Stop: 05/05/25 08:59 Last Admin: 04/05/25 08:29 Dose: 40 mg Sennosides (Senna Tablet) 1 tab PO QDAY PRN; Protocol PRN Reason: constipation Stop: 05/04/25 23:57 Discontinued Medications Aspirin (Aspirin 325 Mg Tablet) 325 mg PO X1 ONE Stop: 04/04/25 21:16 Last Admin: 04/04/25 21:51 Dose: 325 mg Lorazepam (Lorazepam 2 Mg/Ml Vial) 0.5 mg IVP X1 ONE Stop: 04/05/25 09:07 Ondansetron HCl (Ondansetron Inj 2 Mg/Ml Inj 2 Ml) 4 mg IV Q6H PRN; Protocol PRN Reason: NAUSEA OR VOMITING Stop: 05/04/25 23:57 Potassium Chloride (Potassium Chloride 10% 20 Meq/15 Ml Udc) 40 meq PO X1 ONE Stop: 04/05/25 08:20 Last Admin: 04/05/25 08:29 Dose: 40 meq Potassium Chloride (Potassium Chloride 20 Meq Tabcr) 40 meq PO X1 ONE Stop: 04/05/25 08:45 Assessment & Plan Plan This is 65 year-old male with PMHx HTN, HLD, A-fib on ELIQUIS, recently admitted for acute stroke, returning to ER with slurred speech and left-sided weakness. Acute, large infarct of right parietal lobe Recent infarct right temporal lobe A-fib, rate controlled HTN Recently admitted 03/28/25 for 7 mm infarct of the right temporal lobe, found to have new onset A-fib, discharged on ELIQUIS which he has been taking as prescribed. Returning to hospital with acute onset dysarthria, left-sided heaviness and weakness. CTA showed occlusion of right MCA, brain MRI showed extensive infarct, electrically moderate, no hemorrhagic history of stroke. TTE done during last admission was was negative for PFO or ASD, showed normal LV/RV size and function, EF 60-65%, diastolic dysfunction stage I, no evidence of pericardial effusion. Continued on ELIQUIS, STATIN, ASA. Currently Normotenssive. EKG showed AFIB, rate controlled. 04/04/25 Lipid panel: TG 121 , cholesterol 137, LDL 69, HDL 44 03/28/25 TSH 0.48, T4 1.19. ? Recommended LUCRETIA to evaluation and identify potential cardiac sources of embolism, such as left atrial thrombi or aortic atheroma, which can cause blood clots to travel to the brain and cause stroke ? Patient NPO for LUCRETIA tomorrow ? Continue stroke protocol is per neurology team ? Continue ELIQUIS, STATIN, ASA Management of rest of the medical conditions as per primary team and other consultants. Thank you for the consult and allowing me to participate in the care of the patient. Cardiology will continue to follow. Case was discussed with attending, Dr. Boss. Dannie Guerrero DO PGYI Attending Provider Attestation/Addendum I have personally seen and examined the patient separately on the above date of service and discussed the plan of care with the resident. I reviewed the resident Dr. Dannie Guerrero consultation progress note and agree with the resident findings and plan in the note above and have also edited the documentation to reflect my findings and plan. A 65-year-old male with a past medical history of paroxysmal atrial fibrillation diagnosed in March 2025 on Eliquis, recent acute stroke on March 27, 2025, essential hypertension, hyperlipidemia presented to the emergency department again with slurred speech as well as left-sided weakness. Patient was seen by neurology and CTh showed right MCA infarct without any hemorrhagic transformation of the previous stroke. CTA head and neck showed occlusion of M1 right segment MCA which was also shown during the previous study. The recent brain MRI from this admission showed extensive acute infarct of the right temporal lobe as well as the right parietal lobe. Rest of the blood work appeared to be in the normal range. UA and U tox was negative. EKG showed atrial fibrillation but rate controlled at 82 bpm. Cardiology was consulted for further evaluation of LUCRETIA to rule out any cardiac source of embolism. Assessment and plan: 1. Acute stroke involving the right parietal and temporal lobe. Previous old right MCA infarct a week ago 2. Paroxysmal atrial fibrillation rate controlled diagnosed in March 2025 3. Essential hypertension 4. Hyperlipidemia Patient with a history of recurrent acute stroke as noted above did have an echocardiogram done during last admission in March 27, 2025 showed normal LVEF at 60 to 60% stage I diastolic dysfunction, normal LV size and function and no pericardial effusion with trace to mild valvular abnormalities. Patient already on Eliquis, aspirin as well as statin which we recommend to continue Patient should be on a beta-chhaya for rate control if required given his history of paroxysmal atrial fibrillation. Chest Vascor is definitely elevated at 3-4 LDL was 69 cholesterol 137 and TG 121 and normal thyroid functions. Check A1c. Primary team requesting a LUCRETIA to rule out any cardioembolic source and is an appropriate indication for the LUCRETIA. Patient denies any kind of swallowing problems or any kind of esophageal interventions or previous surgeries. Patient denies any kind of gastric ulcers bleeding and any other hematemesis or hematochezia. Patient denies any issues with anesthesia previously. Patient explained all the risks, benefits and alternatives of LUCRETIA including the risk of perforation, bleeding, respiratory failure secondary to sedation, injury to teeth gums esophagus and stomach. Patient understands all risks and benefits and provided consent for the procedure. We will keep him n.p.o. overnight and plan for LUCRETIA in the morning. Management of rest of the medical conditions as per primary team and other consultants. Thank you for the consult and allowing me to participate in the care of the patient. Cardiology will continue to follow. Brendan Boss M.D. Interventional Cardiology
[2025-04-05] MEDS: ATORVASTATIN CALCIUM 20 MG TABLET 80 MG PO (20:47)
[2025-04-06] VITALS (16 sets, daily range): BP systolic 97–150; BP diastolic 56–95; PULSE 67–98; RESP 12–26; TEMP 36.6–37.4; O2SAT 95–99; BMI 23.2; BMI 23.3
[2025-04-06 06:20] LABS: Basophils # (Auto) 0.1 Thou/mm3 (0.0-0.2); Basophils % (Auto) 1 % (0-2.5); Eosinophils # (Auto) 0.2 Thou/mm3 (0.0-0.5); Eosinophils % (Auto) 2 % (0-10); Hematocrit 45.9 % (41.0-53.0); Hemoglobin 15.7 g/dL (13.5-16.0); Immature Granulocytes % (Auto) 0 % (0-0); Immature Granulocytes Auto 0.01 Thou/mm3 (0.00-0.00); Lymphocytes # (Auto) 1.5 Thou/mm3 (1.0-4.8); Lymphocytes % (Auto) 20 % (10-50); Mean Corpuscular HGB Conc 34.2 g/dl (31.0-37.0); Mean Corpuscular Hemoglobin 28.9 pg (25.0-35.0); Mean Corpuscular Volume 84 fL (80-100); Monocytes # (Auto) 0.8 Thou/mm3 (0.0-0.8); Monocytes % (Auto) 10 % (0-12); Neutrophils # (Auto) 4.9 Thou/mm3 (1.8-7.7); Neutrophils % (Auto) 66 % (37-80); Nucleated Red Blood Cell % 0 /100 WBC (0); Platelet Count 208 Thou/mm3 (140-440); Red Blood Count 5.44 Miln/mm3 (4.50-5.90); White Blood Count 7.4 Thou/mm3 (3.8-10.6)
[2025-04-06 06:48] LABS: Alanine Aminotransferase 23 U/L (10-49); Albumin, Serum 3.9 gm/dL (3.4-4.8); Albumin/Globulin Ratio 1.6 (1.2-2.2); Alkaline Phosphatase 78 U/L (46-116); Anion Gap 12 (7-16); Aspartate Amino Transferase 22 U/L (0-34); BUN/Creatinine Ratio 10 Ratio (12-20); Bilirubin,Total 1.2 mg/dL (0.3-1.2); Blood Urea Nitrogen 9 mg/dL (9-23); Calcium 8.4 mg/dL (8.3-10.6); Calcium (Corrected) 8.5 mg/dL (8.5-10.1); Carbon Dioxide 20.2 mMol/L (20.0-31.0); Chloride 109 mMol/L (98-107); Creatinine (Component) 0.9 mg/dL (0.6-1.3); Estimated Creatinine Clearance 87.2 mL/min (>60); Globulin 2.5 gm/dL (2.3-3.5); Glucose 81 mg/dL (74-106); Magnesium 2.1 mg/dL (1.6-2.6); Osmolality,Calculated 278 (275-295); Phosphorous 3.6 mg/dL (2.4-5.1); Potassium 3.9 mMol/L (3.4-5.1); Sodium 141 mMol/L (136-145); Total Protein 6.4 gm/dL (5.7-8.2); eGFR > 60 See Note
--- NOTE | 2025-04-06 09:06 | PC.SS ---
Follow up note: LUCRETIA today. Pt will return home upon d.c.
[2025-04-06] MEDS: APIXABAN 2.5 MG TABLET 5 MG PO (09:07)
[2025-04-06] MEDS: PANTOPRAZOLE 40 MG TABLET PO (09:07)
[2025-04-06] MEDS: ASPIRIN EC 81 MG TABEC PO (09:07)
[2025-04-06] MEDS: POTASSIUM CHL 10 mEq IVPB 10 MEQ/100 ML BAG 100 MEQ IV (09:08)
--- NOTE | 2025-04-06 09:25 | CHAP ---
Patient expressed gratitude for visit and prayer.
--- NOTE | 2025-04-06 09:58 | PC.CM ---
Patient is opened to [facility] health. If patient returns home we will need new home health orders.
[2025-04-06] MEDS: BENZOCAINE 20% (Hurricaine) SPRAY 1 DOSE TOP (12:12)
[2025-04-06] MEDS: fentaNYL CIT INJ 50 mCg/ML AMP 2ML 75 MCG IV (12:13)
[2025-04-06] MEDS: MIDAZOLAM INJ 1 MG/ML VIAL 2 ML 3.5 MG IV (12:15)
--- NOTE | 2025-04-06 13:43 | ESPR_ITS ---
Documentation for date of: 04/06/25 Subjective Subjective Interval history: Patient was seen and examined by the bedside. No acute overnight events. Patient underwent LUCRETIA, negative for intracardiac thrombus. Speech has improved. Patient is stable for discharge. Exam Vital Signs Temp Pulse Resp BP Pulse Ox O2 Del Method O2 Flow Rate 98.2 F 80 17 105/74 97 Room Air 2 04/06/25 10:46 04/06/25 13:09 04/06/25 13:09 04/06/25 13:09 04/06/25 13:04/06/25 13:04/06/25 12:45 Narrative Exam Physical Exam General: Awake and in no acute distress. Conversational and non-toxic appearing. HEENT: Normocephalic, atraumatic, mucous membranes moist. Heart: Irregular rate and rhythm, no murmurs. Lungs: Clear to auscultation with no wheezing or crackles. Abdomen: Soft, nondistended, nontender, positive bowel sounds. ?No guarding or rebound tenderness. Neurologic: Alert, awake and oriented x3. Cranial nerves: II through XII grossly intact. Speech and language: impaired comprehension. Motor system: Tone and bulk: Normal: Strength: 5 out of 5 in all 4 extremities; No pronator drift noted. Deep tendon reflexes: 2+ bilaterally symmetrical. Coordination: Intact to [id number]. No ataxia, no dysmetria, or dysdiadochokinesia noted. No intention tremors noted. Gait: Normal. Romberg: not tested. No signs of meningeal irritation noted. Extremities: No edema. Skin: No rash or ecchymoses. Objective Labs 04/06/25 04:44 04/06/25 04:44 Labs: Laboratory Results - last 24 hr 04/06/25 04:44 WBC 7.4 RBC 5.44 Hgb 15.7 Hct 45.9 MCV 84 MCH 28.9 MCHC 34.2 RDW Std Deviation 39.0 Plt Count 208 Neut % (Auto) 66 Lymph % (Auto) 20 [place] % (Auto) 10 Eos % (Auto) 2 Baso % (Auto) 1 Neut # (Auto) 4.9 Lymph # (Auto) 1.5 [place] # (Auto) 0.8 Eos # (Auto) 0.2 Baso # (Auto) 0.1 Immature Gran # (Auto) 0.01 H Absolute Nucleated RBC 0.00 Immature Gran % 0 Nucleated RBC % 0 Sodium 141 Potassium 3.9 Chloride 109 H Carbon Dioxide 20.2 Anion Gap 12 BUN 9 Creatinine 0.9 Estim Creat Clear Calc 87.2 eGFR > 60 BUN/Creatinine Ratio 10 L Glucose 81 Calculated Osmolality 278 Calcium 8.4 Corrected Calcium 8.5 Phosphorus 3.6 Magnesium 2.1 Total Bilirubin 1.2 AST 22 ALT 23 Alkaline Phosphatase 78 Total Protein 6.4 Albumin 3.9 Globulin 2.5 Albumin/Globulin Ratio 1.6 Quality Measures Quality Measures stroke Suspected type of Stroke: Acute Ischemic Last known well (date): 04/04/25 Last known well (time): 13:00 Tenecteplase given: Reason(s) Tenecteplase not given: Use of NOAC (eliquis, xarelto, or pradaxa) not given Rehab services: PT evaluation ordered VTE Prophylaxis: pharmaceutical Antithrombotic by day 2:: ordered Statin ordered: <75 y/o high intensity dose Anticoagulation ordered for A-fib or flutter (current or hx): ordered Advance care planning discussed with:: other Assessment & Plan Assessment Current Active Medications: Generic Name Dose Route Start Last Admin Trade Name Freq PRN Reason Stop Dose Admin Acetaminophen 650 mg 04/04/25 23:58 Acetaminophen 325 Mg Tablet PO 05/04/25 23:57 Q6H PRN Fever >100.3 or pain Apixaban 5 mg 04/05/25 14:30 04/06/25 09:07 Apixaban 2.5 Mg Tablet PO 05/05/25 14:29 5 mg BID YU Administration Aspirin 81 mg 04/05/25 09:00 04/06/25 09:07 Aspirin Ec 81 Mg Tabec PO 05/05/25 08:59 81 mg QDAY YU Administration Atorvastatin Calcium 80 mg 04/05/25 21:00 04/05/25 20:47 Atorvastatin Calcium 20 Mg Tablet PO 05/05/25 20:59 80 mg HS YU Administration Pantoprazole Sodium 40 mg 04/05/25 09:00 04/06/25 09:07 Pantoprazole 40 Mg Tablet PO 05/05/25 08:59 40 mg QDAY YU Administration Sennosides 1 tab 04/04/25 23:58 Senna Tablet PO 05/04/25 23:57 QDAY PRN constipation Protocol Plan The patient is a 65-year-old male with a previous medical history of hypertension, hyperlipidemia, recent stroke on 03/27/2025, A-fib on Eliquis who was brought in by ambulance on 04/04/2025 with chief complaint of speech impairment, left-sided facial droop and difficulty walking. #Acute stroke #Subacute stroke 03/27/25 #Right MCA M1 stenosis DDx: new onset stroke vs stroke recrudescence 04/04/25: Head CT was negative for hemorrhage, showed subacute infarct in the right middle cerebral artery distribution. Head and neck CTA showed occlusion of M1 segment right middle cerebral artery with decreased filling of right middle cerebral artery trifurcation vessels. MRI 04/05/25: Extensive acute infarcts in the right temporal lobe right parietal lobe. Negative for hemorrhagic transformation. LUCRETIA: negative for intracardiac thrombus. Discharge plan: - Eliquis 5 mg BID - aspirin 81 mg qday - physical, speech therapy - BP control - euglycemia and euthermia - Follow-up with Dr. Wheat in 2 weeks - Patient can benefit from endovascular neurology consult for possible revascularization, obtain referral outpatient after following up with Dr. Wheat #HTN #Atrial fibrillation, rate controlled - management per primary team Plan of care discussed with attending Dr. Wheat. Lovely Aguilar MD, PGY 1. Attending Provider Attestation/Addendum I personally have seen and examined the patient at the bedside and I agree with resident's findings, assessment and plan of care. Continue with Eliquis and aspirin. Follow-up as an outpatient and decide about the referral to neurointerventional for M1 stenosis
--- NOTE | 2025-04-06 13:57 | ECHO_ITS ---
Transesophageal Echo Report Ht (in): 71 Wt (lb): 166 Exam Location: [facility] Status: Inpatient Senior Stock Plan Administrator: KILEY Bartholomew^^^^ Indications: Procedure Performed: BP: 123 / 85 HR: Rhythm: Atrial fibrillation MEASUREMENTS 2D ECHO Aortic Root Diameter 4.0 cm (Male / Female) Normal Values FINDINGS Left Ventricle Normal left ventricular size, wall thickness, systolic function with no obvious regional wall motion abnormalities. Normal left ventricular diastolic filling pattern for age. The ejection fraction is visually estimated at 55-60 %. Right Ventricle The right ventricle is normal in size and systolic function. The estimated right ventricular systolic pressure, 25 mmHg. Left Atrium The left atrium is normal by two-dimensional, color flow and Doppler imaging with no structural abnormalities, no thrombus formation present. Right Atrium The right atrium is normal by two-dimensional imaging, color flow and Doppler imaging with no structural abnormalities, no thrombus formation present. Atrial Appendages The left atrial appendage appears normal with no evidence for thrombus. Atrial Septum The interatrial septum is normal to color flow Doppler and agitated saline imaging. Aorta Mildly dilated aortic annulus. Mitral Valve Mild mitral regurgitation. Mild mitral annular calcification. Aortic Valve Trace to mild aortic valve regurgitation. Tricuspid Valve There is mild tricuspid valve regurgitation. Pulmonic Valve Trivial pulmonic valve regurgitation. Vessels The pulmonary artery appears normal. The inferior vena cava pulmonary and hepatic veins appear normal. Pericardium The pericardium is normal by two-dimensional imaging. There is no significant pericardial effusion. CONCLUSIONS Indication: Stroke No evidence of any PFO or ASD. No evidence of any LA or BOBBY thrombus or other cardiogenic source. Normal LV size and function with an estimated EF of 55 to 60%. Normal RV size and function. Mildly dilated ascending aorta. Normal pulmonic vein flow. Mild TR, trace to mild MR and trace AI. Brendan Boss (Electronically Signed) Final Date: 06 Apr 2025 17:45
--- NOTE | 2025-04-06 14:57 | ESPR_ITS ---
Documentation for date of: 04/06/25 Subjective Subjective Interval history: No acute overnight events. Denies new symptoms or worsening of symptoms. Vitals within normal limits. CBC and CHEM panel relatively within normal limits. LUCRETIA today showed no evidence of any PFO or ASD, no evidence of any LA or BOBBY thrombus or other cardiogenic source. Recommended continue management per neurology and primary team. Exam Vital Signs Temp Pulse Resp BP Pulse Ox O2 Del Method O2 Flow Rate 98.2 F 75 22 H 121/65 97 Room Air 2 04/06/25 13:30 04/06/25 13:30 04/06/25 13:30 04/06/25 13:30 04/06/25 13:30 04/06/25 13:30 04/06/25 12:45 Narrative Exam GENERAL * Normal appearing, adult male, NAD, ORA HEENT * NCAT.?ELOISA. Oral mucosa is moist. Patent Nares NECK * Supple, nontender, no thyromegaly, no meningismus, no JVD, no step offs CHEST * Irregularly irregular, no m/g/r * CTAB, no w/r/r. Symmetrical chest rise. No intercostal subcostal retraction * Atraumatic, nontender, no crepitus, symmetrical expansion. ABDOMEN * Soft, flat, nontender. No guarding/rebound tenderness/masses. * Bowel sounds presents EXTREMITIES * No edema/cyanosis.? SKIN * Warm and dry, no jaundice/rashes. NEUROMUSCULAR * No lumbar or midline, no CVA, no paraspinal muscle spasm or tenderness. * Moves all 4 extremities well, with full ROM and good CSM. * MALLOY x4, CN II-XII grossly intact. * No focal neurologic deficits. PSYCHIATRY * Normal mood and affect, cooperative, no SI or HI or hallucinations. Objective Labs 04/06/25 04:44 04/06/25 04:44 Labs: Laboratory Results - last 24 hr 04/06/25 04:44 WBC 7.4 RBC 5.44 Hgb 15.7 Hct 45.9 MCV 84 MCH 28.9 MCHC 34.2 RDW Std Deviation 39.0 Plt Count 208 Neut % (Auto) 66 Lymph % (Auto) 20 Banks % (Auto) 10 Eos % (Auto) 2 Baso % (Auto) 1 Neut # (Auto) 4.9 Lymph # (Auto) 1.5 Banks # (Auto) 0.8 Eos # (Auto) 0.2 Baso # (Auto) 0.1 Immature Gran # (Auto) 0.01 H Absolute Nucleated RBC 0.00 Immature Gran % 0 Nucleated RBC % 0 Sodium 141 Potassium 3.9 Chloride 109 H Carbon Dioxide 20.2 Anion Gap 12 BUN 9 Creatinine 0.9 Estim Creat Clear Calc 87.2 eGFR > 60 BUN/Creatinine Ratio 10 L Glucose 81 Calculated Osmolality 278 Calcium 8.4 Corrected Calcium 8.5 Phosphorus 3.6 Magnesium 2.1 Total Bilirubin 1.2 AST 22 ALT 23 Alkaline Phosphatase 78 Total Protein 6.4 Albumin 3.9 Globulin 2.5 Albumin/Globulin Ratio 1.6 Quality Measures Quality Measures stroke Suspected type of Stroke: Acute Ischemic Last known well (date): 04/04/25 Last known well (time): 13:00 Tenecteplase given: Reason(s) Tenecteplase not given: Use of NOAC (eliquis, xarelto, or pradaxa) not given Rehab services: PT evaluation ordered VTE Prophylaxis: pharmaceutical Antithrombotic by day 2:: ordered Statin ordered: >75 y/o moderate or high intensity dose Anticoagulation ordered for A-fib or flutter (current or hx): ordered Advance care planning discussed with:: patient Assessment & Plan Assessment Current Active Medications: Generic Name Dose Route Start Last Admin Trade Name Freq PRN Reason Stop Dose Admin Acetaminophen 650 mg 04/04/25 23:58 Acetaminophen 325 Mg Tablet PO 05/04/25 23:57 Q6H PRN Fever >100.3 or pain Apixaban 5 mg 04/05/25 14:30 04/06/25 09:07 Apixaban 2.5 Mg Tablet PO 05/05/25 14:29 5 mg BID YU Administration Aspirin 81 mg 04/05/25 09:00 04/06/25 09:07 Aspirin Ec 81 Mg Tabec PO 05/05/25 08:59 81 mg QDAY YU Administration Atorvastatin Calcium 80 mg 04/05/25 21:00 04/05/25 20:47 Atorvastatin Calcium 20 Mg Tablet PO 05/05/25 20:59 80 mg HS YU Administration Pantoprazole Sodium 40 mg 04/05/25 09:00 04/06/25 09:07 Pantoprazole 40 Mg Tablet PO 05/05/25 08:59 40 mg QDAY YU Administration Sennosides 1 tab 04/04/25 23:58 Senna Tablet PO 05/04/25 23:57 QDAY PRN constipation Protocol Plan This is 65 year-old male with PMHx HTN, HLD, A-fib on ELIQUIS, recently admitted for acute stroke, returning to ER with slurred speech and left-sided weakness. Acute, large infarct of right parietal lobe Recent infarct right temporal lobe A-fib, rate controlled HTN Recently admitted 03/28/25 for 7 mm infarct of the right temporal lobe, found to have new onset A-fib, discharged on ELIQUIS which he has been taking as prescribed. Returning to hospital with acute onset dysarthria, left-sided heaviness and weakness. CTA showed occlusion of right MCA, brain MRI showed extensive infarct, electrically moderate, no hemorrhagic history of stroke. TTE done during last admission was was negative for PFO or ASD, showed normal LV/RV size and function, EF 60-65%, diastolic dysfunction stage I, no evidence of pericardial effusion. Continued on ELIQUIS, STATIN, ASA. Currently Normotenssive. EKG showed AFIB, rate controlled. 04/04/25 Lipid panel: TG 121 , cholesterol 137, LDL 69, HDL 44 03/28/25 TSH 0.48, T4 1.19. 04/06/25 LUCRETIA Findings: * No evidence of any PFO or ASD. No evidence of any LA or BOBBY thrombus or other cardiogenic source. * Normal LV size and function with an estimated EF of 55 to 60%. * Normal RV size and function. * Mildly dilated ascending aorta. Normal pulmonic vein flow. * Mild TR, trace to mild MR and trace AI. ? Continue stroke protocol is per neurology team ? Continue ELIQUIS, STATIN, ASA Management of rest of the medical conditions as per primary team and other consultants. Thank you for the consult and allowing me to participate in the care of the patient. Cardiology will continue to follow. Case was discussed with attending, Dr. Boss. Dannie Guerrero DO PGYI Attending Provider Attestation/Addendum I have personally seen and examined the patient separately on the above date of service and discussed the plan of care with the resident. I reviewed the resident Dr. Dannie Guerrero consultation progress note and agree with the resident findings and plan in the note above and have also edited the documentation to reflect my findings and plan. A 65-year-old male with a past medical history of paroxysmal atrial fibrillation diagnosed in March 2025 on Eliquis, recent acute stroke on March 27, 2025, essential hypertension, hyperlipidemia presented to the emergency department again with slurred speech as well as left-sided weakness. Patient was seen by neurology and CTh showed right MCA infarct without any hemorrhagic transformation of the previous stroke. CTA head and neck showed occlusion of M1 right segment MCA which was also shown during the previous study. The recent brain MRI from this admission showed extensive acute infarct of the right temporal lobe as well as the right parietal lobe. Rest of the blood work appeared to be in the normal range. UA and U tox was negative. EKG showed atrial fibrillation but rate controlled at 82 bpm. Cardiology was consulted for further evaluation of LUCRETIA to rule out any cardiac source of embolism. Assessment and plan: 1. Acute stroke involving the right parietal and temporal lobe. Previous old right MCA infarct a week ago 2. Paroxysmal atrial fibrillation rate controlled diagnosed in March 2025 3. Essential hypertension 4. Hyperlipidemia Patient with a history of recurrent acute stroke as noted above did have an echocardiogram done during last admission in March 27, 2025 showed normal LVEF at 60 to 60% stage I diastolic dysfunction, normal LV size and function and no pericardial effusion with trace to mild valvular abnormalities. Patient already on Eliquis, aspirin as well as statin which we recommend to continue Patient should be on a beta-chhaya for rate control if required given his history of paroxysmal atrial fibrillation. Chest Vascor is definitely elevated at 3-4 LDL was 69 cholesterol 137 and TG 121 and normal thyroid functions. Check A1c. Primary team requesting a LUCRETIA to rule out any cardioembolic source and is an appropriate indication for the LUCRETIA. LUCRETIA showed no evidence of LA or LA thrombus and no evidence of any PFO or ASD ruling out any kind of cardiac embolic source. Patient recommended to follow-up in the clinic in the next 1 week. If patient continues to be in atrial fibrillation then patient will need to be cardioverted which can be done later as an outpatient when he recovers adequately from the stroke. Management of rest of the medical conditions as per primary team and other consultants. Thank you for the consult and allowing me to participate in the care of the patient. Cardiology will continue to follow. Brendan Boss M.D. Interventional Cardiology
--- NOTE | 2025-04-06 15:29 | ESDS_ITS ---
Planned Discharge Date 04/06/25 DS: Providers Provider Date of admission: 04/04/25 23:58 Primary care physician: Jason Salmeron Admitting Provider: Tomás Mathew MD Attending Provider on Admission: Rebel Boyle MD Consults: 04/04/25 13:53 Consult to Neurology / Tele-Neurology Routine Comment: Consulting Provider: [facility] 04/05/25 01:55 Consult to Neurology / Tele-Neurology Routine Comment: Consulting Provider: Michael Wheat 04/05/25 08:00 Referral Speech Therapy Urgent Comment: 04/05/25 08:16 Referral Physical Therapy Routine Comment: Physician Instructions: 04/05/25 12:45 Consult to Cardiology Routine Comment: Bal rule out embolic cva Consulting Provider: Brendan Boss Attending Provider on DC: Rashel Sun MD Discharging Provider: Rashel Sun MD DS: Diagnosis Problem List Completed Was Problem List Reviewed/Reconciled?: Yes Hospital Course Hospital Course Hospital course: Lawrence is 65 yr male with PMH of HTN, HLD, Afib on Eliquis was admitted to [facility] on April 05, 2025 for acute ischemic stroke of the right parietal lobe. Patient was recently discharged on March 28, 2025 for an ischemic stroke of the right temporal lobe. Pt arrived to the ED with a BP of 129/75, HR 90, RR 16, afebrile. CBC unremarkable. Glucose 93, Cr 1.0. UA negative, Utox negative. Stroke alert was called. CT head showed right MCA infarct (same location from last CT head), CTA head neck showed No significant neck arterial stenoses. Occlusion M1 segment right middle cerebral artery with marked decreased filling of right middle cerebral artery trifurcation vessels (also on previous imaging). EKG showed atrial fibrillation with rate 82, QTc 407. MRI head pending. Teleneuro was consulted. NIHSS score 4, patient not candidate for thrombolytic and Eliquis was held. He received aspirin 325 mg while in the ED. While admitted in the hospital, patient had additional MRI which showed acute infarct located in the right parietal lobe. Patient had been discharged last week with an ischemic stroke of the right temporal lobe. Neurology was consulted who had recommended to continue with Eliquis, aspirin and high intensity statin of Lipitor 80. It also recommended that patient will likely benefit from vascular referral as patient may need vascular intervention as patient has stenosis in the right MCA with filling defects. Due to patient having atrial fibrillation although rate controlled and having 2 strokes in 1 week, cardiology was consulted for BAL to rule out PFO. BAL was performed which was negative for PFO. Neurology had cleared patient for discharge and had recommended follow-up with Dr. Wheat will refer her for vascular. We recommended patient to continue taking Eliquis, aspirin and high intensity statin. We also recommended patient to continue with home health PT, although patient did refuse physical therapy's recommendation of acute rehab. We also ordered a syphilis test send out again to he will need to follow-up with his primary care doctor for the pending result, as we have low suspicion for any disseminated syphilis. Discharge Instructions: Follow-up with your PCP within 1 week Follow-up with a aluminum can collector within 1 week, Dr. Koenig Continue taking Eliquis 5 mg twice a day as this is a blood thinner to prevent any future strokes Follow-up with the neurologist, Dr. Wheat within 1 week as you just had a stroke. She will refer you to a vascular surgeon for possible intervention of your stenosed MCA Take medicines as prescribed Return to ER if symptoms worsen or return I am holding your amlodipine 10 mg because your blood pressure has been a bit low in the hospital. Continue to take your Losartan, hold if your SBP (the top number) is below 100. Use your blood pressure cuff at home, purchase one if you don't have one. Continue to work with home health PT You tested positive for an infection called syphillis, the confirmatory test came back inconclusive, follow up with your PCP for further testing Follow up with your TSH level outpatient with your PCP as this was low in the hospital Take your cholesterol medicine, Atorvastatin 80 mg as this a medicine after you had a stroke Problem List: #Acute ischemic stroke of the R parietal lobe #History of recent ischemic stroke of the R temporal lobe #A-fib, rate controlled #Positive syphilis test #History of hypertension #History of hyperlipidemia Discharge summary was reviewed with my attending Dr. Dino Heaton, PGY-1 Time Spent with Patient Time attestation: Total time spent providing and/or coordinating discharge services: Time spent: Greater than 30 minutes Home Health Home Health Referral Orders: 04/05/25 15:45 Home Health Referral Routine Reason For Exam: Physical therapy Home-Bound The patient must either because of illness or injury, need the aid of supportive devices such as crutches, canes, wheelchairs, and walkers; the use of special transportation; or the assistance of another person in order to leave their place of residence; OR have a condition such that leaving his or her home is medically contraindicated. In addition, the patient also meets the following criteria: patient is normally unable to leave the home and leaving home requires considerable taxing effort. Addendum to Home Health Certification Practitioner's Certification: I certify that the patient has been under my care in the hospital and the care of attending physician (see below). We had a [id number]-[id number] encounter on (see date below). My clinical findings indicate that the patient is home bound per the above criteria and the Home Health Services noted in these orders are medically necessary. The primary reason for the jlhj-ce-[id number] encounter is related to the fact that the patient requires home health services. Date Certifying Yatx-mc-Mtop Physician Encounter: 04/05/25 Physician's Name who will Assume Oversight for Services: Jason Gonzalez Physician's Phone No.who will Assume Oversight for Service: MILL HELPER - Community Resources: No PT to Evaluate: Yes PT to evaluate and provide a treatmnet plan to increase patient's mobility and strength. Wound Care: No IV Therapy: No RN Safety Evaluation: Yes RN to evaluate and create a plan of care that will produce positive outcomes. Palliative Treatment: No Palliative treatment and evaluate the need for hospice. Home Health Aide - Personal Care: No Home Health Aide to assist with any ADL's. Exam Vital Signs Temp Pulse Resp BP Pulse Ox O2 Del Method O2 Flow Rate 98.2 F 75 22 H 121/65 97 Room Air 2 04/06/25 13:30 04/06/25 13:30 04/06/25 13:30 04/06/25 13:30 04/06/25 13:30 04/06/25 13:30 04/06/25 12:45 Narrative Exam General: AAOx3, NAD, Mexican-speaking male HEENT: Moist mucous membranes, conjunctiva clear, EOMI, PERRLA, Cardiovascular: S1, S2, radial pulses +2 bilat, irregularly irregular, possible SK seen by sternum Pulmonary: CTAB bilat no cough, no wheezing GI: No tenderness to light or deep palpitation, no guarding, rigidity, rebound tenderness or distension Extremities: No presence of trace or pitting edema in lower extremities bilaterally, dorsalis pedis pulses +2 bilaterally Neuro: Alert, awake and oriented x3. Cranial nerves: II through XII grossly intact. Speech and language: impaired comprehension. Motor system: Tone and bulk: Normal: Strength: 5 out of 5 in all 4 extremities; No pronator drift noted. Deep tendon reflexes: 2+ bilaterally symmetrical. Coordination: Int act to [id number]. No ataxia, no dysmetria, or dysdiadochokinesia noted. No intention tremors noted. Gait: Normal. Romberg: not tested. No signs of meningeal irritation noted. Has cane Discharge Plan Plan Patient Disposition: Home w/HOME HEALTH Patient condition on transfer: Stable Care Plan Goals: Discharge Instructions: Follow-up with your PCP within 1 week Follow-up with a aluminum can collector within 1 week, Dr. Koenig Continue taking Eliquis 5 mg twice a day as this is a blood thinner to prevent any future strokes Follow-up with the neurologist, Dr. Wheat within 1 week as you just had a stroke. She will refer you to a vascular surgeon for possible intervention of your stenosed MCA Take medicines as prescribed Return to ER if symptoms worsen or return I am holding your amlodipine 10 mg because your blood pressure has been a bit low in the hospital. Continue to take your Losartan, hold if your SBP (the top number) is below 100. Use your blood pressure cuff at home, purchase one if you don't have one. Continue to work with home health PT You tested positive for an infection called syphillis, the confirmatory test came back inconclusive, follow up with your PCP for further testing Follow up with your TSH level outpatient with your PCP as this was low in the hospital Take your cholesterol medicine, Atorvastatin 80 mg as this a medicine after you had a stroke Consulte con cartagena m?dico de cabecera en margo semana. Consulte con un cardi?logo en margo semana, el Dr. Koenig. Contin?e tomando Eliquis 5 mg dos veces al d?a, ya que es un anticoagulante para prevenir futuros accidentes cerebrovasculares. Consulte con el neur?logo, el Dr. Wheat, en margo semana, ya que acaba de sufrir un accidente cerebrovascular. ?l lo derivar? a un cirujano vascular para margo posible intervenci?n en cartagena arteria cerebral media estenosada. Villas los medicamentos seg?n lo prescrito. Regrese a urgencias si los s?ntomas empeoran o reaparecen. Le estoy suspendiendo la bill de amlodipino 10 mg porque cartagena presi?n arterial cox estado un poco baja en el hospital. Contin?e tomando Losart?n; suspenda la bill si cartagena presi?n arterial sist?lica (el valor superior) es inferior a 100. Use cartagena tensi?metro en casa; compre jace si no tiene. Contin?e trabajando con cartagena fisioterapeuta a domicilio. Saurav positivo en la prueba de s?filis y el resultado de la prueba de confirmaci?n no fue concluyente. Consulte con cartagena m?dico de cabecera para realizar m?s pruebas . Abdulkadir un seguimiento ambulatorio de cartagena nivel de TSH con cartagena m?dico de cabecera, ya que estaba bajo en el hospital. Villas cartagena medicamento para el colesterol, Atorvastatina 80 mg, ya que es un medicamento para despu?s de kam sufrido un derrame cerebral. Prescriptions/Referrals Prescriptions/Med Rec: Continued losartan 100 mg tablet 100 mg PO QDAY Eliquis 5 mg tablet 5 mg PO BID 30 Days Qty: 60 2RF Rx Instructions: Take one tablet by mouth twice a day everyday atorvastatin 80 mg tablet 80 mg PO QDAY Qty: 30 3RF omeprazole 20 mg capsule,delayed release(DR/EC) 20 mg PO QDAY megestrol 20 mg tablet 20 mg PO BID Held amlodipine [Norvasc] 10 mg tablet 10 mg PO QDAY Hold Instructions: resume with PCP, your blood pressure has been low in hospital Referrals: Jason Gonzalez [Primary Care Provider] - Patient/Caregiver Discharge Instructions Discharge Activity: as per physical therapy and activity as tolerated Education Materials: Stroke and Heart Disease, AFL/Afib, Stroke Self Care After, Stroke Prevent Live W Atrial Fib Print Language: Icelandic Stand Alone Forms: Mimi Award Info., Patient Portal Info Letter Discharge Order Discharge Orders: Discharge (Routine); Ordered 04/06/25 Ordered By: Jagdish Heaton Quality Discharge Quality Measures VTE prophylaxis (Eliquis) Attestestation MD Attestation I have examined the patient, reviewed labs and imaging findings, discussed the case with the resident(s), and reviewed entered orders. I agree with the plan of care as outlined in this note, with these additional summaries/recommendations: Patient seen at bedside. No acute overnight events. Discussed with patient that he will go for transesophageal echocardiogram today with cardiology. Patient and family in agreement. Continue aspirin, Eliquis, and statin for acute CVA. Counseled patient and daughter that he would benefit from outpatient neurovascular consult for revascularization given head and neck CTA showed occlusion of M1 segment right middle cerebral artery with decreased filling. We will monitor how patient does after BAL and anticipate discharge in the next 24 to 48 hours. Patient was seen by physical therapy who recommends SNF although patient refused and we will arrange home health. Dr. Dino MD
--- NOTE | 2025-04-07 09:57 | PC.CC ---
AVRIL booked for HH, SOC 5
== END 2025-04-06 16:54 | disposition home health service (06) | DRG 65 ==
LOC: SERX 23:10 → SERHOLD 04-05 00:33 → S2NX 04-05 03:02
PROVIDERS: Internal Medicine Cardiovascular Disease; Physician Assistant; Student in an Organized Health Care Education/Training Program; Admitting Provider Internal Medicine; Emergency Provider Emergency Medicine; PCP Physician Assistant; Visit Provider Student in an Organized Health Care Education/Training Program
PROC: (CPT 93312; principal; 2025-04-06 11:45)
DX: I63.511 Cerebral infarction due to unspecified occlusion or stenosis of right middle cerebral artery (principal); R41.4 Neurologic neglect syndrome; R47.01 Aphasia; R26.2 Difficulty in walking, not elsewhere classified; I10 Essential (primary) hypertension; E78.5 Hyperlipidemia, unspecified; I48.91 Unspecified atrial fibrillation; R29.704 NIHSS score 4; E87.6 Hypokalemia; F32.A Depression, unspecified; F41.9 Anxiety disorder, unspecified; I77.819 Aortic ectasia, unspecified site; R47.1 Dysarthria and anarthria; A53.0 Latent syphilis, unspecified as early or late; I48.0 Paroxysmal atrial fibrillation; R29.705 NIHSS score 5; R29.810 Facial weakness; Z79.01 Long term (current) use of anticoagulants; Z79.82 Long term (current) use of aspirin; Z79.899 Other long term (current) drug therapy; Z87.891 Personal history of nicotine dependence; Z88.8 Allergy status to other drugs, medicaments and biological substances
CPT/HCPCS: 36415; 70450; 70496; 70498; 70544; 80053; 80061; 80307; 81001; 83735; 83880; 84100; 84484; 85025; 85610; 85730; 86780; 87081; 87086; 92610; 93005; 93312; 97162; 99152; 99285; A4649; J2250; J3010; J3480; Q9967; A9270

== ENCOUNTER → 2025-06-27 | Outpatient (CLI) | payer MEDICARE, MEDICAID, SELFPAY ==
--- NOTE | 2025-06-27 09:30 | XR_ITS ---
Examination: Esophagram standard Fluoroscopy Upright PA chest single view Upright soft tissue lateral neck single view Date and time: June 27, 2025 1022 hours INDICATIONS: Difficulty swallowing 3 months. FINDINGS: Patient cooperation is limited Upright PA chest single view demonstrates normal heart size and clear lungs Soft tissue lateral neck demonstrates moderate to advanced degenerative disc disease C3-C4, C5-C6, C6-C7 Normal epiglottis There are primary peristaltic esophageal waves There are numerous secondary and tertiary esophageal contractions There is moderate continuous gastroesophageal reflux The patient could only ingest small amounts of barium which limits this study IMPRESSION: Severely limited study secondary to lack of patient cooperation Significant esophageal dysmotility Continuous gastroesophageal reflux
== END | disposition home or self-care (01) ==
PROVIDERS: PCP Physician Assistant; Referring Provider Physician Assistant; Visit Provider Physician Assistant
DX: K21.9 Gastro-esophageal reflux disease without esophagitis (principal); K22.89 Other specified disease of esophagus
CPT/HCPCS: 74220; A4649

== ENCOUNTER 2025-07-18 14:00 | Outpatient (RCR) | payer MEDICARE, MEDICAID, SELFPAY ==
--- NOTE | 2025-07-12 13:41 | PT.OIERPT ---
PT OP Initial Eval Patient Information Outpatient Physical Therapy Treatment Date: 07/12/25 Visit Reasons: Cerebrovascular accident Medical Diagnosis: I63.9 Treatment Dx #1: balance impairment Start of Care: 07/12/25 Date of Onset: March 2025 Smoking Status Smoking Status: Never smoker Initial Assessment Subjective: Pt is 65 yr old lebanese speaking male s/p CVA x3 in March. His is helping with the history and says he loses balance sometimes and says he feels weak on the L side. Pt says he can dress himself and do most ADL's. He says his balance feels good with walking but his says he's not aware of the L foot sometimes. PLOF: pt was independent with functional mobility without assistive device. PMH: HTN, HLD, Afib on Eliquis Pt goal: better balance and LE strength Objective: System Operator strength: R: 80 lbs, L: 76 lbs Gait: symmetrical pattern LE strength: B ankle DF: 4/5 Quads: 4/5 HS: 4/5 [id number] Tinetti: Assessment: Pt presents with good B hand and LE strength but has poor awareness of L foot during balance exercises and may have L sided neglect. PT recommends vision test. Pt requires skilled therapy to meet goals and has fair rehab potential. Sometimes he has difficulty understanding and following instructions. Short Term and Assembly Room Supervisor Goals 1. Ind with HEP 2. Pt will turn in a s[place]ovia with continuous steps and no LOB 3. Improved balance by improved TUG test to 12 seconds 4. Pt will take lateral steps on uneven surface with full awareness of L foot positioning x20' Treatment Plan 90 day POC ? 1. Manual therapy ? 2. Therex ? 3. Modalities as indicated, moist heat, ice, estim Frequency and Duration: 1-2x a week for 12 visits plus the eval Certification Dates: 07/12/25 to 10/10/25 Procedure Charges OP PT Eval Mod Complex 30 minutes: Yes
--- NOTE | 2025-07-18 14:52 | PT.ODAYNRPT ---
PT Outpatient Daily Note OP Daily Note Outpatient Physical Therapy Treatment Date: 07/18/25 Visit Reasons: Cerebrovascular accident Subjective: Same as time of evaluation Objective: See f/S for therex Assessment: Good balance on uneven surface and with single leg balance but his L foot doesn't seem to control as well Plan: Continue per POC Length of Time (minutes) of Treatment: 30 Minutes Procedure Charges Therapeutic Exercise 30 minutes: Yes
== END 2025-07-22 23:59 | disposition home or self-care (01) ==
LOC: CPTX 14:00
PROVIDERS: PCP Physician Assistant; Referring Provider Physician Assistant; Visit Provider Physician Assistant
DX: I69.398 Other sequelae of cerebral infarction (principal); R26.89 Other abnormalities of gait and mobility; I10 Essential (primary) hypertension
CPT/HCPCS: 97110; 97162

== ENCOUNTER 2025-08-21 15:00 | Outpatient (RCR) | payer MEDICARE, MEDICAID, SELFPAY ==
--- NOTE | 2025-07-24 13:46 | PTNOTE_ITS ---
PT Outpatient Daily Note OP Daily Note Outpatient Physical Therapy Treatment Date: 07/24/25 Visit Reasons: Cerebrovascular accident Subjective: Pt brought in by who is very encouraging. Objective: Please see flow sheet for the list. Assessment: Pt requires frequent verbal cues and demonstration to perform intervention with desired technique. Plan: Continue with pOC. Length of Time (minutes) of Treatment: 30 Minutes TUTORING ASSISTANT Service Modifier Method I: Divide the number of min of care provided by the TUTORING ASSISTANT/INSEAM TRIMMING MACHINE OPERATOR by the total min of care provided then multiply by 100. If greater than 11 percent modifier is required. Method II: Divide the total time of care provided to patient by 10 (round to the nearest whole number) and add 1 min. to set the minimum time requirement. If treatment total was 60 min., then 10% of 6 min PT CQ modifier applied: CQ Modifier applied Procedure Charges Therapeutic Exercise 30 minutes: Yes
--- NOTE | 2025-07-27 14:38 | PTNOTE_ITS ---
PT Outpatient Daily Note OP Daily Note Outpatient Physical Therapy Treatment Date: 07/27/25 Visit Reasons: Cerebrovascular accident Subjective: Pt reports he went for a walk today on a small hill with his . Objective: Please see flow sheet for ther ex list. Assessment: Pt requires verbal and tactile cues to avoid trunk rotation during lateral stepping exercise. Plan: Continue with poC. Length of Time (minutes) of Treatment: 30 Minutes GRANULATOR MACHINE OPERATOR Service Modifier Method I: Divide the number of min of care provided by the GRANULATOR MACHINE OPERATOR/GLUE SPRAYER by the total min of care provided then multiply by 100. If greater than 11 percent modifier is required. Method II: Divide the total time of care provided to patient by 10 (round to the nearest whole number) and add 1 min. to set the minimum time requirement. If treatment total was 60 min., then 10% of 6 min PT CQ modifier applied: CQ Modifier applied Procedure Charges Therapeutic Exercise 30 minutes: Yes
--- NOTE | 2025-07-31 14:48 | PT.ODAYNRPT ---
PT Outpatient Daily Note OP Daily Note Outpatient Physical Therapy Treatment Date: 07/31/25 Visit Reasons: Cerebrovascular accident Subjective: Pt reports he is very happy today because he made it to the top of the hill on his hike; explains he was only able to complete half of the hike on his last attempt. Objective: See F/S for therex Assessment: Performed therex well with no complaints; required frequent redirection to continue on track with exercises. Motivated to continue gaining strength and balance. Plan: Continue with POC Length of Time (minutes) of Treatment: 30 Minutes Procedure Charges Therapeutic Exercise 30 minutes: Yes
--- NOTE | 2025-08-03 15:08 | PTNOTE_ITS ---
PT Outpatient Daily Note OP Daily Note Outpatient Physical Therapy Treatment Date: 08/03/25 Visit Reasons: Cerebrovascular accident Subjective: Pt content to share that he has been walking up the hill. Objective: Please see flow sheet for ther ex list. Assessment: Pt requires frequent verbal cues to stay on task. Tactile cues for direction during lateral stepping exercise for pt to avoid rotating trunk. Plan: Continue with poC. Length of Time (minutes) of Treatment: 30 Minutes FAMILY RESOURCE MANAGEMENT PROFESSOR Service Modifier Method I: Divide the number of min of care provided by the FAMILY RESOURCE MANAGEMENT PROFESSOR/ANTONIO by the total min of care provided then multiply by 100. If greater than 11 percent modifier is required. Method II: Divide the total time of care provided to patient by 10 (round to the nearest whole number) and add 1 min. to set the minimum time requirement. If treatment total was 60 min., then 10% of 6 min PT CQ modifier applied: CQ Modifier applied Procedure Charges Therapeutic Exercise 30 minutes: Yes
--- NOTE | 2025-08-08 14:41 | PT.ODAYNRPT ---
PT Outpatient Daily Note OP Daily Note Outpatient Physical Therapy Treatment Date: 08/08/25 Visit Reasons: Cerebrovascular accident Subjective: Pt arrived with no complaints and expresses he is excited to continue with exercises today. Objective: See F/S for therex Assessment: Progressed to tandem stance balance with cross body cup stacking, demo'd good balance and control. Requires frequent vc to remain on task. Demo'd difficulty with comprehending lateral steps exercise with vc's and tc's required to avoid trunk rotation. Plan: Continue with POC Length of Time (minutes) of Treatment: 30 Minutes Procedure Charges Therapeutic Exercise 30 minutes: Yes
--- NOTE | 2025-08-14 14:38 | PT.ODAYNRPT ---
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 Objective: See F/S for therex performed Assessment: Progressed to tandem walk on airex; performs best with vc's to remain focused on foot placement. Demo'd improvement with balance; no LOB with ball tosses while in tandem stance. Needs frequent redirection to focus on exercises because he enjoys socializing. Plan: Continue with POC Length of Time (minutes) of Treatment: 30 Minutes Procedure Charges Therapeutic Exercise 30 minutes: Yes
--- NOTE | 2025-08-16 14:51 | PT.ODAYNRPT ---
PT Outpatient Daily Note OP Daily Note Outpatient Physical Therapy Treatment Date: 08/16/25 Visit Reasons: Cerebrovascular accident Subjective: Pt reports progress, notices he is getting stronger and building up endurance. Objective: Please see flow sheet for ther ex list. Assessment: Pt performed tandem stands with minimal sway and minimal SHIFT SUPERVISOR indicating progress. Plan: Continue with pOC. Length of Time (minutes) of Treatment: 30 Minutes BODY AND FENDER MECHANIC APPRENTICE Service Modifier Method I: Divide the number of min of care provided by the BODY AND FENDER MECHANIC APPRENTICE/AGENCY LEGAL COUNSEL by the total min of care provided then multiply by 100. If greater than 11 percent modifier is required. Method II: Divide the total time of care provided to patient by 10 (round to the nearest whole number) and add 1 min. to set the minimum time requirement. If treatment total was 60 min., then 10% of 6 min PT CQ modifier applied: CQ Modifier applied Procedure Charges Therapeutic Exercise 30 minutes: Yes
--- NOTE | 2025-08-21 15:29 | PT.ODAYNRPT ---
PT Outpatient Daily Note OP Daily Note Outpatient Physical Therapy Treatment Date: 08/21/25 Visit Reasons: Cerebrovascular accident Subjective: Pt states he is doing well and went on a hike this morning. Objective: See F/S for therex performed Assessment: Progressed to sit to stands with OH press of 2lb medicine ball; performed well with mod vc's and tc's for sequencing. Improved balance in tandem stance and lateral steps, min tc's from bars required to maintain balance. Plan: Continue with POC Length of Time (minutes) of Treatment: 30 Minutes Procedure Charges Therapeutic Exercise 30 minutes: Yes
== END 2025-08-21 23:59 | disposition home or self-care (01) ==
LOC: CPTX 15:00
PROVIDERS: PCP Physician Assistant; Referring Provider Physician Assistant; Visit Provider Physician Assistant
DX: I69.354 Hemiplegia and hemiparesis following cerebral infarction affecting left non-dominant side (principal); I69.398 Other sequelae of cerebral infarction; R26.89 Other abnormalities of gait and mobility; I10 Essential (primary) hypertension
CPT/HCPCS: 97110

== ENCOUNTER 2025-09-03 18:09 | Emergency (ER) | payer MEDICARE, MEDICAID, SELFPAY ==
[2025-09-03 18:10] VITALS: BMI 21.5
[2025-09-03 18:50] VITALS: BP 172/98; PULSE 82; RESP 18; TEMP 36.8; O2SAT 98
--- NOTE | 2025-09-03 18:57 | XR_ITS ---
Examination: Duplex scan of the lower extremity, unilateral right Date and time of exam: September 03, 2025, 1940 hours INDICATIONS: Right leg swelling and pain after injury today Technique: Duplex scan of the extremity veins using B-mode/grayscale imaging and Doppler spectral analysis and color flow Attention is directed to internal echogenicity, compression and augmentation involving these veins, color flow assessment, spectral analysis Findings: Major deep venous structures in the extremity demonstrate normal course and caliber. There is no evidence of deep vein thrombosis. Normal color flow and spectral analysis Impression: Negative for DVT..
--- NOTE | 2025-09-03 18:57 | XR_ITS ---
Examination: Knee, right, 3 views Technique: Knee AP, lateral, oblique 3 views Date and time of exam: September 03, 2025, 1918 hours INDICATIONS: Twisting injury to the knee today, knee pain FINDINGS: No fracture or dislocation. Moderate tricompartment osteoarthritis IMPRESSION: No fracture or dislocation
--- NOTE | 2025-09-03 21:22 | PD.EDLOWEX ---
Lower Extremity Injury RME/HPI General Chief Complaint: Extremity Injury, Lower Stated Complaint: RIGHT KNEE POPPED TODAY, USING WALKER Time Seen by Provider: 09/03/25 18:18 Arrival date/time: 09/03/25 18:09 This is a case of 65-year-old male with history of CVA osteoarthritis and chronic knee pain came in in the emergency room with his due to right knee pain and swelling today patient is walking today and noted that the right knee is having clicking sound and noted that the right leg is swelling thus they decided to sought consult here in the emergency room denies any numbness weakness or tingling sensation Limitations: no limitations Related Data Home Medications ?Medication ?Instructions ?Recorded ?Confirmed amlodipine 10 mg tablet (Norvasc) 10 mg PO QDAY 03/28/25 04/05/25 Held on 04/06/25. Instructions: resume with PCP, your blood pressure has been low in hospital losartan 100 mg tablet 100 mg PO QDAY 03/28/25 04/05/25 megestrol 20 mg tablet 20 mg PO BID 04/05/25 04/05/25 omeprazole 20 mg capsule,delayed 20 mg PO QDAY 04/05/25 04/05/25 release Previous Rx's ?Medication ?Instructions ?Recorded apixaban 5 mg tablet (Eliquis) 5 mg PO BID 1 month #60 tabs 03/29/25 atorvastatin 80 mg tablet 80 mg PO QDAY #30 tabs 03/29/25 tramadol 50 mg tablet 50 mg PO Q8H PRN pain #16 tabs 09/03/25 Allergies Allergy/AdvReac Type Severity Reaction Status Date / Time megestrol (From Megace) Allergy Severe suicidal Verified 09/03/25 18:13 ideation, depression ondansetron (From Zofran) Allergy Severe Anxiety, Verified 09/03/25 18:13 restlessness, depression Review of Systems Review of Systems Systems Reviewed: All systems reviewed, normal except as documented Constitutional Constitutional: Reports system reviewed and no additional complaints, except as documented and Reports as per HPI Cardiovascular Cardiovascular: Reports system reviewed and no additional complaints, except as documented and Reports as per HPI Respiratory Respiratory: Reports system reviewed and no additional complaints, except as documented and Reports as per HPI Gastrointestinal Gastrointestinal: Reports system reviewed and no additional complaints, except as documented and Reports as per HPI Musculoskeletal Musculoskeletal: Reports system reviewed and no additional complaints, except as documented and Reports as per HPI Neurologic Neurologic: Reports system reviewed and no additional complaints, except as documented and Reports as per HPI Past Medical History Past Medical History NEUROLOGIC: Positive Cerebrovascular Accident (03/27/25); Negative Seizures CARDIAC: Positive Cardiac Disorders, Atrial Fibrillation, Hypercholesterolemia and Hypertension; Negative Congestive Heart Failure RESPIRATORY: Negative Chronic Obstructive Pulmonary Disease (COPD) GENITOURINARY: Negative Renal Disease MUSCULOSKELETAL: Positive Musculoskeletal Disorders (right miniscus repair) ENDOCRINE: Negative Diabetes Mellitus Type 1 or Diabetes Mellitus Type 2 OTHER HISTORY: Negative Blood Transfusions Social History SMOKING STATUS: Never smoker SECOND HAND EXPOSURE: No SUBSTANCE USE: does not use ED Exam General Limitations: Present no limitations General appearance: Present alert, in no apparent distress and other (Patient is awake alert oriented not in distress nontoxic looking) Head Head exam: Present atraumatic, normocephalic and normal inspection Eye Eye exam: Present normal appearance, PERRL and EOMI ENT ENT exam: Present normal exam, normal oropharynx and mucous membranes moist Neck Neck exam: Present normal inspection, full ROM and trachea midline; Absent tenderness, meningismus, lymphadenopathy or thyromegaly Chest Chest inspection: Present normal inspection and symmetric chest wall rise Respiratory Respiratory exam: Present normal lung sounds bilaterally; Absent respiratory distress, wheezes, stridor, accessory muscle use or prolonged expiratory phase Cardiovascular Cardiovascular exam: Present regular rate, normal rhythm, normal heart sounds and other (Noted mild edema on the right lower leg); Absent bradycardia, tachycardia, irregular rhythm, systolic murmur or diastolic murmur Abdominal Exam Abdominal exam: Present soft and normal bowel sounds Extremities Exam Extremities exam: Present normal inspection and full ROM Expanded Lower Extremity Exam Knee exam: Present tenderness, swelling and other (Moderate tenderness on palpation on the right anterior knee no clicking sound noted with mild swelling no patellar tenderness or swelling no crepitation no deformity no redness no effusion ROM is limited pulses were full and equal capillary refill less than 2 seconds sensory intact); Absent abrasion, laceration, ecchymosis, deformity, crepitus, dislocation, erythema, effusion, anterior drawer sign, posterior draw sign, pain with valgus, laxity with valgus, pain with varus, laxity with varus or knee extension intact Lower leg exam: Present swelling and other (ROM is intact possibly due to CVA neurovascular intact); Absent tenderness, abrasion, laceration, ecchymosis, deformity, crepitus, dislocation, erythema, palpable cord, Homans' sign or Achilles tendon intact Back Exam Back exam: Present normal inspection and full ROM Neurological Exam Neurological exam: Present alert, oriented X3, CN II-XII intact, reflexes normal and other (Gait is unstable patient is using cane for ambulation); Absent motor sensory deficit Psychiatric Psychiatric exam: Present normal affect and normal mood Skin Skin exam: Present warm, dry, intact, normal color and other (Excellent skin turgor) Course Quality Measures none Orders Category Date Time Status Apply knee immobilizer NOW Care 09/03/25 21:10 Active US venous doppler LE RT Stat Exams 09/03/25 18:57 Completed XR knee RT 3V Stat Exams 09/03/25 18:57 Completed Dexamethasone Inj [Decadron Inj] Med 09/03/25 21:10 Discontinued 10 mg PO X1 ONE HYDROcodone*/APAP 5/325 [[place] 5/325] Med 09/03/25 21:10 Discontinued 1 tab PO X1 ONE Vital Signs Vital signs: Vital Signs Temperature 98.2 F 09/03/25 18:50 Pulse Rate 82 09/03/25 18:50 Respiratory Rate 18 09/03/25 18:50 Blood Pressure 172/98 H 09/03/25 18:50 Pulse Oximetry (%) 98 09/03/25 18:50 Oxygen Delivery Method Room Air 09/03/25 18:50 Oxygen saturation is 98% in room air normal Extremity Injury, Lower MDM Narrative MDM Narrative:: This is a case of 65-year-old male with history of CVA osteoarthritis and chronic knee pain came in in the emergency room with his due to right knee pain and swelling today patient is walking today and noted that the right knee is having clicking sound and noted that the right leg is swelling thus they decided to sought consult here in the emergency room denies any numbness weakness or tingling sensation physical examination patient is awake alert oriented not in distress nontoxic looking well-hydrated well-nourished noted moderate tenderness on palpation on the right anterior knee no clicking sound no patellar tenderness and swelling ROM is limited pulses were full and equal capillary refill is 2 seconds sensory is intact right leg noted no tenderness but with swelling negative Garcia signs negative Homans signs no calf tenderness based on my physical examination and history cannot totally rule out DVT?ultrasound Doppler on the right lower extremities was performed and noted to be negative for DVT x-ray of the right knee showed tricompartmental osteoarthritis but no fracture no dislocation knee immobilizer was applied patient tolerated well the above procedure neurovascular intac they were advised to follow-up with PCP in 2 days for reevaluation to be referred to orthopedic surgeon for further evaluation and treatment of tricompartmental osteoarthritis and to have MRI to rule out meniscus or ligament injury patient will use FLAVIA hose stocking and elevate right lower extremities to decrease the swelling patient was prescribed with tramadol as needed for pain patient is advised to follow-up with PCP in 2 days for reevaluation and for any worsening symptoms or any emergent concern they were advised to return in the emergency room immediately or call 911 Patient was discharged with comfortable condition walking with stable gait. Patient verbalized no further complains explained diagnosis and answered patient question. Patient is comfortable with the proposed management plan including the need to follow up with his/her primary care physician and any specialist if applicable Discussed patient for any urgent condition or worsening sx, He/She needed to go to emergency room immediately or call 911. Patient acknowledge the responsibility to follow up as instructed and to monitor her/his symptoms. For any persistence of the symptoms for more than 3-5 days return precaution advised. Discussed the result of the test and was given printed discharge instruction Patient data External records reviewed:: [facility] previous records Clinical information provided by:: patient and spouse Social determinants that could affect healthcare access:: none Patient has the following chronic illnesses:: None How is presenting disease/condition affected by chronic disease/condition?: no chronic disease Evaluation data The following diagnostics were reviewed and interpreted by me:: radiology exam(s) Lab and/or radiology exams considered but not ordered:: Reviewed Interpretation Summary: Reviewed Medications / Prescriptions Medications or Prescriptions considered but not ordered:: Given Medication administrations:: Medication Administration History Discontinued Medications Hydrocodone Bitart/Acetaminophen (Hydrocodone/[place]ap 5/325 Tablet) 1 tab PO X1 ONE Stop: 09/03/25 21:11 Dexamethasone Sodium Phosphate (Dexamethasone Sod Phos Inj 10 Mg/Ml Vial) 10 mg PO X1 ONE Stop: 09/03/25 21:11 Given Consultations Consultation(s) initiated? (list below): No Diagnosis Extremity Injury, Lower Differential Diagnosis: acute internal derangement of knee and ankle fracture (Knee joint effusion) Most likely diagnosis given after review of the tests above:: Tricompartmental osteoarthritis Admission Indicated Admission indicated?: not indicated Explain why admission is indicated or not indicated:: Not indicated Admission Request Was there a request for admission?: No Admission Attestation Admission request attestation: Not indicated Disposition Plan Disposition Plan: Discharge Discharge Attestation Discharge Attestation: The patient and all family members were given an opportunity to ask questions and understood the discharge instructions. Discharge instructions specifically effects, indications for sooner follow up or return to the emergency department, and the expected course of current diagnosis. Patient condition: Stable Discharge Plan Plan Patient Disposition: HOME (Self Care) Patient condition on transfer: Stable Prescriptions/Referrals Prescriptions/Med Rec: New tramadol 50 mg tablet 50 mg PO Q8H MDD max 4 tabs per day PRN (Reason: pain) Qty: 16 0RF No Action losartan 100 mg tablet 100 mg PO QDAY amlodipine [Norvasc] 10 mg tablet 10 mg PO QDAY Eliquis 5 mg tablet 5 mg PO BID 30 Days Qty: 60 2RF Rx Instructions: Take one tablet by mouth twice a day everyday atorvastatin 80 mg tablet 80 mg PO QDAY Qty: 30 3RF omeprazole 20 mg capsule,delayed release(DR/EC) 20 mg PO QDAY megestrol 20 mg tablet 20 mg PO BID Referrals: No Primary/Family,Physician [Primary Care Provider] - In 1 week Problem List Clinical Impression: Knee pain, right, Tricompartment osteoarthritis of right knee, Edema, peripheral Patient/Caregiver Discharge Instructions Education Materials: ED Knee Pain of Uncertain Cause, ED Osteoarthritis, ED Leg Swelling in a Single Leg, ED RICE Additional Instructions: Follow-up with your primary care physician in 2 days for reevaluation and to be referred to orthopedic surgeon for further evaluation and treatment of tricompartmental osteoarthritis for possible MRI to rule out meniscus or ligament injury recurrent persistent worsening symptoms or any emergent concern call 911 or go to the nearest emergency room take your medication as directed ice pack every 2 hours for 20 minutes for 24 hours then alternate with warm compress keep the knee immobilizer in place until cleared by your primary care physician elevate the right lower extremities to decrease swelling and use of FLAVIA hose stocking is advised Print Language: Indonesian Stand Alone Forms: Mimi Award Info., Patient Portal Info Letter PA/CORE COMPOSER MACHINE TENDER Supervising Physician PA/CORE COMPOSER MACHINE TENDER Supervising Physician: Dr. Azul Haney
[2025-09-03] MEDS: HYDROcodone/APAP 5/325 TABLET 1 TAB PO (21:44)
[2025-09-03] MEDS: DEXAMETHASONE SOD PHOS INJ 10 MG/ML VIAL PO (21:44)
== END 2025-09-03 21:48 | disposition home or self-care (01) ==
PROVIDERS: Emergency Provider Emergency Medicine
DX: M17.11 Unilateral primary osteoarthritis, right knee (principal)
CPT/HCPCS: 73562; 93971; 99284; J1100; A9270

== ENCOUNTER 2025-09-17 13:30 | Outpatient (RCR) | payer MEDICARE, MEDICAID, SELFPAY ==
--- NOTE | 2025-08-24 15:05 | PT.ODAYNRPT ---
PT Outpatient Daily Note OP Daily Note Outpatient Physical Therapy Treatment Date: 08/24/25 Visit Reasons: Cerebrovascular accident Subjective: Pt reports he went for a walk in the hill this morning, mentioned he also does other exercises. Objective: Please see flow sheet for ther ex list. Assessment: Pt requires cues to stay on task and demonstration with correction for foot placement to avoid tibial ER. Plan: Continue with pOC. Length of Time (minutes) of Treatment: 30 Minutes Procedure Charges Therapeutic Exercise 30 minutes: Yes
--- NOTE | 2025-08-29 13:38 | PT.ODAYNRPT ---
PT Outpatient Daily Note OP Daily Note Outpatient Physical Therapy Treatment Date: 08/29/25 Visit Reasons: Cerebrovascular accident Subjective: Pt reports he [place] the [place] 2 [place] this morning, mentioned he also does other exercises. Objective: See flow sheet for therex Assessment: Overall better balance in tandem stance and stepping over cones and lunging since starting therapy. Plan: Continue per POC. Length of Time (minutes) of Treatment: 30 Minutes Procedure Charges Therapeutic Exercise 30 minutes: Yes
--- NOTE | 2025-09-17 15:55 | PT.ODS1RPT ---
PT OP Progress/Discharge Note Date of Service: 09/17/25 Progress Note/DC Note Progress Note/Discharge Note: DC Note Patient Information Visit Reasons: Cerebrovascular accident Service Continue Service or Discharge: Discharge Discharge Date: 09/17/25 Status Subjective: Pt and his report he woke up with R knee pain last week or two ago and it hurts on the side and back of the knee to walk. Objective: LE strength: B ankle DF: 4/5 quads: R is limited to 3-/5 since recent setback TUG: not tested due to R knee injury Gait: antalgic with flexed R knee Assessment: Pt has attended 12/12 visits with good progress with goals up until recent setback with R knee pain. He now ambulates with R knee flexed due to pain which limits ambulatory distance and reassessment. Before this happened he was able to turn in a [place] with continuous steps and no LOB and had improved balance to take steps on uneven surface x20' to meet those goals. PT recommends further diagnostic imaging of R knee. Plan: D/C Procedure Charges Therapeutic Exercise 15 minutes: Yes
== END 2025-09-21 23:59 | disposition home or self-care (01) ==
LOC: CPTX 13:30
PROVIDERS: PCP Physician Assistant; Referring Provider Physician Assistant; Visit Provider Physician Assistant
DX: I69.398 Other sequelae of cerebral infarction (principal); R26.89 Other abnormalities of gait and mobility; M25.561 Pain in right knee; I10 Essential (primary) hypertension
CPT/HCPCS: 97110